=== PATIENT | female | born 1945 | race Hispanic/Latino ===

== ENCOUNTER 2017-03-30 14:30 | Observation (INO) | payer MEDICARE, MEDICAID ==
[2017-03-30 14:42] VITALS: BMI 31.9
[2017-03-30] MEDS ORDERED: Albuterol-Ipratrop 3 mg / 0.5 (3 ml) UD IH STA (15:11)
--- NOTE | 2017-03-30 15:11 | ED PDOC ---
Arrival/HPI <Joel Martinez DO - Last Filed: 03/30/17 15:35> - General Historian: Patient - History of Present Illness Time/Duration: < week Symptom Course: Worsening Quality: Tightness Severity Level: 4 Activities at Onset: Rest, Light <Angela Lancaster - Last Filed: 03/30/17 17:16> - General Chief Complaint: Shortness Of Breath Time Seen by Provider: 03/30/17 14:45 - History of Present Illness Narrative History of Present Illness (Text): 03/30/17 15:04 72 yo F w h/o COPD, active tobacco abuse, vertigo, anxiety, DJD presents to ER with 4 day h/o SOB, palpitations, tight midsternal CP, and elevated BP. Patient states she does not recall when she was doing at the time but approximately 4 days ago suddenly developed shortness of breath, palpitations, tight midsternal CP and palpitations; states she checked her SBP, found it to be 180-190, normally 120-130. Patient states she gets these episodes irrelevant to activity level at the time. States she has felt some L arm tingling during some of these episodes, which have been increasing in frequency. Patient states she would have come to ER last night but did not feel safe driving. Denies abd pain, n/v/d /c, fevers, chills, rashes, edema, confusion, dizziness, diaphoresis. (Angela Lancaster) Past Medical History - Provider Review Nursing Documentation Reviewed: Yes - Travel History Have you recently traveled outside [place] w/in the past 3 mons?: No - Infectious Disease Hx of Infectious Diseases: None - Tetanus Immunization Tetanus Immunization: Unknown - Cardiac Hx Cardiac Disorders: Yes (CAD, CP, cardiac cath x 4) Hx Hypertension: Yes - Pulmonary Hx Respiratory Disorders: Yes Hx Chronic Obstructive Pulmonary Disease (COPD): Yes (active smoker, Home O2 uses prn) Other/Comment: uses O2 at home - Neurological Hx Neurological Disorder: No Hx Paralysis: No - Renal Hx Renal Disorder: No - Endocrine/Metabolic Hx Endocrine Disorders: Yes Hx Diabetes Mellitus Type 2: Yes - Hematological/Oncological Hx Blood Disorders: No Hx Blood Transfusions: No Hx Blood Transfusion Reaction: No - Integumentary Hx Dermatological Disorder: No - Musculoskeletal/Rheumatological Hx Musculoskeletal Disorders: Yes Hx Arthritis: Yes - Gastrointestinal Hx Gastrointestinal Disorders: No - Genitourinary/Gynecological Hx Genitourinary Disorders: No - Psychiatric Hx Psychophysiologic Disorder: Yes Hx Anxiety: Yes Hx Emotional Abuse: No Hx Physical Abuse: No Hx Substance Use: No - Surgical History Hx Cardiac Catheterization: Yes Hx Eye Surgery: Yes - Anesthesia Hx Anesthesia: Yes Hx Anesthesia Reactions: Yes Hx Malignant Hyperthermia: No - Suicidal Assessment Feels Threatened In Home Enviroment: No <Angela Lancaster - Last Filed: 03/30/17 17:16> Family/Social History - Physician Review Nursing Documentation Reviewed: Yes Family/Social History: Hypertension Smoking Status: Current Some Days Smoker Hx Alcohol Use: No Hx Substance Use: No Hx Substance Use Treatment: No <Angela Lancaster - Last Filed: 03/30/17 17:16> Allergies/Home Meds <Joel Martinez DO - Last Filed: 03/30/17 15:35> <Angela Lancaster - Last Filed: 03/30/17 17:16> Allergies/Adverse Reactions: Allergies acetaminophen [From Tylenol] Allergy (Verified 03/30/17 14:41) RASH FISH Allergy (Verified 03/30/17 14:41) RASH iodine Allergy (Verified 03/30/17 14:41) RASH mercury (elemental) Allergy (Verified 03/30/17 14:41) RASH shellfish derived Allergy (Verified 03/30/17 14:41) RASH steroid Allergy (Uncoded 03/30/17 14:41) RASH Home Medications: Home Meds Medication Instructions Recorded Confirmed diaZEpam [Valium] 5 mg PO BID 07/21/16 03/30/17 Albuterol HFA [Ventolin HFA 90 1 inh INH PRN PRN 10/30/16 03/30/17 mcg/actuation (8 g)] Levothyroxine Sodium [Levoxyl] 1 tab PO DAILY 10/30/16 03/30/17 Review of Systems - Physician Review All systems were reviewed & negative as marked: Yes - Review of Systems Constitutional: Normal. absent: Fatigue, Fevers Eyes: Normal. absent: Vision Changes ENT: Normal Respiratory: Normal, SOB. absent: Cough, Sputum Cardiovascular: Chest Pain, Palpitations, TIM. absent: Edema, Calf Pain, Syncope Gastrointestinal: absent: Abdominal Pain, Constipation, Diarrhea, Nausea, Vomiting Genitourinary Female: absent: Dysuria, Frequency Musculoskeletal: absent: Back Pain, Neck Pain Skin: absent: Rash, Skin Lesions Neurological: Headache (left). absent: Dizziness Endocrine: Normal. absent: Diaphoresis Hemo/Lymphatic: Normal Psychiatric: Normal <Angela Lancaster - Last Filed: 03/30/17 17:16> Physical Exam Vital Signs Reviewed: Yes Temperature: Afebrile Blood Pressure: Normal Pulse: Regular Respiratory Rate: Normal Appearance: Positive for: Well-Appearing, Non-Toxic, Comfortable Pain Distress: None Mental Status: Positive for: Alert and Oriented X 3 - Systems Exam Head: Present: Atraumatic, Normocephalic Pupils: Present: PERRL Extroacular Muscles: Present: EOMI Conjunctiva: Present: Normal. No: Icteric Mouth: Present: Moist Mucous Membranes Pharnyx: Present: Normal Neck: Present: Normal Range of Motion. No: Meningeal Signs, JVD Respiratory/Chest: Present: Clear to Auscultation, Decreased Breath Sounds. No : Respiratory Distress, Accessory Muscle Use, Wheezes, Rhonchi Cardiovascular: Present: Regular Rate and Rhythm, Normal S1, S2 Abdomen: Present: Normal Bowel Sounds. No: Tenderness, Distention, Peritoneal Signs, Rebound, Guarding Upper Extremity: Present: Normal Inspection, Cyanosis, NORMAL PULSES. No: Edema Lower Extremity: Present: Normal Inspection. No: Edema Neurological: Present: GCS=15, CN II-XII Intact, Speech Normal Skin: Present: Warm, Dry, Normal Color. No: Rashes Psychiatric: Present: Alert, Oriented x 3, Normal Insight, Normal Concentration <Angela Lancaster - Last Filed: 03/30/17 17:16> Vital Signs Temp Pulse Resp BP Pulse Ox 03/30/17 16:57 65 18 148/72 100 03/30/17 15:01 98.1 F 72 18 152/71 H 97 Medical Decision Making <Joel Martinez DO - Last Filed: 03/30/17 15:35> - Lab Interpretations I have reviewed the lab results: Yes - RAD Interpretation Gyroscopic Instrument Tester: Radiologist - EKG Interpretation Interpreted by ED Physician: Yes Type: 12 lead EKG Comparison: Similar to previous EKG <Angela Lancaster Last Filed: 03/30/17 17:16> ED Course and Treatment: A 72 year old female with shortness of breath. Patient notes palpitations, midsternal chest tightness and elevated blood pressure. In agreement with resident note, which includes further HPI details. Patient was seen and evaluated with resident, came up with plan and treatment together. (Joel Martinez DO) 03/30/17 15:32 75 yo F w h/o COPD, active smoker, anxiety presents with 4 days h/o episodic elevated BP, substernal tight CP, palpitations. Cardio ISO, labs, EKG, CXR. ASA , kelton. Spoke with Dr. Monsivais, who accepts admission to her service for tele obs for serial troponins, continue cardiac workup. 03/30/17 16:44 Patient complains of persistent CP, epigastric abdominal pain and Left "head pain that is not a headache." Patient adamantly refuses IV morphine. Will try Toradol and protonix. (Angela Lancaster) - Lab Interpretations Lab Results: 03/30/17 16:06 03/30/17 16:06 Lab Results 03/30/17 16:06: Free T4 0.96, Total T3 1.04, TSH 3rd Generation 2.64 03/30/17 16:06: Sodium 142, Potassium 3.7, Chloride 102, Carbon Dioxide 29, Anion Gap 15, BUN 17, Creatinine 0.8, Est GFR ( Amer) > 60, Est GFR (Non- Af Amer) > 60, Random Glucose 88, Calcium 9.5, Magnesium 2.1, Total Bilirubin 0.8, AST 21, ALT 23, Alkaline Phosphatase 81, Lactate Dehydrogenase 432, Total Creatine Kinase 50, Troponin I < 0.01, Total Protein 7.9, Albumin 4.1, Globulin 3.8, Albumin/Globulin Ratio 1.1 03/30/17 16:06: WBC 10.8, RBC 4.56, Hgb 13.6, Hct 39.7, MCV 87.1, MCH 29.8, MCHC 34.3, RDW 14.1, Plt Count 260, MPV 9.6, Gran % 67.4, Lymph % (Auto) 24.6, Harlan % (Auto) 7.3 H, Eos % (Auto) 0.5 L, Baso % (Auto) 0.2, Gran # 7.27 H, Lymph # 2.7, Harlan # 0.8 H, Eos # 0.1, Baso # 0.02 03/30/17 16:00: Urine Color Straw, Urine Appearance Clear, Urine pH 6.0, Ur Specific [place] 1.010, Urine Protein Negative, Urine Glucose (UA) Negative, Urine Ketones Negative, Urine Blood Moderate H, Urine Nitrate Negative, Urine Bilirubin Negative, Urine Urobilinogen 0.2, Ur Leukocyte Esterase Trace H, Urine RBC Pending, Urine WBC Pending - RAD Interpretation Narrative RAD Interpretations (Text): 03/30/17 16:14 CXR - No active disease (Angela Lancaster) Radiology Orders: 03/30/17 15:01 CHEST PORTABLE [RAD] Stat - EKG Interpretation EKG Interpretation (Text): 03/30/17 16:16 NSR rate 72bpm, normal intervals, nonspecific ST/T changes (Angela Lancaster) - Medication Orders Current Medication Orders: Discontinued Medications Albuterol/Ipratropium (Duoneb 3 Mg/0.5 Mg (3 Ml) Ud) 3 ml IH STAT STA Stop: 03/30/17 15:12 Last Admin: 03/30/17 15:55 Dose: 3 ml Aspirin (Aspirin) 325 mg PO STAT STA Stop: 03/30/17 15:01 Last Admin: 03/30/17 15:54 Dose: Not Given Non-Admin Reason: Patient Refused Ketorolac Tromethamine (Toradol) 15 mg IVP STAT STA Stop: 03/30/17 16:33 Last Admin: 03/30/17 17:02 Dose: 15 mg Pantoprazole Sodium (Protonix Inj) 40 mg IVP STAT STA Stop: 03/30/17 16:45 - PA / [employer] / Resident Statement EDWARD has reviewed & agrees with the documentation as recorded. EDWARD has examined the patient and agrees with the treatment plan. - Scribe Statement The provider has reviewed the documentation as recorded by the Scribe <Joel Martniez DO - Last Filed: 03/30/17 15:35> <Angela Lancaster - Last Filed: 03/30/17 17:16> - Scribe Statement Sunita Lyon Provider Scribe Attestation: All medical record entries made by the Scribe were at my direction and personally dictated by me. I have reviewed the chart and agree that the record accurately reflects my personal performance of the history, physical exam, medical decision making, and the department course for this patient. I have also personally directed, reviewed, and agree with the discharge instructions and disposition. (Joel Martinez DO) Disposition/Present on Arrival <Joel Martinez DO - Last Filed: 03/30/17 15:35> - Present on Arrival Any Indicators Present on Arrival: No History of DVT/PE: No History of Uncontrolled Diabetes: No Urinary Catheter: No History of Decub. Ulcer: No History Surgical Site Infection Following: None - Disposition Have Diagnosis and Disposition been Completed?: Yes Disposition Time: 16:05 Patient Plan: Admission <Angela Lancaster - Last Filed: 03/30/17 17:16> - Disposition Diagnosis: Chest pain Disposition: HOSPITALIZED Patient Problems: Current Active Problems Problem Status Onset Chest pain Acute Condition: FAIR Discharge Instructions (ExitCare): Chest Pain (ED) Referrals: Prachi Monsivais MD [Primary Care Provider] - Follow up with primary
--- NOTE | 2017-03-30 15:30 | RAD ---
HISTORY: chest pain COMPARISON: 10/30/2016 FINDINGS: LUNGS: No active pulmonary disease. PLEURA: No significant pleural effusion identified, no pneumothorax apparent. CARDIOVASCULAR: Normal. OSSEOUS STRUCTURES: No significant abnormalities. VISUALIZED UPPER ABDOMEN: Normal. OTHER FINDINGS: None. IMPRESSION: No active disease.
[2017-03-30 16:13] LABS: ADD MANUAL DIFF? NO
[2017-03-30] MEDS ORDERED: Morphine 2 mg/ml ISec IVP STA (16:28)
[2017-03-30 16:34] LABS: ALB/GLOB RATIO 1.1 (1.1-1.8); ALKALINE PHOSPHATASE 81 U/L (38-133); ALT/SGPT 23 U/L (7-56); AST/SGOT 21 U/L (15-39); BASO # 0.02 K/mm3 (0.0-2.0); BASO % 0.2 % (0.0-3.0); BILIRUBIN,TOTAL 0.8 mg/dL (0.2-1.3); BLOOD UREA NITROGEN 17 mg/dL (7-21); CALCIUM 9.5 mg/dL (8.4-10.5); CARBON DIOXIDE 29 mmol/L (21-33); CHLORIDE 102 mmol/L (98-107); EOS # 0.1 (0.0-0.7); EOS % 0.5 % (1.5-5.0); GFR AFRICAN-AMERICAN > 60; GLUCOSE,RANDOM 88 mg/dL (70-110); GRAN # 7.27 (1.4-6.5); GRAN % 67.4 % (50.0-68.0); HEMATOCRIT 39.7 % (36.0-48.0); LYMPH # 2.7 (1.2-3.4); LYMPH % 24.6 % (22.0-35.0); MAGNESIUM 2.1 mg/dL (1.7-2.2); MEAN CELL VOLUME 87.1 fL (80.0-105.0); MEAN CORPUSCULAR HEMOGLOBIN 29.8 pg (25.0-35.0); MEAN CORPUSCULAR HGB CONC 34.3 g/dl (31.0-37.0); MEAN PLATELET VOLUME 9.6 fl (7.0-11.0); MONO # 0.8 (0.1-0.6); MONO % 7.3 % (1.0-6.0); PLATELET COUNT 260 10^3/uL (120.0-450.0); POTASSIUM 3.7 mmol/L (3.6-5.0); RED CELL DISTRIBUTION WIDTH 14.1 % (11.5-14.5); SODIUM 142 mmol/L (132-148); TOTAL PROTEIN 7.9 g/dL (5.8-8.3); WHITE BLOOD COUNT 10.8 10^3/ul (4.5-11.0)
[2017-03-30 16:45] LABS: URINE APPEARANCE CLEAR (CLEAR); URINE BILIRUBIN NEGATIVE (NEGATIVE); URINE BLOOD MODERATE (NEGATIVE); URINE COLOR STRAW (YELLOW); URINE GLUCOSE (UA) NEGATIVE (NEGATIVE); URINE KETONE NEGATIVE (NEGATIVE); URINE LEUKOCYTE ESTERASE TRACE Leu/uL (NEGATIVE); URINE PROTEIN NEGATIVE mg/dL (<30 mg/dL); URINE UROBILINOGEN 0.2 E.U./dL (<1 E.U./dL)
[2017-03-30 16:46] LABS: TROPONIN I < 0.01 ng/mL
[2017-03-30 16:50] LABS: FREE T4 0.96 ng/dL (0.78-2.19)
[2017-03-30 17:04] LABS: T3 1.04 ng/mL (0.97-1.69); THYROID STIMULATING HORMONE 2.64 mIU/mL (0.46-4.68)
[2017-03-30 17:45] LABS: URINE BACTERIA FEW (NEG); URINE EPITHELIAL CELLS 0 - 2 /hpf (0-5); URINE WBC 0 - 2 /hpf (0-6)
[2017-03-30] MEDS ORDERED: Levothyroxine 25 MCG TAB PO STA (19:50)
[2017-03-30] MEDS: Levalbuterol 0.63 MG/3 ML Inhal Soln UD IH SCH (20:16)
[2017-03-30 21:07] LABS: CHOLESTEROL 211 mg/dL (130-200)
[2017-03-30 21:49] LABS: TROPONIN I < 0.01 ng/mL
[2017-03-30] MEDS: Insulin Reg-LOW-Coverage SC SCH (22:08)
--- NOTE | 2017-03-30 22:10 | HP ---
HISTORY OF PRESENT ILLNESS: The patient is a 72-year-old who came to Emergency Room because of not f eeling well. She was complaining that she was having cough and congestion with increasing shortness of breath and she was also checking her blood pressure at home. That was fluctuating too. It went up to 180. She felt some heart pressure so she came to Emergency Room for further evaluation. She den ies any nausea or vomiting. Does have some headache and periorbital pressure. She is complaining of shortness of breath progressively increasing for the last 4 days associated with some midsternal jay st discomfort and palpitations. She still actively smokes. She gets chest pain with and without exe rtion. Denies any nausea. Does complain of epigastric discomfort that is chronic. PAST MEDICAL HISTORY: 1. Severe degenerative disk disease. 2. Anxiety disorder. 3. H. pylori gastritis. 4. History of fall with shoulder injury followed by surgical intervention of the right shoulder. ALLERGIES: SHE IS ALLERGIC TO ACETAMINOPHEN, FISH, IODINE, MERCURY AND STEROIDS. MEDICATIONS AT HOME: She is on Valium 5 mg twice a day, meclizine 25 q. 6 hours p.r.n., levothyroxin e 25 mcg daily, nebulizer treatment. SOCIAL HISTORY: She is single and homosexual and still smokes here and there. REVIEW OF SYSTEMS: Generalized weakness, headache, midsternal discomfort off and on. PHYSICAL EXAMINATION: GENERAL: She is awake and alert, communicative. VITAL SIGNS: She is afebrile, pulse 57, respirations 18, blood pressure . LUNGS: Bilateral fair airflow, expiratory rhonchi. HEART: S1, S2 audible. ABDOMEN: Soft and nontender. Slight epigastric discomfort. No rebound, no guarding. NEUROLOGIC: She is awake and alert, communicative. LABORATORY DATA: WBC is 10.8, hemoglobin 13.6, hematocrit 39, platelet 60. Chemistry: Sodium 142, potassium 3.7, chloride 102, CO2 , BUN 17, creatinine 0.8, blood sugar of 88. LFTs are within n ormal limits. Urinalysis showed moderate blood, trace leukocyte. X-ray of the chest is unremarkable . ASSESSMENT: 1. Chest pain, rule out underlying coronary artery disease. 2. Active smoker. 3. Chronic obstructive pulmonary disease exacerbation. 4. Anxiety disorder. 5. Chronic gastroesophageal reflux disease. 6. Degenerative disk disease. PLAN: The patient will be placed in observation. I will request Dr. Chong to see the patient. I will start her on Xopenex. SHE IS ALLERGIC TO STEROIDS; we will avoid that. Will give her Protonix and w ill reevaluate the patient in a.m. Prachi Monsivais MD cc: [phone] TT: 03/30/2017 22:10:05 ln
[2017-03-31] MEDS: Levalbuterol 0.63 MG/3 ML Inhal Soln UD IH SCH ×4 (02:57→19:31)
[2017-03-31] MEDS: Pantoprazole 40 mg EC Tab PO SCH (05:51)
[2017-03-31 07:40] LABS: ALB/GLOB RATIO 1.2 (1.1-1.8); ALKALINE PHOSPHATASE 78 U/L (38-133); ALT/SGPT 28 U/L (7-56); AST/SGOT 20 U/L (15-39); BLOOD UREA NITROGEN 17 mg/dL (7-21); CALCIUM 9.6 mg/dL (8.4-10.5); CARBON DIOXIDE 25 mmol/L (21-33); CHLORIDE 105 mmol/L (98-107); GFR AFRICAN-AMERICAN > 60; GLUCOSE,RANDOM 92 mg/dL (70-110); PHOSPHOROUS 4.8 mg/dL (2.5-4.5); POTASSIUM 3.9 mmol/L (3.6-5.0); SODIUM 142 mmol/L (132-148); TOTAL PROTEIN 7.1 g/dL (5.8-8.3)
[2017-03-31] MEDS: Insulin Reg-LOW-Coverage SC SCH ×4 (07:56→22:11)
[2017-03-31] MEDS ORDERED: Levothyroxine 25 MCG TAB PO SCH (10:00)
--- NOTE | 2017-03-31 12:22 | CT ---
PROCEDURE: CT HEAD WITHOUT CONTRAST. HISTORY: headache COMPARISON: 07/21/2016 TECHNIQUE: Axial computed tomography images were obtained through the head/brain without intravenous contrast. Radiation dose: Total exam DLP = 689 mGy-cm. This CT exam was performed using one or more of the following dose reduction techniques: Automated exposure control, adjustment of the mA and/or kV according to patient size, and/or use of iterative reconstruction technique. FINDINGS: HEMORRHAGE: No intracranial hemorrhage. BRAIN: No mass effect or edema. No atrophy or chronic microvascular ischemic changes. VENTRICLES: Unremarkable. No hydrocephalus. CALVARIUM: Unremarkable. PARANASAL SINUSES: Unremarkable as visualized. No significant inflammatory changes. MASTOID AIR CELLS: There is chronic mastoiditis on the left unchanged. OTHER FINDINGS: None. IMPRESSION: No acute intracranial findings. Chronic left-sided mastoiditis
--- NOTE | 2017-03-31 12:42 | PN ---
DATE: 03/31/2017 SUBJECTIVE: The patient is a 72-year-old who came in with fluctuating blood pressure, having left-si ded headache, having chest discomfort and chest pressure. PHYSICAL EXAMINATION: GENERAL: Today, she still has chest pressure and still complained of left-sided headache, better sierra n before. VITAL SIGNS: She is afebrile, pulse 89, respirations 19, blood pressure 136/64. LUNGS: Bilateral fair airflow, no rhonchi or crackle. HEART: S1, S2 audible. ABDOMEN: Soft, nontender, no rebound, no guarding. NEUROLOGIC: The patient is awake and alert, communicative. Moves all extremities. LABORATORY EXAMINATION: Blood sugar is 164. Today's sodium 142, potassium 3.9, chloride 105, CO2 of 25, BUN 17, creatinine 0.8, blood sugar of 92. Her urinalysis is unremarkable. CT scan of the head is pending. ASSESSMENT: 1. Chest pain, noncardiac. She had a stress test done in 06/[address] Lacey and that seems to be un remarkable. 2. Chronic obstructive pulmonary disease exacerbation. 3. Active smoking. 4. Gastroesophageal reflux disease. 5. Headache. The patient stated her daughter was recently diagnosed with brain aneurysm. She is co ncerned about that. PLAN: Get neuro evaluation also for evaluation of her headache. Once all this workup is done and re sults are available, we will make discharge plan. I will also start patient on small dose of Solu-Me drol. Continue her on Xopenex. Encourage physical therapy. We will make disposition plan either to night or tomorrow morning. Prachi Monsivais MD cc: [phone] TT: 03/31/2017 12:41:34 Confirmation # [id number] Dictation # [id number] sn
[2017-03-31] MEDS: MethylPREDNISolone 40 mg Vial IV SCH ×2 (13:07→22:12)
--- NOTE | 2017-03-31 13:51 | CON ---
DATE: 03/31/2017 REASON FOR CONSULTATION: Cardiac evaluation, chest pain on coughing, congestion. BRIEF CLINICAL HISTORY: This is a 72-year-old, possible transgender, with history of cardiac cathete rization multiple times, nonobstructive coronary artery disease, admitted with not feeling well, comp laining of congestion, cough and increasing shortness of breath and coughing feels chest pain and say s that blood pressure was fluctuating and not feeling good, so came in here. Also complained of shor tness of breath and 4 days ago had chest pain. BRIEF CLINICAL HISTORY: This is a 72-year-old, as mentioned transgender, history of multiple cardiac catheterizations, nonobstructive coronary artery disease, being followed by Dr. Shore, now being follo wed by Dr. Monsivais who admitted feeling very weak, dizzy, congestion, cough, chest pain 4 days ago, r etrosternal chest pain. PAST MEDICAL HISTORY: Significant for partial small bowel obstruction many years ago, post surgery, history of degenerative joint disease, history of trauma, history of multiple chest pain, noncardiac chest pain, multiple catheterizations, nonobstructive coronary artery disease, history of COPD, histo ry of significant hypertension, hyperlipidemia, history of TIA, history of COPD, history of asthma, h istory of tobacco abuse in the past. SOCIAL HISTORY: History of smoking, claims quit. Denies any history of drinking. PREVIOUS CARDIAC WORKUP: History of cardiac catheterization x 4, nonobstructive coronary artery dise ase. Last stress test 07/22/2016 that shows normal myocardial perfusion study, ejection fraction repo rted 73%, dated 07/22/2016. The patient had echocardiography 07/22/2016 that shows ejection fraction 5 5%-60%, mild aortic regurgitation, mild mitral regurgitation, mild tricuspid regurgitation, right kwaku tricular systolic pressure 36, no pericardial effusion noted. REVIEW OF SYSTEMS: As per HPI. CURRENT MEDICATIONS: The patient at home taking Valium, meclizine, levothyroxine, albuterol. REVIEW OF SYSTEMS: As per HPI. PHYSICAL EXAMINATION: VITAL SIGNS: Temperature afebrile, heart rate 89, blood pressure 136/64. HEENT: PERRLA. Extraocular muscles intact. NECK: Supple. No carotid bruits. No thyromegaly. CHEST: Clear to auscultation. HEART: S1, S2 regular. ABDOMEN: Soft. EXTREMITIES: Clubbing, cyanosis negative. BLOOD WORKUP: WBC 10.8, hemoglobin 13.6, hematocrit 39.7, platelet count 260. Chemistry shows sodiu m 142, potassium 3.9, chloride 105, carbon dioxide 25, anion gap of 16, BUN 17, creatinine 0.7. Trop onin 0.01 x 1, negative. TSH 1.04. EKG showed normal sinus, no acute ST-T changes noted. IMPRESSION: Atypical chest pain, history of multiple cardiac catheterizations in the past, nonobstru ctive coronary artery disease, hypothyroidism, ex-smoker. MOST RECENT CARDIAC WORKUP: The patient had a stress test 07/22/2016 that shows normal myocardial per fusion study, ejection fraction 72%. The patient had echocardiography also at that time that shows e jection fraction 55%, mitral regurgitation, mild tricuspid regurgitation, right ventricular systolic pressure 38. The patient had also Holter monitor that shows no significant arrhythmia, dated 07/24/20 15. Chest pain appears musculoskeletal and on coughing and so far, troponin remains negative, no evidence of acute myocardial infarction. RECOMMENDATION: We will follow up. If third set is negative, patient can be discharged home. Thank you, Dr. Monsivais, for providing us the opportunity in taking care of the patient. We will wait for the morning and if negative, patient can be discharged home. Dulce Lacey MD cc:Prachi Monsivais MD [phone] TT: 03/31/2017 12:15:45 Confirmation # [id number] Dictation # [id number] en
--- NOTE | 2017-03-31 20:38 | CON ---
DATE: 03/31/2017 REASON FOR CONSULTATION: Headaches. HISTORY OF PRESENT ILLNESS: The patient is a 72-year-old female who has been asked for evaluation of her headaches. As per patient, she has been having headaches mainly in the frontal region. She has this for quite a while. She said it fluctuates in intensity. It can last several hours. Headaches are not associated with any nausea, vomiting, photophobia or phonophobia. She was admitted with com plaints of shortness of breath. The patient also complains of dizziness which comes and goes. She a pparently has it for a while. She has a perforated eardrum on the left side. She has been taking me clizine and that does seem to help her dizziness. REVIEW OF SYSTEMS: Positive for chest pain. Positive for shortness of breath. Denies any constipat ion, diarrhea, dysuria, pyuria, cough or sputum production. Denies any hallucinations, skin rash. PAST MEDICAL HISTORY: Includes COPD, anxiety. MEDICATIONS: At home include Valium, meclizine, levothyroxine, and albuterol. ALLERGIES: ACETAMINOPHEN, FISH, IODINE, MERCURY AND SHELLFISH. SOCIAL HISTORY: She smokes 4-5 cigarettes a day. Denies use of any alcohol or illicit drugs. FAMILY HISTORY: Reviewed and noncontributory to the case. PHYSICAL EXAMINATION: GENERAL: The patient is an elderly pleasant female lying on the bed in no acute distress. VITAL SIGNS: Her blood pressure is 138/59, heart rate is 59 per minute, breathing at a rate of 16 pe r minute, temperature is 98 degrees Fahrenheit. HEENT: Normocephalic, atraumatic. NECK: Supple. There are no carotid bruits. LUNGS: Clear. CARDIOVASCULAR: S1, S2 audible with no murmurs. ABDOMEN: Soft, nontender, bowel sounds present. NEUROLOGIC EXAMINATION: MENTAL STATUS: The patient is awake, alert, oriented to time, place, person. Speech is fluent. Nam ing and repetition normal. Memory and cognition are intact. CRANIAL NERVES: Pupils are 4 mm bilaterally, reactive to light. Visual jesus are full. Extraocula r movements are intact. There is no facial asymmetry. Palate is upgoing bilaterally and tongue is m idline. MOTOR: Tone is normal. Power is 5/5 bilaterally in all extremities. Reflexes +1 and symmetrical. Plantars downgoing bilaterally. LABORATORY DATA: Reviewed, shows WBC of 10.8, hemoglobin 13.6, hematocrit of 39.7 and platelets of 2 60. Sodium is 142, potassium 3.9, chloride 105, carbon dioxide 25, BUN of , creatinine 0.8, and glucose of 92. Her T4 and TSH are within normal limits. She had a CT scan of the head done which s hows no acute intracranial findings. Chronic left-sided mastoiditis. IMPRESSION: 1. Headaches, which appear to be secondary to her anxiety/stress and is episodic in nature. 2. Dizziness, which appears to be labyrinthine dysfunction with history of chronic left-sided mastoi ditis. RECOMMENDATIONS: 1. The patient may take as needed like acetaminophen or nonsteroidal anti-inflammatory drugs f or her headaches. However, she does not want to take any medication at present. 2. The patient to be continued on meclizine for her dizziness. 3. If patient's headache gets more frequent and the patient is willing to take some prophylactic med ication like nortriptyline may be tried in the future. 4. No further neurologic recommendations at present. Please call neurology on an as needed basis. Thank you for the opportunity to participate in the care of this patient. Magi Florentino MD cc: [phone] TT: 03/31/2017 20:38:15 Confirmation # [id number] Dictation # [id number] eleuterio
--- NOTE | 2017-03-31 23:03 | CARD ---
APPROVED REPORT EKG Measurement Heart [id number] <Conclusion> Normal sinus rhythm Normal ECG
[2017-04-01] MEDS: Levalbuterol 0.63 MG/3 ML Inhal Soln UD IH SCH ×3 (01:44→13:42)
[2017-04-01] MEDS: Pantoprazole 40 mg EC Tab PO SCH (06:12)
[2017-04-01] MEDS ORDERED: Levothyroxine 25 MCG TAB PO SCH (07:30)
[2017-04-01] MEDS: Insulin Reg-LOW-Coverage SC SCH ×4 (08:11→17:21)
[2017-04-01 09:39] VITALS: BP 124/65; PULSE 62; RESP 19; TEMP 98.1; O2SAT 93
[2017-04-01] MEDS: MethylPREDNISolone 40 mg Vial IV SCH (09:42)
--- NOTE | 2017-04-01 13:20 | PN ---
DATE: 04/01/2017 The patient is in room 364, bed 1. REASON FOR CONSULTATION: Chest pain on coughing. HISTORY OF PRESENT ILLNESS: A 72-year-old, possible transgender with a history of cardiac catheteri zation multiple times, which showed nonobstructive coronary artery disease, admitted with feeling of congestion, cough, shortness of breath, and chest pain. When the patient gets coughing, gets chest p ain. No history of chest pain on exertion. The patient in 06/2016 had a stress test, echo, and Holter without any significant abnormality. The patient lying flat in bed without any respiratory distress. PHYSICAL EXAMINATION: VITAL SIGNS: Blood pressure 124/65, respirations 19, pulse 62, temperature 98.1. HEENT: Head is normocephalic. Eyes: Pupils are normal. Conjunctivae are normal. LUNGS: Clear. CARDIOVASCULAR: S1, S2. ABDOMEN: Soft, nontender, no organomegaly. Bowel sounds normal. EXTREMITIES: No clubbing, no cyanosis. LABORATORY DATA: WBC 10.8, hemoglobin 13.6, hematocrit 39.7, platelets 260. Sodium 142, potassium 3 .9, BUN 17, creatinine 0.8, random sugar 140. AST and ALT normal. Troponin less than 0.01, total pr otein 7.1, albumin 3.9. DIAGNOSES: Chest pain is atypical. It only happens when cough. Nonobstructive coronary artery dise ase, hypothyroidism, ex-smoker. PLAN: Treat the chest pain symptomatically. The patient is on Synthroid, Xopenex, methylprednisone 30 mg IV q. 12 hours, Protonix 40 daily. We will continue present therapy. We will follow with you. Dulce Townsend MD cc: [id number] TT: 04/01/2017 13:19:58 Confirmation # [id number] Dictation # [id number] dania
--- NOTE | 2017-04-01 21:30 | CON ---
DATE: 04/01/2017 Seen and examined at the [facility] earlier this afternoon. REQUEST FOR CONSULT: For intermittent diarrhea. HISTORY OF PRESENT ILLNESS: This is a 72-year-old female with a history of degenerative disk disease , chronic back pain, diabetes mellitus. The patient came to the Emergency Room with complaints of co ughing and congestion as well as shortness of breath. The patient came to the Emergency Room for fur ther evaluation. She did complain of some midsternal chest discomfort and palpitation as well as epi gastric discomfort but states it is chronic. This patient was seen by our service back in 06/2016. At that time, she complained of atypical chest pain. She underwent an endoscopy and found to have mi ld chronic gastritis with positive H. pylori. Gastric polyp was negative for any intestinal metaplas ia. The patient refused any treatment for H. pylori. She is aware that if left untreated it can cau se ulcers and possibly even cancer. This time she is complaining of intermittent diarrhea. She stat es that she has initially a regular bowel movement followed by diarrhea. Her last colonoscopy was ov er 5 years ago. She was being followed by Dr. Nevarez (legal financial specialist). She was scheduled a few times for followup as the patient had history of colon polyps. She reported that on the day that sh e had to have colonoscopy she refused to have procedure done, and since then will not have a colonosc opy, and she states that she is aware of the consequences of possible malignancy. Denies any melena or bright red blood per rectum. Her weight has remained steady. No reports of any nausea, vomiting, or any anorexia. No complaints of any dysphagia as well. In the Emergency Room, she had a head CT done for headache and that was negative for any hemorrhage or any infarcts; shows chronic left-sided mastoiditis. PAST MEDICAL HISTORY: As stated above. Also includes hypertension, diabetes mellitus, chronic back pain; positive H. pylori, not treated, patient refused treatment; anxiety disorder, history of fall w ith shoulder injury. PAST SURGICAL HISTORY: Right shoulder arthroscopy. Last endoscopy was 06/2016. Last colonoscopy wa s over 5 years ago, history of colon polyps. The patient refuses to have a colonoscopy. FAMILY HISTORY: Noncontributory at this time. SOCIAL HISTORY: The patient is a current day smoker. Denies any ETOH or substance abuse. Is a homo sexual. MEDICATIONS: Reviewed as per MAR. ALLERGIES: ACETAMINOPHEN, FISH, IODINE, MERCURY AND STEROIDS. REVIEW OF SYSTEMS: Systems reviewed with positive findings, see HPI. VITAL SIGNS: Temperature is 98.1, blood pressure 124/65, pulse 62, respirations 19, 93 O2 saturation . LABORATORY DATA: WBC 10.8, H and H are 13.6 and 39.7, platelets of 260. Sodium 142, K is 3.9, BUN 17, creatinine is 0.8. LFTs are within normal limits. Troponin is negative x 1. Urine was done whi ch shows a trace of leukocyte esterase, moderate blood, negative for protein and ketones. PHYSICAL EXAMINATION: HEENT: Sclerae are anicteric. NECK: Supple. CARDIAC: S1, S2. LUNGS: Decreased breath sounds. Did not hear any rales or wheeze. ABDOMEN: With bowel sounds. Softly distended. Some tenderness palpated in midabdomen. No rebound, guarding, or organomegaly. EXTREMITIES: Positive pulses. No edema noted. NEUROLOGIC: Awake, alert, and oriented. ASSESSMENT: This is a 72-year-old female with history of diabetes mellitus, hypertension, colon poly p; positive Helicobacter pylori, not treated, patient refuses treatment, complaining of intermittent abdominal pain. Rule out any Clostridium difficile, less likely as patient has not had any recent an tibiotic use. Rule out any malabsorption. PLAN: We will request for stool studies, C. diff, ova and parasite, stool culture and also obtain fe emmanuelle fat. Did discuss with the patient in detail regarding treatment for H. pylori, explained again. She is aware that untreated H. pylori may cause ulcers, severe ulcerations as well as gastric cancer . The patient refuses any treatment, does not want any antibiotics. Also discussed with the patient regarding colonoscopy evaluation in view of history of colon polyps and complaints of intermittent d iarrhea. The patient again refuses colonoscopy, stating that she is too old and also is afraid of th e risk factors involved. Did discuss with the patient that these tests are not 100%, that they are f or diagnostics. Risks, benefits and alternatives were discussed with the patient in detail. The pat ient may likely be discharged home today. Discussed can follow up in our outpatient office. Thank you for this consult and for allowing us to participate in your patient's care. We will make f urther recommendation based upon patient's clinical course. The patient was seen and case discussed with Dr. Sarmiento. Sarah CRAWFORD cc: [id number] TT: 04/01/2017 21:29:15 Confirmation # [id number] Dictation # [id number] mn
--- NOTE | 2017-04-01 23:49 | DS ---
The patient is a 72-year-old, seen and examined. Still has some chest tightness but much better than before. Complained of left-sided temporal and parietal area pain. Also complained of decreased imp aired hearing from the left side. The patient states she has multiple surgeries on the left ear done by Dr. Baldwin, and they told her that nothing can be done, however. PHYSICAL EXAMINATION: GENERAL: She feels a little better than before. VITAL SIGNS: She is afebrile, pulse 62, respirations 19, blood pressure 124/65. LUNGS: Bilateral fair airflow; however, has diffusely decreased breath sounds with expiratory rhonch i. HEART: S1, S2 audible. No murmur. ABDOMEN: Soft, nontender, no rebound, no guarding. NEUROLOGIC: The patient is awake and alert, able to communicate. LABORATORY EXAM: Blood sugar is 114. Her urine cultures are negative. CT scan of the head shows ch ronic mastoiditis. ASSESSMENT AND PLAN: 1. Labile hypertension, seems to be stable now. 2. Chronic mastoiditis. 3. Gastroesophageal reflux disease. 4. Intermittent diarrhea. PLAN: The patient is going to be discharged home on Protonix 40 daily, prednisone 20 mg daily for a week. She will continue on nebulizer treatment and I will follow her as outpatient. Prachi Monsivais MD cc: [phone] TT: 04/01/2017 23:48:56 ok
== END 2017-04-01 18:59 | disposition home or self-care (01) ==
LOC: ED 14:30 → ERH 17:44 → 2RNO 21:50 → 3RNO 03-31 19:03
PROVIDERS: ADMIT Internal Medicine; ATTEND Internal Medicine
DX: R07.89 Other chest pain (principal); I10 Essential (primary) hypertension; H70.12 Chronic mastoiditis, left ear; J44.1 Chronic obstructive pulmonary disease with (acute) exacerbation; K21.9 Gastro-esophageal reflux disease without esophagitis; R19.7 Diarrhea, unspecified; R42 Dizziness and giddiness; M19.90 Unspecified osteoarthritis, unspecified site; F41.9 Anxiety disorder, unspecified; F17.210 Nicotine dependence, cigarettes, uncomplicated; I25.10 Atherosclerotic heart disease of native coronary artery without angina pectoris; E78.5 Hyperlipidemia, unspecified; E03.9 Hypothyroidism, unspecified; R51 Headache; E11.9 Type 2 diabetes mellitus without complications; M54.9 Dorsalgia, unspecified; G89.29 Other chronic pain; K29.50 Unspecified chronic gastritis without bleeding; B96.81 Helicobacter pylori [H. pylori] as the cause of diseases classified elsewhere; H91.90 Unspecified hearing loss, unspecified ear; Z86.010 Personal history of colon polyps; Z86.73 Personal history of transient ischemic attack (TIA), and cerebral infarction without residual deficits
CPT/HCPCS: 36415; 70450; 71010; 80053; 80061; 81001; 82550; 82948; 83036; 83615; 83735; 84100; 84439; 84443; 84480; 84484; 85025; 87086; 93005; 94640; 94760; 96374; 96375; 96376; 99285; C9113; G0378; J1885; J2920

== ENCOUNTER 2017-07-22 15:20 | Observation (INO) | payer MEDICARE, MEDICAID ==
[2017-07-22 15:28] VITALS: BMI 31.4
--- NOTE | 2017-07-22 15:29 | ED PDOC ---
Arrival/HPI - General Time Seen by Provider: 07/22/17 15:24 Historian: Patient - History of Present Illness Narrative History of Present Illness (Text): 07/22/17 15:53 A 72 year old female, whose past medical history includes CAD, chest pain, Cardiac cath x 4, vertigo, and copd, presents to the emergency department complaining of elevated BP (150s), intermittent chest pain, and shortness of breath for a few months. Patient reports she noticed her fluctuating blood pressure 4 days ago. Patient denies of any other complaints. Time/Duration: < week (few months) Symptom Onset: Sudden Symptom Course: Unchanged Activities at Onset: Rest, Light Context: Home Past Medical History - Provider Review Nursing Documentation Reviewed: Yes - Infectious Disease Hx of Infectious Diseases: None - Tetanus Immunization Tetanus Immunization: Unknown - Cardiac Hx Cardiac Disorders: Yes (CAD, CP, cardiac cath x 4) Hx Hypertension: Yes - Pulmonary Hx Respiratory Disorders: Yes Hx Chronic Obstructive Pulmonary Disease (COPD): Yes (active smoker, Home O2 uses prn) Other/Comment: Nebulizer tx at home prn - Neurological Hx Neurological Disorder: No Other/Comment: hx vertigo - HEENT Hx Cataracts: Yes (sx bilat 2012) Other/Comment: bilat eyelid surg for drooping 2013 - Renal Hx Renal Disorder: No - Endocrine/Metabolic Hx Hypothyroidism: Yes (borderline) - Hematological/Oncological Hx Blood Disorders: No - Integumentary Hx Dermatological Disorder: No - Musculoskeletal/Rheumatological Hx Musculoskeletal Disorders: Yes Hx Arthritis: Yes Hx Degenerative Joint Disease: Yes Hx Falls: Yes - Gastrointestinal Hx Gastroesophageal Reflux: Yes - Genitourinary/Gynecological Hx Genitourinary Disorders: No - Psychiatric Hx Psychophysiologic Disorder: Yes Hx Anxiety: Yes Hx Emotional Abuse: No Hx Panic Disorder: Yes Hx Physical Abuse: No Hx Substance Use: No Other/Comment: hx claustrophobia - Surgical History Hx Cardiac Catheterization: Yes Hx Hysterectomy: Yes (at age 36) Hx Orthopedic Surgery: Yes (Right shoulder ligament repair) Other/Comment: sm tumors left breast removed 24 yrs ago - Anesthesia Hx Anesthesia: Yes Hx Anesthesia Reactions: Yes Hx Malignant Hyperthermia: No - Suicidal Assessment Feels Threatened In Home Enviroment: No Family/Social History - Physician Review Nursing Documentation Reviewed: Yes Family/Social History: No Known Family HX Smoking Status: Light Smoker < 10 Cigarettes Daily Hx Alcohol Use: No Hx Substance Use: No Hx Substance Use Treatment: No Allergies/Home Meds Allergies/Adverse Reactions: Allergies acetaminophen [From Tylenol] Allergy (Verified 07/22/17 15:28) RASH FISH Allergy (Verified 07/22/17 15:28) RASH iodine Allergy (Verified 07/22/17 15:28) RASH mercury (elemental) Allergy (Verified 07/22/17 15:28) RASH shellfish derived Allergy (Verified 07/22/17 15:28) RASH steroid Allergy (Uncoded 07/22/17 15:28) RASH Home Medications: Home Meds Medication Instructions Recorded Confirmed diaZEpam [Valium] 5 mg PO BID 07/21/16 07/22/17 Physical Exam - Physical Exam Narrative Physical Exam (Text): 07/22/17 15:56 - Review of Systems Constitutional: Normal. absent: Fatigue, Weight Change, Fevers Eyes: Normal ENT: Normal Respiratory: SOB absent: , Cough, Sputum Cardiovascular:Chest pain (intermittent) absent: Palpitations, Syncope Gastrointestinal: Normal absent: Abdominal pain, Diarrhea, Nausea, Vomiting Genitourinary: Normal. absent: Dysuria, Frequency, Hematuria Musculoskeletal: Normal. absent: Arthralgias, Back Pain, Neck Pain Skin: Normal Neurological: Normal absent: Focal Weakness Endocrine: Elevate blood pressure (150s) Hemo/Lymphatic: Normal Psychiatric: Normal - Physical exam Patient appears age appropriate, speaking full sentences without difficulty - Systems Exam Head: Present: Atraumatic, Normocephalic Pupils: Present: PERRL Extraocular Muscles: Present: EOMI Conjunctiva: Present: Normal Mouth: Present: Moist Mucous Membranes Neck: Present: Normal Range of Motion. No: MIDLINE TENDERNESS, Paraspinal Tenderness Respiratory/Chest: Present: Clear to Auscultation, Good Air Exchange. No: Respiratory Distress, Accessory Muscle Use, Tachypnic Cardiovascular: Present: Regular Rate and Rhythm, Normal S1, S2, Peripheral Pulses Present. No: Murmurs Abdomen: Present: Normal Bowel Sounds, No: Tenderness, Peritoneal Signs, Rebound, Guarding, Distention Back: Present: Normal Inspection. No: Midline Tenderness, Paraspinal Tenderness Upper Extremity: Present: Normal Inspection. No: Cyanosis, Edema Lower Extremity: Present: Normal Inspection. No: Edema Neurological: Present: GCS=15, Speech Normal, cranial nerves II through XII fully intact with no cerebellar abnormality, neuro-sensory fully intact. No focal neurological deficits. Skin: Present: Warm, Dry, Normal Color. No: Rashes Lymphatic: Present: OX3, NI, NC Psychiatric: Present: Alert, Oriented x 3, Normal Insight, Normal Concentration Vital Signs Reviewed: Yes Vital Signs Temp Pulse Pulse Resp BP Pulse Ox 07/22/17 15:35 78 07/22/17 15:31 97.9 F 96 H 19 145/84 96 Temperature: Afebrile Blood Pressure: Normal Pulse: Regular Respiratory Rate: Normal Appearance: Positive for: Well-Appearing Pain Distress: None Mental Status: Positive for: Alert and Oriented X 3 - Systems Exam Head: Present: Atraumatic, Normocephalic Pupils: Present: PERRL Extroacular Muscles: Present: EOMI Conjunctiva: Present: Normal Mouth: Present: Moist Mucous Membranes Neck: Present: Normal Range of Motion Respiratory/Chest: Present: Clear to Auscultation, Good Air Exchange. No: Respiratory Distress, Accessory Muscle Use Cardiovascular: Present: Regular Rate and Rhythm, Normal S1, S2. No: Murmurs Abdomen: Present: Normal Bowel Sounds. No: Tenderness, Distention, Peritoneal Signs Back: Present: Normal Inspection Upper Extremity: Present: Normal Inspection. No: Cyanosis, Edema Lower Extremity: Present: Normal Inspection. No: Edema Neurological: Present: GCS=15, CN II-XII Intact, Speech Normal Skin: Present: Warm, Dry, Normal Color. No: Rashes Psychiatric: Present: Alert, Oriented x 3, Normal Insight, Normal Concentration Medical Decision Making ED Course and Treatment: 07/22/17 15:29 Patient's previous records reviewed. Patient was last admitted in March 2017, with cough, congestion, shortness of breath, and chest pain. Patient has been seen by apparel sales associate that time, had negative troponins, her chest pain was thought to be atypical. As per Dr. Townsend's notes, patient has a history of nonobstructive coronary artery disease. Impression: 72 year old female with elevated BP (150s), intermittent chest pain , and shortness of breath. Normal physical exam. Plan: -- EKG -- Chest X-ray -- Urinalysis -- Labs -- Aspirin -- Nitrostat -- Reassess and disposition Prior Visits: Notes and results from previous visits were reviewed. Patient was last seen in the emergency department on 03/30/2017 for shortness of breath. Patient was admitted. Progress Notes: EKG shows NSR at [address] elevations with no prior for comparison. Interpreted by me. 07/22/17 16:57 Chest xray interpreted by ED physician shows no pneumothorax, no cardiomegaly, no infiltrates dw Dr. Swanson, accepted obs to his service pt in no distress, aware of and agrees with plan - Lab Interpretations Lab Results: 07/22/17 15:54 07/22/17 15:54 Lab Results 07/22/17 16:15: Urine Color Yellow, Urine Appearance Clear, Urine pH 6.0, Ur Specific [place] 1.015, Urine Protein Negative, Urine Glucose (UA) Negative, Urine Ketones Negative, Urine Blood Moderate H, Urine Nitrate Negative, Urine Bilirubin Negative, Urine Urobilinogen 0.2, Ur Leukocyte Esterase Small H, Urine RBC 1 - 3, Urine WBC 5 - 10, Ur Epithelial Cells 1 - 3, Urine Bacteria Few 07/22/17 15:54: Sodium 142, Potassium 4.0, Chloride 102, Carbon Dioxide 26, Anion Gap 18, BUN 15, Creatinine 0.8, Est GFR ( Amer) > 60, Est GFR (Non- Af Amer) > 60, Random Glucose 201 H, Calcium 9.5, Total Bilirubin 0.7, AST 30, ALT 31, Alkaline Phosphatase 93, Lactate Dehydrogenase 471, Total Creatine Kinase 58, Troponin I < 0.01, Total Protein 7.7, Albumin 4.5, Globulin 3.2, Albumin/Globulin Ratio 1.4 07/22/17 15:54: PT 10.6, INR 0.98, APTT 28.0 07/22/17 15:54: WBC 9.2, RBC 4.81, Hgb 14.5, Hct 42.5, MCV 88.4, MCH 30.1, MCHC 34.1, RDW 14.1, Plt Count 252, MPV 9.5, Gran % 66.0, Lymph % (Auto) 28.3, [place] % (Auto) 4.6, Eos % (Auto) 0.8 L, Baso % (Auto) 0.3, Gran # 6.09, Lymph # 2.6, [place] # 0.4, Eos # 0.1, Baso # 0.03 I have reviewed the lab results: Yes - RAD Interpretation Radiology Orders: 07/22/17 15:46 CHEST PORTABLE [RAD] Stat - Medication Orders Current Medication Orders: Diazepam (Valium) 5 mg PO BID OLIVE PRN Reason: Protocol Discontinued Medications Aspirin (Aspirin Chewable) 324 mg PO STAT STA Stop: 07/22/17 15:46 Last Admin: 07/22/17 16:24 Dose: 324 mg Nitroglycerin (Nitrostat Sl Tab) 0.3 mg SL STAT STA Stop: 07/22/17 15:46 Last Admin: 07/22/17 16:24 Dose: 0.3 mg - Scribe Statement The provider has reviewed the documentation as recorded by the Flores Colin Provider Scribe Attestation: All medical record entries made by the Scribe were at my direction and personally dictated by me. I have reviewed the chart and agree that the record accurately reflects my personal performance of the history, physical exam, medical decision making, and the department course for this patient. I have also personally directed, reviewed, and agree with the discharge instructions and disposition. Disposition/Present on Arrival - Present on Arrival Any Indicators Present on Arrival: No History of DVT/PE: No History of Uncontrolled Diabetes: No Urinary Catheter: No History Surgical Site Infection Following: None - Disposition Have Diagnosis and Disposition been Completed?: Yes Diagnosis: Chest pain Disposition: HOSPITALIZED Disposition Time: 17:00 Patient Plan: Observation Patient Problems: Current Active Problems Problem Status Onset Chest pain Acute Condition: STABLE Discharge Instructions (ExitCare): Chest Pain (ED) Referrals: Prachi Monsivais MD [Primary Care Provider] - Follow up with primary
[2017-07-22 16:07] LABS: BASO # 0.03 K/mm3 (0.0-2.0); BASO % 0.3 % (0.0-3.0); EOS # 0.1 (0.0-0.7); EOS % 0.8 % (1.5-5.0); GRAN # 6.09 (1.4-6.5); HEMATOCRIT 42.5 % (36.0-48.0); LYMPH # 2.6 (1.2-3.4); LYMPH % 28.3 % (22.0-35.0); MEAN CELL VOLUME 88.4 fl (80.0-105.0); MEAN CORPUSCULAR HEMOGLOBIN 30.1 pg (25.0-35.0); MEAN CORPUSCULAR HGB CONC 34.1 g/dl (31.0-37.0); MEAN PLATELET VOLUME 9.5 fl (7.0-11.0); MONO # 0.4 (0.1-0.6); MONO % 4.6 % (1.0-6.0); RED CELL DISTRIBUTION WIDTH 14.1 % (11.5-14.5); WHITE BLOOD COUNT 9.2 10^3/ul (4.5-11.0)
[2017-07-22 16:18] LABS: ALB/GLOB RATIO 1.4 (1.1-1.8); ALKALINE PHOSPHATASE 93 U/L (38-133); ALT/SGPT 31 U/L (7-56); AST/SGOT 30 U/L (15-39); BILIRUBIN,TOTAL 0.7 mg/dL (0.2-1.3); BLOOD UREA NITROGEN 15 mg/dL (7-21); CALCIUM 9.5 mg/dL (8.4-10.5); CARBON DIOXIDE 26 mmol/L (21-33); CHLORIDE 102 mmol/L (98-107); GFR AFRICAN-AMERICAN > 60; GLUCOSE,RANDOM 201 mg/dL (70-110); INR 0.98 (0.93-1.08); SODIUM 142 mmol/L (132-148); TOTAL PROTEIN 7.7 g/dL (5.8-8.3)
[2017-07-22 16:27] LABS: URINE BILIRUBIN NEGATIVE (NEGATIVE); URINE BLOOD MODERATE (NEGATIVE); URINE GLUCOSE (UA) NEGATIVE (NEGATIVE); URINE KETONE NEGATIVE (NEGATIVE); URINE LEUKOCYTE ESTERASE SMALL Leu/uL (NEGATIVE); URINE PROTEIN NEGATIVE mg/dL (<30 mg/dL); URINE UROBILINOGEN 0.2 E.U./dL (<1 E.U./dL)
[2017-07-22 16:29] LABS: URINE APPEARANCE CLEAR (CLEAR); URINE COLOR YELLOW (YELLOW)
[2017-07-22 16:31] LABS: TROPONIN I < 0.01 ng/mL
[2017-07-22 16:34] LABS: URINE BACTERIA FEW (NEG)
--- NOTE | 2017-07-22 18:46 | RAD ---
HISTORY: cough COMPARISON: Comparison chest dated 03/30/2017 FINDINGS: LUNGS: Poor inspiration with low lung volumes, mild crowded bronchovascular markings and mild bibasilar atelectasis. Prominent right hilar region. This could be secondary to prominent right main pulmonary artery however hilar adenopathy or mass not excluded. . Recommend followup CT scan of the chest. PLEURA: No significant pleural effusion identified, no pneumothorax apparent. CARDIOVASCULAR: Normal. OSSEOUS STRUCTURES: No significant abnormalities. VISUALIZED UPPER ABDOMEN: Normal. OTHER FINDINGS: None. IMPRESSION: Poor inspiration with low lung volumes, mild crowded bronchovascular markings and mild bibasilar atelectasis. Prominent right hilar region which could be be secondary to prominent right main pulmonary artery however hilar adenopathy or mass not excluded. . Recommend followup CT scan of the chest. Note this report was placed in [facility] review folder for followup
[2017-07-23 08:07] VITALS: TEMP 97.9
[2017-07-23] MEDS ORDERED: Insulin Reg-LOW-Coverage SC SCH (11:30)
[2017-07-23 16:18] VITALS: BP 149/56; O2SAT 96
[2017-07-23 16:36] VITALS: PULSE 55; RESP 37
--- NOTE | 2017-07-23 20:05 | CARD ---
APPROVED REPORT EKG Measurement Heart [id number] ID [id number] <Conclusion> Normal sinus rhythm Normal ECG
--- NOTE | 2017-07-24 01:52 | CON ---
DATE: 07/23/2017 LOCATION: The patient in ICU 128, bed 1. REASON FOR CONSULTATION: Chest pain. HISTORY OF PRESENT ILLNESS: The patient is a 72-year-old female admitted with history that since last 5 days, day and night she has continuous chest pain on the anterior chest wall where she is mildly tender. She also complained of a back pain for which she was told to have arthritis. The patient had multiple admission in the past for chest pain, she had cardiac catheterization 4 time and each time showed nonobstructive coronary artery disease. PAST MEDICAL HISTORY: Significant for partial small bowel obstruction many years ago, possible surgery, degenerative joint disease, history of trauma, history of multiple time chest pain, which was most of time noncardiac, 4 time cardiac catheterization which was nonobstructive coronary artery disease, history of COPD, hypertension, hyperlipidemia, TIA, asthma, history of tobacco abuse in the past. PERSONAL HISTORY: She used to smoke, she says she had stopped now. Denies any drinking. Previous cardiac catheterization as mentioned, the patient had 4 time cardiac catheterization and nonobstructive coronary artery disease. ALLERGIES: THE PATIENT ALLERGIC TO QUITE A FEW THINGS INCLUDING FISH, SHELLFISH, TYLENOL, IODINE, MERCURY. REVIEW OF SYSTEMS: All the system reviewed, positive mentioned in the history. The patient walks with a cane at home and otherwise, she is mostly in a chair or in the bed because of back pain. She says she gets back pain when she walks and it limits her walking. PHYSICAL EXAMINATION VITAL SIGNS: Blood pressure 128/70, respirations 20, pulse 54. The patient is afebrile. HEENT: Head is normocephalic. Pupils normal. Conjunctivae normal. Nose and throat normal. NECK: JVP is low, carotids equal. Thorax, AP diameter normal. LUNGS: Clear. The patient had a mild tenderness on the area of the pain on the anterior chest wall and she says that that is the chest pain, which she is having from last 5 days, continuous and for which she came to the hospital. ABDOMEN: Soft. Nontender. No organomegaly. EXTREMITIES: No clubbing and no cyanosis. LABORATORY DATA: WBC 9.2, hemoglobin 14.5, hematocrit 42.5, platelet 252. Sodium 142, potassium 4.0, BUN 15, creatinine 0.8. Troponin x2 negative. Random glucose 201, AST and ALT is normal. Total protein and albumin is normal. Chest x-ray; poor inspiration, low lung volumes, prominence of the right hilar region, which could be right vein pulmonary artery. EKG showed regular sinus rhythm, small R in lead III and aVF. DIAGNOSES: Chest pain, musculoskeletal with tenderness on the anterior chest wall; back pain; arthritis; chronic obstructive pulmonary disease, hypertension, hyperlipidemia, history of tobacco abuse in the past. PLAN: To treat this chest pain symptomatically. The patient can be tried on Naprosyn or Motrin; otherwise she will continue the medications, which she was taking at home and she should to continue to follow as outpatient. Dulce Townsend MD
--- NOTE | 2017-07-24 07:31 | HP ---
CHIEF COMPLAINT AND HISTORY OF PRESENT ILLNESS: This is a 72-year-old female who is coming into the hospital complaining of chest pain. The patient also says that her blood pressure was elevated and was choking at home. She has history of cardiac cath in the past by Dr. Townsend. She has history of vertigo. She states she does have hypertension, but does not take any blood pressure medications. She only uses Valium for her hypertension. She says that she is having intermittent chest pain. Over the past few months she has been having shortness of breath. She has no complaints of any dizziness, no nausea, no vomiting, no abdominal pain, no back pain, no dysuria, frequency or nocturia. PAST MEDICAL HISTORY: 1. DJD. 2. Anxiety. 3. H. pylori. ALLERGIES: ACETAMINOPHEN, IODINE, MORPHINE, STEROIDS. SOCIAL HISTORY: She is single. She does smoke at times. FAMILY HISTORY: Noncontributory. PHYSICAL EXAMINATION: VITAL SIGNS: Temperature is 97.9, pulse of 52, blood pressure is 149/56, respirations 20 and O2 saturation is 97%. GENERAL: The patient lying in bed, uncomfortable, and in no acute distress. HEENT: Atraumatic and normocephalic. Anicteric sclerae. Moist mucosa. [place] conjunctivae. No oral lesions. NECK: No JVD, anterior and posterior adenopathy, thyromegaly, or bruits. CARDIOVASCULAR: S1 and S2 regular. No murmur, rubs, or gallop. LUNGS: Clear to auscultation bilaterally. No wheezes, rales, or rhonchi. ABDOMEN: Bowel sounds are positive. Soft, nontender and nondistended. No hepatosplenomegaly. No rebound and no guarding. EXTREMITIES: No cyanosis, clubbing, or edema. NEUROLOGIC: No facial asymmetry. Tongue is midline. No uvula deviation. Power is 5/5 upper extremity and lower extremity. Sensation intact in upper extremity and lower extremity. PSYCHIATRIC: She is awake, alert and oriented x3. No anxiety or depression. She has normal affect. GENITOURINARY: No CVA tenderness. VASCULAR: 2+ pulses in the carotid pulses and pedal pulses. SKIN: No erythema or nodules. SPINE: Shows normal curvature. EXTREMITIES: No Cyanosis and clubbing, no edema. LABORATORY DATA: Reviewed. White count 9.2. Troponin x2 has been negative. EKG shows sinus rhythm. QTC is 416, No ST-T changes. Chest x-ray done shows poor inspiration with low lung volumes. There are no signs of any infiltrates. ASSESSMENT: 1. Chest pain, atypical. 2. Hypertension. 3. Anxiety. PLAN: The patient is admitted to the hospital. Patient's EKG was normal. She has had cardiac cath in the past by Dr. Townsend. She was given nitroglycerine in the ER. The patient has her fingerstick done as well today, she does have elevated sugars, but does not wish to be on any medications, so we will hold her medications. She also has hypertension, but she did not wish to be on blood pressures medications. She was seen by Dr. Townsend and cleared to be discharged. I did advice the patient that she should be on blood pressure medications because of the risk of having complications, she states she does understand, but prefers to use herbal supplements to try help her blood pressure. She is on heart healthy diet. She was advised to return to the hospital if her symptoms worsen. Discharge home. She is going to be followup as an outpatient by Dr. Monsivais. Condition stable. Activities increase as tolerated. Angel Swanson MD
== END 2017-07-23 18:00 | disposition home or self-care (01) ==
LOC: ED 15:20 → ERH 17:00 → CCU 20:57
PROVIDERS: ADMIT Internal Medicine Nephrology; ATTEND Internal Medicine Nephrology
DX: R07.89 Other chest pain (principal); J44.9 Chronic obstructive pulmonary disease, unspecified; I10 Essential (primary) hypertension; I25.10 Atherosclerotic heart disease of native coronary artery without angina pectoris; R42 Dizziness and giddiness; E78.5 Hyperlipidemia, unspecified; M54.9 Dorsalgia, unspecified; F40.240 Claustrophobia; M19.90 Unspecified osteoarthritis, unspecified site; Z87.891 Personal history of nicotine dependence; Z90.710 Acquired absence of both cervix and uterus
CPT/HCPCS: 71010; 80053; 81001; 82550; 83615; 84484; 85025; 85610; 85730; 87081; 87086; 93005; 99285; G0378

== ENCOUNTER 2017-10-15 14:50 | Inpatient (IN) | payer MEDICARE, MEDICAID ==
--- NOTE | 2017-10-15 15:32 | ED PDOC ---
Arrival/HPI - General Chief Complaint: Chest Pain Time Seen by Provider: 10/15/17 15:09 - History of Present Illness Narrative History of Present Illness (Text): 72 y/o F c PMHx CAD, Cardiac cath x 4, vertigo, and COPD p/w chest pain x 3 days , constant, midsternal, like tightness, associated with headache, dyspnea, nausea, sweatiness. Patient denies leg swelling, fever, cough, vomiting. Past Medical History - Provider Review Nursing Documentation Reviewed: Yes - Infectious Disease Hx of Infectious Diseases: None - Tetanus Immunization Tetanus Immunization: Unknown - Cardiac Hx Cardiac Disorders: Yes Hx Hypertension: Yes - Pulmonary Hx Respiratory Disorders: Yes Hx Chronic Obstructive Pulmonary Disease (COPD): Yes - Neurological Hx Neurological Disorder: Yes Hx Vertigo: Yes - HEENT Hx HEENT Disorder: Yes Hx Cataracts: Yes (sx bilat 2012) Other/Comment: bilat eyelid surg for drooping 2013 - Renal Hx Renal Disorder: No - Endocrine/Metabolic Hx Hypothyroidism: Yes - Hematological/Oncological Hx Blood Disorders: No - Integumentary Hx Dermatological Disorder: No - Musculoskeletal/Rheumatological Hx Musculoskeletal Disorders: Yes Hx Arthritis: Yes Hx Degenerative Joint Disease: Yes Hx Falls: Yes - Gastrointestinal Hx Gastroesophageal Reflux: Yes - Genitourinary/Gynecological Hx Genitourinary Disorders: No - Psychiatric Hx Psychophysiologic Disorder: Yes Hx Anxiety: Yes Hx Panic Disorder: Yes Hx Substance Use: No Other/Comment: hx claustrophobia - Surgical History Hx Cardiac Catheterization: Yes Hx Hysterectomy: Yes Hx Orthopedic Surgery: Yes (R SHOULDER) Other/Comment: sm tumors left breast removed 24 yrs ago - Anesthesia Hx Anesthesia: Yes - Suicidal Assessment Feels Threatened In Home Enviroment: No Family/Social History - Physician Review Nursing Documentation Reviewed: Yes Family/Social History: No Known Family HX Smoking Status: Former Smoker Hx Alcohol Use: No Hx Substance Use: No Hx Substance Use Treatment: No Allergies/Home Meds Allergies/Adverse Reactions: Allergies acetaminophen [From Tylenol] Allergy (Verified 10/15/17 15:09) RASH FISH Allergy (Verified 10/15/17 15:09) RASH iodine Allergy (Verified 10/15/17 15:09) RASH mercury (elemental) Allergy (Verified 10/15/17 15:09) RASH shellfish derived Allergy (Verified 10/15/17 15:09) RASH steroid Allergy (Uncoded 10/15/17 15:09) RASH Home Medications: Home Meds Medication Instructions Recorded Confirmed diaZEpam [Valium] 5 mg PO BID 07/21/16 10/15/17 Review of Systems - Physician Review All systems were reviewed & negative as marked: Yes - Review of Systems Constitutional: absent: Fevers Gastrointestinal: absent: Vomiting Physical Exam - Physical Exam Narrative Physical Exam (Text): Constitutional: No acute distress. Head: Normocephalic. Atraumatic. Eyes: PERRL. ENT: Moist mucous membranes. Neck: Supple. Cardiovascular: Regular rate. Chest: No tenderness. Respiratory: No wheezing. GI: Soft. Nontender. Nondistended. Back: No CVA tenderness. Musculoskeletal: Mild swelling of lower extremities. Skin: No rash. Neurologic: Alert, no focal deficit. Vital Signs Temp Pulse Pulse Resp BP Pulse Ox 10/15/17 18:01 65 18 134/59 L 100 10/15/17 17:03 66 19 136/58 L 100 10/15/17 15:26 69 10/15/17 15:25 97.8 F 70 19 150/80 100 10/15/17 15:11 98.2 F 75 18 138/79 98 Medical Decision Making ED Course and Treatment: EKG NSR 65 bpm, no ST elevations, T wave inversions infeiror and lateral, new since previous. Aspirin administered. CXR IMPRESSION: No active pulmonary disease Dr. Monsivais accepts patient to her service with Dr. Lacey/Kristian on consultation. Patient requires admission with new EKG changes and elevated proBNP in setting of chest pain and dyspnea. - Lab Interpretations Lab Results: 10/15/17 16:50 10/15/17 17:34 Lab Results 10/15/17 17:34: Sodium 143, Potassium 4.2, Chloride 101, Carbon Dioxide 29, Anion Gap 16, BUN 11, Creatinine 0.7, Est GFR ( Amer) > 60, Est GFR (Non- Af Amer) > 60, Random Glucose 91, Calcium 9.8, Total Bilirubin 1.0, AST 23, ALT 34, Alkaline Phosphatase 85, Total Creatine Kinase 98, Troponin I 0.03 D, NT- Pro-B Natriuret Pep 3600 H, Total Protein 7.6, Albumin 4.4, Globulin 3.1, Albumin/Globulin Ratio 1.4 10/15/17 16:50: PT 11.2, INR 1.03, APTT 29.0 10/15/17 16:50: WBC 8.7, RBC 4.57, Hgb 13.7, Hct 40.9, MCV 89.5, MCH 30.0, MCHC 33.5, RDW 14.5, Plt Count 254, MPV 10.2, Gran % 56.6, Lymph % (Auto) 36.0 H, [place] % (Auto) 6.4 H, Eos % (Auto) 0.8 L, Baso % (Auto) 0.2, Gran # 4.94, Lymph # 3.1, [place] # 0.6, Eos # 0.1, Baso # 0.02 - RAD Interpretation Radiology Orders: 10/15/17 15:22 CHEST PORTABLE [RAD] Stat - Medication Orders Current Medication Orders: Discontinued Medications Aspirin (Aspirin) 325 mg PO STAT STA Stop: 10/15/17 15:23 Last Admin: 10/15/17 17:02 Dose: 325 mg Disposition/Present on Arrival - Present on Arrival Any Indicators Present on Arrival: No History of DVT/PE: No History of Uncontrolled Diabetes: No Urinary Catheter: No History of Decub. Ulcer: No History Surgical Site Infection Following: None - Disposition Have Diagnosis and Disposition been Completed?: Yes Diagnosis: Chest pain, Elevated brain natriuretic peptide (BNP) level, Acute electrocardiogram changes Disposition: HOSPITALIZED Disposition Time: 18:00 Patient Plan: Admission, Telemetry Condition: GUARDED Discharge Instructions (ExitCare): Chest Pain (ED) Referrals: Vanessa Ramon, [Primary Care Provider] - Follow up with primary Forms: [employer] ([place])
--- NOTE | 2017-10-15 16:04 | RAD ---
HISTORY: cp, dyspnea COMPARISON: 07/22/2017. FINDINGS: LUNGS: The lungs are well inflated and clear. PLEURA: No significant pleural effusion identified, no pneumothorax apparent. CARDIOVASCULAR: Normal. OSSEOUS STRUCTURES: No significant abnormalities. VISUALIZED UPPER ABDOMEN: Normal. OTHER FINDINGS: None. IMPRESSION: No active pulmonary disease.
[2017-10-15 17:07] LABS: BASO # 0.02 K/mm3 (0.0-2.0); BASO % 0.2 % (0.0-3.0); EOS # 0.1 (0.0-0.7); EOS % 0.8 % (1.5-5.0); GRAN # 4.94 (1.4-6.5); GRAN % 56.6 % (50.0-68.0); HEMATOCRIT 40.9 % (36.0-48.0); LYMPH # 3.1 (1.2-3.4); MEAN CELL VOLUME 89.5 fl (80.0-105.0); MEAN CORPUSCULAR HGB CONC 33.5 g/dl (31.0-37.0); MEAN PLATELET VOLUME 10.2 fl (7.0-11.0); MONO # 0.6 (0.1-0.6); MONO % 6.4 % (1.0-6.0); RED CELL DISTRIBUTION WIDTH 14.5 % (11.5-14.5); WHITE BLOOD COUNT 8.7 10^3/ul (4.5-11.0)
[2017-10-15 17:13] LABS: INR 1.03 (0.93-1.08)
[2017-10-15 17:52] LABS: ALB/GLOB RATIO 1.4 (1.1-1.8); ALKALINE PHOSPHATASE 85 U/L (38-126); ALT/SGPT 34 U/L (7-56); AST/SGOT 23 U/L (14-36); BLOOD UREA NITROGEN 11 mg/dL (7-21); CALCIUM 9.8 mg/dL (8.4-10.5); CARBON DIOXIDE 29 mmol/L (21-33); CHLORIDE 101 mmol/L (98-107); GFR AFRICAN-AMERICAN > 60; GLUCOSE,RANDOM 91 mg/dL (70-110); POTASSIUM 4.2 mmol/L (3.6-5.0); SODIUM 143 mmol/L (132-148); TOTAL PROTEIN 7.6 g/dL (5.8-8.3)
[2017-10-15 18:04] LABS: TROPONIN I 0.03 ng/mL
[2017-10-15 19:57] LABS: CHOLESTEROL 216 mg/dL (130-200)
--- NOTE | 2017-10-15 21:47 | CARD ---
APPROVED REPORT EKG Measurement Heart [id number] IA [id number] <Conclusion> Normal sinus rhythm Inferior infarct, age undetermined Cannot rule out Anterior infarct, age undetermined T wave abnormality, consider lateral ischemia Abnormal ECG
--- NOTE | 2017-10-15 21:48 | CT ---
EXAM: CT Head Without Intravenous Contrast CLINICAL HISTORY: 72 years old, female; Signs and symptoms; Dizziness TECHNIQUE: Axial computed tomography images of the head/brain without intravenous contrast. All CT scans at this facility use one or more dose reduction techniques, viz.: automated exposure control; ma/kV adjustment per patient size (including targeted exams where dose is matched to indication; i.e. head); or iterative reconstruction technique. COMPARISON: CT - HEAD W/O CONTRAST 2017-03-31 11:50 FINDINGS: Brain: No acute intracranial hemorrhage. Age-appropriate periventricular white matter disease. No edema. Ventricles: Age-appropriate ventriculomegaly. Bones: No acute displaced fracture. Sinuses: Unremarkable as visualized. No acute sinusitis. Mastoid air cells: Unremarkable as visualized. No mastoid effusion. IMPRESSION: No acute intracranial hemorrhage, or suspicious mass effect.
[2017-10-16] MEDS: Levalbuterol 1.25 MG/3 ML Inhal Soln UD IH SCH ×4 (01:48→19:40)
--- NOTE | 2017-10-16 01:55 | HP ---
HISTORY OF PRESENT ILLNESS: The patient is a 72-year-old female. She was seen in office today, was complaining of chest pain, shortness of breath, also having chest pressure intermittently for 3 days, complaining of left facial and left arm tingling, complaining of generalized weakness, complaining of not eating and drinking and feels very dehydrated. PAST MEDICAL HISTORY: She has significant past medical history for: 1. Degenerative disk disease. 2. History of partial gastrectomy. 3. History of partial small bowel obstruction. 4. Anxiety disorder. 5. Hypertension. 6. Borderline diabetes. ALLERGIES: SHE IS ALLERGIC TO ACETAMINOPHEN, FISH, IODINE, , AND STEROIDS. SOCIAL HISTORY: She is single, heavy smoker, and still actively smokes. No history of alcohol use. REVIEW OF SYSTEMS: Significant for generalized weakness, poor appetite, and epigastric discomfort. PHYSICAL EXAMINATION: GENERAL: The patient is awake, alert, oriented, and communicative. VITAL SIGNS: She is afebrile, pulse is 65, respirations are 18, and blood pressure is 134/59. LUNGS: Bilateral fair airflow. Few expiratory rhonchi posteriorly. HEART: S1 and S2 audible. ABDOMEN: Soft and nontender. Slight epigastric discomfort. No rebound or guarding. NEUROLOGIC: She is awake, alert, and oriented. No focal deficit. LABORATORY DATA: WBC 8.7, hemoglobin 13, hematocrit 40, and platelets 257. PT 11.2 and INR 1.03. Chemistry; sodium 143, potassium 4.2, chloride 101, CO2 of 29, BUN 11, creatinine 0.7, and blood sugar of 91. LFTs are within normal limits. BNP is 3600. ASSESSMENT: 1. Chest pain, rule out underlying coronary ischemia. 2. Chronic obstructive pulmonary disease. 3. Gastroesophageal reflux disease. 4. Anxiety disorder. 5. Degenerative disk disease. PLAN: The patient will be admitted on telemetry. We will monitor blood sugar. We will monitor her cardiac enzyme. Start her on aspirin. Start her on nebulizer treatment. Cardiology consult by Dr. Lacey has been requested. Prachi Monsivais MD
[2017-10-16 02:27] VITALS: BMI 31.7
[2017-10-16 07:06] LABS: ALB/GLOB RATIO 1.3 (1.1-1.8); ALKALINE PHOSPHATASE 67 U/L (38-126); ALT/SGPT 36 U/L (7-56); AST/SGOT 24 U/L (14-36); BILIRUBIN,TOTAL 0.9 mg/dL (0.2-1.3); BLOOD UREA NITROGEN 14 mg/dL (7-21); CALCIUM 9.1 mg/dL (8.4-10.5); CARBON DIOXIDE 30 mmol/L (21-33); CHLORIDE 105 mmol/L (98-107); GFR AFRICAN-AMERICAN > 60; GLUCOSE,RANDOM 107 mg/dL (70-110); POTASSIUM 3.7 mmol/L (3.6-5.0); SODIUM 142 mmol/L (132-148); TOTAL PROTEIN 6.7 g/dL (5.8-8.3)
[2017-10-16 07:10] LABS: FREE T4 0.91 ng/dL (0.78-2.19)
[2017-10-16 07:23] LABS: THYROID STIMULATING HORMONE 4.15 mIU/mL (0.46-4.68)
[2017-10-16 08:14] LABS: TROPONIN I 0.02 ng/mL
[2017-10-16] MEDS ORDERED: Aminophylline 25 mg/ml Inj ONE (11:53)
--- NOTE | 2017-10-16 14:32 | CON ---
DATE:10/16/2017 REASON FOR CONSULTATION: Chest pain, tingling sensation in upper extremity, neck, and the lower extremity, and shortness of breath. BRIEF CLINICAL HISTORY: This is a 72-year-old female possible transgender with history of cardiac catheterization multiple times, nonobstructive coronary artery disease, admitted, says that sharp tingling sensation in the left arm, left leg, and then she feels off and on some shortness of breath and vague type of chest pain. Denies any dyspnea on exertion. Denies any shortness of breath on exertion. It happened itself and is spontaneously low aggravating or relieving factor as of now. PAST MEDICAL HISTORY: Significant for partial small bowel obstruction many years ago, history of degenerative joint disease, history of trauma, history of multiple admissions with chest pain, status post cardiac catheterization four times, nonobstructive coronary artery disease, but there is fear of unknown that may be clogging artery in the brain or clogging artery in the chest, that is why came here, history of anxiety disorder, history of hypertension, and history of borderline diabetes. PAST SURGICAL HISTORY: History of partial gastrectomy, history of small bowel obstruction. SOCIAL HISTORY: Actively tobacco abuse half pack a day. Denies any history of alcohol drinking. PREVIOUS CARDIAC WORKUP: As follows, history of cardiac catheterization x4, nonobstructive coronary artery disease, last stress test on 07/22/2016, that shows normal myocardial perfusion study, ejection fraction 73% dated 07/22/2016. The patient has had also echocardiography on 07/22/2016 that showed ejection fraction 55% to 60%, mild aortic regurgitation, mild mitral regurgitation, mild tricuspid regurgitation, right ventricular systolic pressure 36, no pericardial effusion noted. CURRENT MEDICATIONS: The patient is taking at home aspirin, , diazepam, and Xopenex. REVIEW OF SYSTEMS: As per HPI. PHYSICAL EXAMINATION: VITAL SIGNS: Temperature afebrile, heart rate 72, and blood pressure 113/62. HEENT: PERRLA. Extraocular muscles intact. NECK: Supple. No carotid bruits or thyromegaly. CHEST: Clear to auscultation. HEART: S1 and S2 regular. ABDOMEN: Soft. EXTREMITIES: Clubbing and cyanosis negative. EKG shows normal sinus T-inversion II, III, aVF, V5, V6 when compared from the previous EKG, the T wave changes are new. LABORATORY DATA: As follows; WBC 8.7, hemoglobin 13.3, hematocrit 40.9, and platelet count 254. Chemistry shows sodium of 140, potassium of 3.7, chloride 105, carbon dioxide 30, anion gap of 11, BUN 14, and creatinine 0.8. Troponin 0.03 negative. IMPRESSION AND PLAN: Atypical chest pain, last stress test more than a year ago, but new EKG changes T-wave changes V3, V4, V5, lead II, III, aVF, history of obesity, history of nonobstructive coronary artery disease, status post cardiac catheterization multiple times, hypothyroidism, and active tobacco abuse. Given the multiple risk factors of coronary artery disease and abnormal EKG, I suggest repeat one troponin. If the troponin is negative, we will do stress and echo. Further recommendations after the stress test. Also, we will add TSH, lipid profile, and hemoglobin A1c. We will follow with you. We will keep n.p.o. Thank you Dr. Monsivais for the opportunity in taking care of the patient, Geneva Dunham. Dulce Lacey MD
--- NOTE | 2017-10-16 15:32 | CP.PCM.CON ---
<Joaquín Gregg - Last Filed: 10/16/17 20:41> History of Present Illness - History of Present Illness History of Present Illness: Neurology consult note for Dr. Saab's service - Vania Gregg PGY2 Reason for consult: Dizziness HPI: Patient is a 72 year-old female with past medical history of partial small bowel obstruction, partial gastrectomy, history of hpylori, severe degenerative disk disease, hypertension, chronic vertigo with prior vestibular treatment and meclizine use that presented to [facility] with complaints of chest pain. She reported that her chest pain has been intermittent in nature starting 3 days prior to presentation and associated with left facial and arm parasthesias. She also reported feeling fatigued, generalized weakness and having a poor appetite. She denied focal weakness, numbness, vision changes, hearing changes, loss of consciousness, fever, chills, cough, abdominal pain, nausea, vomiting. In the ED, a head CT was done which revealed no acute intracranial abnormalities. Neurology was consulted for evaluation of dizziness. Patient admits to having chronic dizziness that she describes as the room is spinning that is exacerbated by rapid head movements. 12point ROS as per HPI above, otherwise negative PMH: as stated above PSH: partial gastrectomy Allergies: acetaminophen, fish, iodine, mercury Family Hx: Non-contributory Social Hx: Extensive tobacco use, denies illicit drug and alcohol use Past Patient History - Infectious Disease Hx of Infectious Diseases: None - Tetanus Immunizations Tetanus Immunization: Unknown - Past Social History Smoking Status: Former Smoker - CARDIAC Hx Cardiac Disorders: Yes Hx Hypertension: Yes - PULMONARY Hx Respiratory Disorders: Yes Hx Chronic Obstructive Pulmonary Disease (COPD): Yes - NEUROLOGICAL Hx Neurological Disorder: Yes - HEENT Hx HEENT Problems: Yes Hx Cataracts: Yes (sx bilat 2012) Other/Comment: bilat eyelid surg for drooping 2013 - RENAL Hx Chronic Kidney Disease: No - ENDOCRINE/METABOLIC Hx Hypothyroidism: Yes - HEMATOLOGICAL/ONCOLOGICAL Hx Blood Disorders: No - INTEGUMENTARY Hx Dermatological Problems: No - MUSCULOSKELETAL/RHEUMATOLOGICAL Hx Falls: Yes - GASTROINTESTINAL Hx Gastroesophageal Reflux: Yes - GENITOURINARY/GYNECOLOGICAL Hx Genitourinary Disorders: No - PSYCHIATRIC Hx Psychophysiologic Disorder: Yes Hx Anxiety: Yes Hx Panic Symptoms: Yes Hx Substance Use: No Other/Comment: hx claustrophobia - SURGICAL HISTORY Hx Cardiac Catheterization: Yes Hx Hysterectomy: Yes Hx Orthopedic Surgery: Yes (R SHOULDER) Other/Comment: sm tumors left breast removed 24 yrs ago - ANESTHESIA Hx Anesthesia: Yes Meds Allergies/Adverse Reactions: Allergies Allergy/AdvReac Type Severity Reaction Status Date / Time acetaminophen [From Tylenol] Allergy RASH Verified 10/15/17 15:09 FISH Allergy RASH Verified 10/15/17 15:09 iodine Allergy RASH Verified 10/15/17 15:09 mercury (elemental) Allergy RASH Verified 10/15/17 15:09 shellfish derived Allergy RASH Verified 10/15/17 15:09 steroid Allergy RASH Uncoded 10/15/17 15:09 - Medications Medications: Current Medications Aspirin (Ecotrin) 81 mg PO DAILY [facility] Last Admin: 10/16/17 09:20 Dose: 81 mg Diazepam (Valium) 5 mg PO BID [facility] PRN Reason: Protocol Last Admin: 10/16/17 09:20 Dose: 5 mg Levalbuterol HCl (Xopenex) 1.25 mg IH [id number] [facility] Last Admin: 10/16/17 13:41 Dose: Not Given Pantoprazole Sodium (Protonix Inj) 40 mg IVP DAILY [facility] Last Admin: 10/16/17 09:21 Dose: 40 mg Physical Exam - Constitutional Appears: No Acute Distress - Head Exam Head Exam: ATRAUMATIC, NORMOCEPHALIC - Eye Exam Eye Exam: EOMI, PERRL - ENT Exam ENT Exam: Mucous Membranes Moist - Neck Exam Neck exam: Positive for: Normal Inspection - Respiratory Exam Respiratory Exam: absent: Rales, Rhonchi, Wheezes - Cardiovascular Exam Cardiovascular Exam: RRR, +S1, +S2. absent: Gallop, JVD, Rubs - GI/Abdominal Exam GI & Abdominal Exam: Soft. absent: Distended, Firm, Guarding, Rebound, Tenderness - Extremities Exam Extremities exam: Positive for: normal inspection. Negative for: tenderness - Neurological Exam Neurological exam: Alert, CN II-XII Intact, Oriented x3 Additional comments: awake, alert, oriented x3 EOMI PERRL CN2-12 grossly intact moves all extremities spontaneously sensory exam intact throughout no drift proprioception intact gait deferred - Psychiatric Exam Psychiatric exam: Normal Affect, Normal Mood - Skin Skin Exam: Dry, Intact, Normal Color, Warm Results - Vital Signs Recent Vital Signs: Last Vital Signs Temp 97.6 F 10/16/17 06:00 Pulse 74 10/16/17 06:00 Resp 20 10/16/17 06:00 BP 139/62 10/16/17 01:57 Pulse Ox 100 10/15/17 21:04 - Labs Result Diagrams: 10/15/17 16:50 10/16/17 05:35 Labs: Laboratory Results - last 24 hr 10/16/17 10/16/17 10/16/17 05:35 05:35 06:30 Sodium 142 Potassium 3.7 Chloride 105 Carbon Dioxide 30 Anion Gap 11 BUN 14 Creatinine 0.8 Est GFR ( Amer) > 60 Est GFR (Non-Af Amer) > 60 Random Glucose 107 Calcium 9.1 Total Bilirubin 0.9 AST 24 ALT 36 Alkaline Phosphatase 67 Lactate Dehydrogenase 436 Total Creatine Kinase 73 Troponin I 0.02 D Total Protein 6.7 Albumin 3.8 Globulin 2.9 Albumin/Globulin Ratio 1.3 Free T4 0.91 TSH 3rd Generation 4.15 Assessment & Plan - Assessment and Plan (Free Text) Plan: 72yo female with history of partial small bowel obstruction, partial gastrectomy , history of hpylori, severe degenerative disk disease, hypertension, chronic vertigo with prior vestibular treatment and meclizine use presents with c/o chest pain with associated parasthesias. Neurology consulted for evaluation of patients dizziness. -Etiology of dizziness attributed to acute on chronic peripheral vertigo which is exacerbated by sudden head movements -At this time recommend continue with valium 5mg PO BID in addition to meclizine 25mg PO TID for underlying vertigo -Recommend vestibular exercises with physical therapy as well as outpatient vestibular therapy -Recommend follow up with cardiology recommendations regarding workup for chest pain -Obtain orthostatic vital signs -Avoid drastic fluctuations in blood pressure -CT Head was reviewed which revealed no acute intracranial abnormalities Patient seen and case discussed/reviewed with attending, Dr. Saab - Date & Time Date: 10/16/17 Time: 15:39 <Johnny Saab - Last Filed: 10/18/17 18:31> Meds - Medications Medications: Current Medications Aspirin (Ecotrin) 81 mg PO DAILY [facility] Last Admin: 10/18/17 09:01 Dose: 81 mg Atorvastatin Calcium (Lipitor) 10 mg PO DIN [facility] Last Admin: 10/18/17 17:44 Dose: Not Given Diazepam (Valium) 5 mg PO 1000,2130 [facility] PRN Reason: Protocol Last Admin: 10/18/17 09:01 Dose: 5 mg Levalbuterol HCl (Xopenex) 1.25 mg IH [id number] [facility] Last Admin: 10/18/17 13:13 Dose: 1.25 mg Lisinopril (Zestril) 2.5 mg PO DAILY [facility] Last Admin: 10/18/17 09:00 Dose: 2.5 mg Metoprolol Tartrate (Lopressor) 25 mg PO BID [facility] Last Admin: 10/18/17 17:44 Dose: Not Given Pantoprazole Sodium (Protonix Inj) 40 mg IVP DAILY [facility] Last Admin: 10/18/17 09:00 Dose: 40 mg Results - Vital Signs Recent Vital Signs: Last Vital Signs Temp 97.5 F L 10/18/17 17:21 Pulse 65 10/18/17 17:21 Resp 19 10/18/17 17:21 BP 138/49 L 10/18/17 17:21 Pulse Ox 94 L 10/18/17 06:00 - Labs Result Diagrams: 10/15/17 16:50 10/16/17 05:35 Attending/Attestation - Attestation I have personally seen and examined this patient.: Yes I have fully participated in the care of the patient.: Yes I have reviewed all pertinent clinical information: Yes
--- NOTE | 2017-10-16 15:37 | CARD ---
APPROVED REPORT Protocol: LEXISCAN Test Type: Lexiscan Sestamibi Stress Test Attending Physician: Dr. Dulce Townsend Referring Physician: Dr. Prachi Monsivais Test Indications: Chest Pain Height:5 ft 1 in Weight:166lbs Medications: Aspirin, Valium, Protnix, Xopenex Medical History: 72 y/o female with a history of chest pain, shortness of breath, htn, diabetes, COPD, current smoker Target HR: 147 bpm Resting ECG: RSR. ST_T Changes. Resting Heart Rate: 68 bpm Resting Blood Pressure: 130/80mmHg Submaximum (85%): 125 bpm PROCEDURE Pharmacologic stress testing was performed using 0.4mg per 5ml of regadenoson given intravenously over 7-10 seconds. Reversal agent aminophyline 150 mg, given intravenously for Dyspnea. POST EXERCISE Reason for Termination: Protocol completed Target HR: No Max HR: 77 bpm 76% of Maximum Predicted HR: 147 bpm Exercise duration: 00:32 min:sec, 0 Stage Exercise capacity: 1.0METs Max Blood Pressure: 144/72mmHg Blood Pressure response to exercise: normal resting BP - appropriate response Heart Rate response to exercise: appropriate Chest Pain: No, none Angina index: 0 Arrhythmia: No, none ST Change: Yes, No Additional ST_T Changes. Deviation: 0 mm TEST SUMMARY [id number]. INFUSIONDOSE 100:[id number]/.0. [id number]/72.0. INTERPRETATION Stress EKG Conclusion: IV LEXISCAN NUCLEAR STRESS TEST NEGATIVE FOR CHEST PAIN AND NEGTIVE FOR ADDITIONAL ST-T CHANGES. NUCLEAR SCAN REPORT TO FOLLOW. Signed by Dulce Townsend Electronically Approved: 10/16/2017 12:43:58 EXAM: Myocardial Perfusion REST/STRESS Stress Test Type: Pharmacologic Imaging Protocol Rest Spect myocardial perfusion imaging was performed in supine position 45 minutes following the injection of 10.6 mCi of Tc-99 Myoview. At peak stress, the patient was injected intravenously with 30.7mCi of Tc-99 tetrofosmin after an infusion time of 0 minutes and 10 seconds. Gated Stress Spect was performed 60 minutes after intravenous Tc-99 Myoview injection. The images were gated to evaluate regional wall motion and calculate ventricular ejection fraction.Images were reconstructed using backfilter projection method in short horizontal and verticle long axis. Spect slices were generated. LV Perfusion The quality of the study is good. The left ventricle is within normal limits in size. The right ventricle is unremarkable. The lung uptake is normal. The distribution of tracer reveals an area of moderately to severely decreased perfusion involving most of inferior wall on the stress study. The remainder of the LV myocardium is unremarkable. The rest myocardial perfusion study shows no significant improvement of the defect. Wall Motion Gated wall motion study shows inferior hypokinesis of the left ventricle. LVEF = 43%. Conclusion 1. Abnormal SPECT myocardial perfusion study. 2. Fixed, inferior defect is suggestive of r previous myocardial injury/ infarct. 3. Mild LV function despite inferior hypokinesis. 4. In comparison with the last study of 07/22/2016, the defect appears new.
[2017-10-17] MEDS: Levalbuterol 1.25 MG/3 ML Inhal Soln UD IH SCH ×4 (01:22→21:06)
--- NOTE | 2017-10-17 12:50 | PN ---
DATE: SUBJECTIVE: The patient is 72 years old, seen and examined, complained of chest discomfort, epigastric discomfort. She states she does not feel right, has difficulty walking, complaining of tremor and feeling anxious and palpitation at times. PHYSICAL EXAMINATION: VITAL SIGNS: She is afebrile, pulse 62, respirations 20, blood pressure 139/81. LUNGS: Bilateral few expiratory rhonchi, occasional. HEART: S1 and S2 audible. ABDOMEN: Soft, obese, nontender. Slight epigastric discomfort. No rebound, guarding. NEUROLOGICAL: The patient is awake, alert, oriented, communicative. LABORATORY DATA: WBC is 8.7, hemoglobin 13.7, hematocrit 40.9, platelet of 254. The patient had stress test done yesterday that shows fixed inferior defect suggestive of previous myocardial injury and mild function. Mild LV function with anterior hypokinesia. In comparison with last study, the defect appears new. ASSESSMENT: 1. Chest pain. Questionable ischemia. Abnormal stress test. 2. Generalized weakness. 3. Anxiety disorder. 4. Peptic ulcer disease. 5. History of Helicobacter pylori. 6. Chronic obstructive pulmonary disease. PLAN: The patient is currently on aspirin, Ativan daily. She is on Protonix. She is getting nebulizer treatment. Awaiting carotid Doppler. Discussed with Dr. Townsend. There is questionable plan for cardiac cath. Awaiting physical therapy evaluation. We will followup this patient in the a.m. Prachi Monsivais MD
--- NOTE | 2017-10-17 15:03 | PN ---
DATE: 10/17/2017 LOCATION: The patient is in room 271, bed 2. REASON FOR CONSULTATION: Chest pain, tingling sensation in the upper extremity, neck, and lower extremity and shortness of breath. SUBJECTIVE: The patient still complains of numbness, tingling, chest pain, and upper extremity and lower extremity. The patient lying flat without any respiratory distress. No palpitations. PHYSICAL EXAMINATION: VITAL SIGNS: Blood pressure 126/72, respirations 19, pulse 55, and temperature 98.3. HEENT: Head is normocephalic. Eyes; pupils are normal. Conjunctivae normal. Nose and throat normal. NECK: JVP low. Carotid equal. THORAX: AP diameter normal. LUNGS: Clear. CARDIOVASCULAR: S1 and S2 normal. ABDOMEN: Soft and nontender. No organomegaly. Bowel sounds are normal. EXTREMITIES: No clubbing. No cyanosis. LABORATORY DATA: WBC 8.7, hemoglobin 13.7, hematocrit 40.9, and platelets 254. Sodium 142, potassium 3.7, BUN 14, and creatinine 0.8. Troponin x2 negative. Cholesterol 216, LDL 145, and triglycerides 159. TSH normal. The patient had stress test on 10/16/2017, which showed fixed defect in the inferior wall and LV ejection fraction of 43%. DIAGNOSES: Atypical chest pain and numbness, left ventricular dysfunction, hyperlipidemia, and active smoker. PLAN: The patient had cardiac catheterization, previously it was nonobstructive coronary artery disease. Present stress test shows fixed defect and slightly decreased LV ejection fraction. We will put the patient on Lopressor 25 b.i.d. and lisinopril 2.5 daily. We will add aspirin 81 mg p.o. daily. We will also give Lipitor 10 mg daily and advised the patient to stop smoking. We will also order MUGA scan to evaluate LV ejection fraction. We will follow with you. Dulce Townsend MD
[2017-10-18] MEDS: Levalbuterol 1.25 MG/3 ML Inhal Soln UD IH SCH ×4 (02:57→19:47)
--- NOTE | 2017-10-18 10:23 | PN ---
DATE: 10/18/2017 SUBJECTIVE: The patient has no complaints of any chest pain or shortness of breath. No headaches or dizziness. PHYSICAL EXAMINATION: VITAL SIGNS: Temperature is 98.2, pulse is 65, blood pressure is 119/57, and respirations are 20. GENERAL: The patient is lying in bed, flat, comfortable. HEENT: No oral lesion. Anicteric sclerae. Moist mucosa. NECK: No JVD, adenopathy, or thyromegaly. CARDIOVASCULAR: S1 and S2, regular. No murmurs, rubs, or gallops. LUNGS: Clear to auscultation bilaterally. No wheeze, rales, or rhonchi. ABDOMEN: Bowel sounds are positive, soft, nontender and nondistended. EXTREMITIES: No cyanosis, clubbing or edema. LABORATORY DATA: Creatinine is 0.8. White count of 8.7 and hemoglobin of 13.7. Stress test done. ASSESSMENT: 1. Chest pain. 2. Anxiety disorder. 3. Peptic ulcer disease. 4. Chronic obstructive pulmonary disease. 5. Hypertension. PLAN: The patient is currently comfortable. She is on her Lipitor for dyslipidemia. She is on metoprolol and aspirin. She had a stress test done that I reviewed, it was abnormal. I spoke to Dr. Lacey. No intervention is planned. The patient is on Valium for anxiety. She has carotid Dopplers that are pending. Angel Swanson MD
--- NOTE | 2017-10-18 10:44 | CARD ---
APPROVED REPORT EXAM: Two-dimensional and M-mode echocardiogram with Doppler and color Doppler. INDICATION Chest Pain 2D DIMENSIONS Left Atrium (2D)4.0 (1.6-4.0cm)IVSd0.9 (0.7-1.1cm) LVDd4.8 (3.9-5.9cm)PWd1.0 (0.7-1.1cm) LVDs3.8 (2.5-4.0cm)FS (%) 20.4 % LVEF (%)41.9 (>50%) M-Mode DIMENSIONS Aortic Root3.40 (2.2-3.7cm)Aortic Cusp Exc.1.70 (1.5-2.0cm) Aortic Valve AoV Peak Eqkhvvji980.0cm/Gibran Peak GR.11mmHgAI P 1/2 Lhpz773ia Mitral Valve MV E Jxwztnft44.5cm/sMV A Rkznslje531.0cm/sE/A ratio0.6 TDI Lateral E' Peak V7.99cm/sMedial E' Peak V4.97cm/sE/Lateral E'9.9 E/Medial E'16.0 Pulmonary Valve PV Peak Ukzssqpj93.6cm/sPV Peak Grad.2mmHg Tricuspid Valve TR Peak Wfciguzg146rp/sRAP GBOZSMXL99fzGuKT Peak Gr.29mmHg [id number] LEFT VENTRICLE The left ventricle is normal size. There is normal left ventricular wall thickness. The systolic function is mildly impaired.EF-40-45% There is mild hypokinesis in the apical anterior wall. Transmitral Doppler flow pattern is Grade III-reversible restrictive diastolic dysfunction. No left ventricle thrombus noted on this study. There is no ventricular septal defect visualized. There is no left ventricular aneurysm. There is no mass noted in the left ventricle. RIGHT VENTRICLE The right ventricle is normal size. There is normal right ventricular wall thickness. The right ventricular systolic function is normal. ATRIA The left atrium is borderline dilated. The right atrium size is normal. The interatrial septum is intact with no evidence for an atrial septal defect. AORTIC VALVE The aortic valve is thickened but opens well. There is mild to moderate aortic regurgitation. There is no aortic valvular stenosis. There is no aortic valvular vegetation. MITRAL VALVE The mitral valve is thickened but opens well. Mitral regurgitation is mild. There is no mitral valve stenosis. There is no evidence of mitral valve prolapse. TRICUSPID VALVE The tricuspid valve leaflets are thickened , but open well. There is mild tricuspid regurgitation.RVSP_39 mmof hg. There is no tricuspid valve stenosis. There is no tricuspid valve prolapse or vegetation. PULMONIC VALVE The pulmonary valve is normal in structure. There is trace pulmonic valvular regurgitation. There is no pulmonic valvular stenosis. GREAT VESSELS The aortic root is normal in size. The ascending aorta is normal in size. The IVC is normal in size and collapses >50% with inspiration. PERICARDIAL EFFUSION There is no pleural effusion. There is no pericardial effusion. <Conclusion> The left ventricle is normal size. There is normal left ventricular wall thickness. The systolic function is mildly impaired.EF-40-45% There is mild to moderate aortic regurgitation. Mitral regurgitation is mild. There is mild tricuspid regurgitation.RVSP_39 mmof hg.
--- NOTE | 2017-10-18 13:19 | PN ---
DATE: 10/18/2017 REASON FOR CONSULTATION: Chest pain, tingling sensation in the upper extremity, neck and the lower extremity, and shortness of breath. SUBJECTIVE: The patient denies any chest pain, but complained of headache and tingling sensation in the leg. OBJECTIVE/PHYSICAL EXAMINATION: GENERAL: Not in apparent distress. Lying flat in the bed. VITAL SIGNS: Temperature is afebrile, heart rate is 65, and blood pressure is 119/57. HEENT: PERRLA. Extraocular muscles are intact. NECK: Supple. No carotid bruits or thyromegaly. CHEST: Clear to auscultation. HEART: S1 and S2 regular. ABDOMEN: Soft. EXTREMITIES: Clubbing and cyanosis negative. LABORATORY DATA: Blood workup as follows: WBC of 8.0, hemoglobin of 13.0, hematocrit of 40.9 and platelet count of 454. Chemistry shows sodium of 140, potassium of 3.3, chloride of 105, carbon dioxide of 30, anion gap of 11, BUN of 40, and creatinine of 0.5. Triglycerides of 159, cholesterol of 216, LDL of 145, and HDL of 50. Troponins remains negative. Stress test showed abnormal myocardial perfusion study, fixed defect, no reversible ischemia, and ejection fraction 43% when compared from 07/22/2013, stress test fixed defect is new. ASSESSMENT: Atypical chest pain, numbness, left ventricular dysfunction, and active tobacco abuse. The patient had cardiac catheterization four times, nonobstructive coronary artery disease, at present she has fixed defect, no reversible ischemia. Last cath, the patient had problem and complained of groin pain for more than six months. RECOMMENDATIONS: We will try to treat the patient medically. No chest pain and no ischemia, on the stress test. We will review the echo once available. Continue Lopressor and continue lisinopril. We will add aspirin and Lipitor. MUGA scan is ordered by Dr. Townsend who already reviewed the Echo. Dulce Lacey MD
[2017-10-19] MEDS: Levalbuterol 1.25 MG/3 ML Inhal Soln UD IH SCH ×3 (02:20→14:11)
[2017-10-19] MEDS ORDERED: Pantoprazole 40 mg EC Tab PO SCH (06:00)
[2017-10-19 06:21] VITALS: RESP 20; O2SAT 95
--- NOTE | 2017-10-19 09:30 | US ---
PROCEDURE: Bilateral carotid artery duplex ultrasound HISTORY: Carotid stenosis syncope PHYSICIAN(S): Kristopher Steel MD. TECHNIQUE: Duplex sonography and color-flow Doppler were used to evaluate the carotid bifurcations and limited segments of the vertebral arteries bilaterally. The exam is limited by tortuous vessels FINDINGS: There is mild smooth heterogeneous plaque noted at the carotid bifurcations bilaterally. The peak systolic velocity in the proximal right internal carotid artery is 76 cm/sec. This corresponds to a 20 to 39% proximal right ICA stenosis. Normal systolic velocities are noted in the proximal right external carotid artery. There is antegrade flow in the right vertebral artery. The peak systolic velocity in the proximal left internal carotid artery is 50 cm/sec. This corresponds to a 20 to 39% proximal left ICA stenosis. Normal systolic velocities are noted in the proximal left external carotid artery. There is antegrade flow in the dominant left vertebral artery. IMPRESSION: 1. Bilateral 20-39% proximal ICA stenoses. 2. Antegrade flow in both vertebral arteries.
--- NOTE | 2017-10-19 09:35 | PN ---
DATE: 10/16/2017 SUBJECTIVE: The patient is a 72-year-old seen and examined while she was having stress test done. Still complain of shortness of breath and chest pressure, also complain of epigastric discomfort, complain of decreased appetite. PHYSICAL EXAMINATION VITAL SIGNS: She is afebrile, pulse 74, respiration 20 and blood pressure 134/59. LUNGS: Bilateral good fair airflow. No rhonchi or crackle. HEART: S1 and S2 is audible. ABDOMEN: Soft, obese and nontender. No rebound. No guarding. NEUROLOGIC: She is awake, alert and oriented, communicative. LABORATORY DATA: BNP 3600, 2 sets of troponin is negative. Total cholesterol is 216. TSH 4.15. Echocardiogram is pending. CT scan of the abdomen and pelvis, no acute intracranial hemorrhage. Carotid Doppler is pending. ASSESSMENT: 1. Chest pain with shortness of breath. Rule out underlying ischemia. 2. Active smoker with chronic obstructive pulmonary disease. 3. Degenerative disk disease. 4. Hypertension. 5. Dizziness versus vertigo. 6. Chronic obstructive pulmonary disease. 7. Hypothyroidism currently not on any medications. PLAN: I will request Neuro evaluation. We will follow up carotid Doppler. Out of bed to chair. We will followup this patient in a.m. If her workup is negative, she will be discharged home in a.m. Prachi Monsivais MD
[2017-10-19 12:15] VITALS: BP 119/58; PULSE 58; TEMP 98.4
--- NOTE | 2017-10-19 15:50 | CARD ---
APPROVED REPORT INDICATION EKG CHANGES,EVALUATE LV EJECTION FRACTION PROCEDURE The above named patient recieved 21.4 millicuries of Tc99m tagged red blood cells intravenously. After achieving equilibrium, gated imaging of 16/frame/cycle was performed utillizing Gamma camera interfaced with a digital computer and gated device. Gated imaging was then performed in the left anterior oblique, anterior, and the left lateral projections. Findings Left Ventricle: The quality of the study is good. The left ventricle is mildly enlarged. The right ventricle is normal in size. Wall motion study shows inferoapical hypokinesis of the left ventricle. RV wall motion is normal. The right atrium is dynamic. The remainder of the study is unremarkable. Impressions Borderline normal LV function despite inferoapical hypokinesis. LVEF = 50%. Normal RV wall motion.
--- NOTE | 2017-10-19 19:30 | PN ---
DATE: 10/19/2017 REASON FOR CONSULTATION: Followup chest pain, tingling sensation in the upper extremities, fixed defect on stress test. SUBJECTIVE: The patient denies any chest pain, shortness of breath or any palpitation. PHYSICAL EXAMINATION VITAL SIGNS: As follows: Temperature afebrile, heart rate 58 and blood pressure 119/58. HEENT: PERRLA intact. NECK: Supple. No carotid bruits or thyromegaly. CHEST: Clear to auscultation. HEART: S1 and S2 regular. ABDOMEN: Soft. EXTREMITIES: Clubbing and cyanosis negative. LABORATORY DATA: Blood workup as follows: WBC 8.3, hemoglobin 13.7, hematocrit 40.9 and platelet count 254. Chemistry shows sodium 140, potassium 3.0, chloride 105, carbon dioxide of 30, anion gap of 11, BUN 40 and creatinine 0.8. Troponin remains 0.02 negative. The patient underwent MUGA scan today that shows ejection fraction of 50%. History of cardiac catheterization reports x4, nonobstructive coronary artery disease. RECOMMENDATIONS: Continue Lipitor, lisinopril, aspirin. We will follow with you. Thank you Dr. Monsivais for the opportunity in taking care of Geneva Dunham. Dulce Lacey MD
--- NOTE | 2017-10-20 03:34 | DS ---
HISTORY OF PRESENT ILLNESS: The patient is a 72-year-old seen and examined, still complain of tingling, complain of back pain, complain of neck pain, still has epigastric discomfort, heartburn, and hurts taking deep breath. PHYSICAL EXAMINATION: VITAL SIGNS: She is afebrile, pulse 68, respirations 20, and blood pressure 119/58. LUNGS: Bilateral few expiratory rhonchi. HEART: S1 and S2 audible. ABDOMEN: Soft, obese, and nontender. No rebound. No guarding. NEUROLOGIC: She is awake, alert, oriented, and able to communicate. Moves all extremities. No focal deficits. LABORATORY DATA: Chemistry: Blood sugar is borderline high total of 216, HDL is 60, and LDL is 145. She had stress test done that is essentially normal as compared to previous. There are no ischemic changes. Her echocardiogram shows LV dysfunction with ejection fraction of 40% to 45%. She had MUGA scan done today that shows borderline normal LVH, despite inferoapical hypokinesia with ejection fraction of 50%. ASSESSMENT: 1. Noncardiac chest pain. 2. Hypertension. 3. Cervical degenerative disk disease. 4. Borderline hyperglycemia. PLAN: She is being discharged home on atorvastatin 10 mg daily, metoprolol 50 mg at bedtime, she should continue Protonix 40 daily, and aspirin coated 81 mg daily. She will follow up with Dr. Johnny Saab as an outpatient, myself, and Dr. Townsend as an outpatient. Prachi Monsivais MD
== END 2017-10-19 15:58 | disposition home or self-care (01) | DRG 313 ==
LOC: ED 14:50 → ERH 18:35 → INTOOBSV 18:35 → ERH 20:49 → 2RSO 21:34 → OBSVTOIN 10-17 11:14
PROVIDERS: ADMIT Internal Medicine; ATTEND Internal Medicine
PROC: 3E0F7GC Introduction of Other Therapeutic Substance into Respiratory Tract, Via Natural or Artificial Opening (ICD-10-PCS; principal; 2017-10-16)
DX: R07.89 Other chest pain (principal); J44.9 Chronic obstructive pulmonary disease, unspecified; I25.10 Atherosclerotic heart disease of native coronary artery without angina pectoris; I08.3 Combined rheumatic disorders of mitral, aortic and tricuspid valves; I10 Essential (primary) hypertension; M50.30 Other cervical disc degeneration, unspecified cervical region; K21.9 Gastro-esophageal reflux disease without esophagitis; F17.210 Nicotine dependence, cigarettes, uncomplicated; E03.9 Hypothyroidism, unspecified; R53.1 Weakness; E78.5 Hyperlipidemia, unspecified; R73.03 Prediabetes; K27.9 Peptic ulcer, site unspecified, unspecified as acute or chronic, without hemorrhage or perforation; E66.9 Obesity, unspecified; Z68.31 Body mass index [BMI] 31.0-31.9, adult; F40.240 Claustrophobia; Z90.3 Acquired absence of stomach [part of]; Z90.710 Acquired absence of both cervix and uterus

== ENCOUNTER 2018-06-14 14:30 | Emergency (ER) | payer MEDICARE, MEDICAID ==
[2018-06-14 14:43] VITALS: BMI 32.1
[2018-06-14 14:46] VITALS: TEMP 98; O2SAT 98
--- NOTE | 2018-06-14 15:22 | ED PDOC ---
Arrival/HPI - General Time Seen by Provider: 06/14/18 15:14 Historian: Patient - History of Present Illness Narrative History of Present Illness (Text): 06/14/18 15:18 72 year old female, with past medical history of CAD, chest pain, Cardiac cath x 4, vertigo, and COPD on 2L home O2, presents to the emergency department complaining of chest pain associated with shortness of breath since this morning. Patient states left sided intermittent chest pain radiating to his left arm and left arm tingling since onset. Patient informs worsening symptoms presenting to the emergency department for medical evaluation. Patient denies any fever, chills, nausea, vomiting, diarrhea, abdominal pain or any other complaints. Patient admits to smoking 1 pack of cigarettes daily. PMD: Dr. Monsivais Time/Duration: 1-3 hours Symptom Onset: Gradual Symptom Course: Unchanged Quality: Aching Activities at Onset: Light Context: Home Past Medical History - Provider Review Nursing Documentation Reviewed: Yes - Infectious Disease Hx of Infectious Diseases: None - Tetanus Immunization Tetanus Immunization: Unknown - Cardiac Hx Hypertension: Yes - Pulmonary Hx Respiratory Disorders: Yes Hx Chronic Obstructive Pulmonary Disease (COPD): Yes - Neurological Hx Neurological Disorder: No - HEENT Hx HEENT Disorder: Yes Hx Cataracts: Yes (sx bilat 2012) Other/Comment: bilat eyelid surg for drooping 2013 - Renal Hx Renal Disorder: No - Endocrine/Metabolic Hx Hypothyroidism: Yes - Hematological/Oncological Hx Blood Disorders: No - Integumentary Hx Dermatological Disorder: No - Musculoskeletal/Rheumatological Hx Arthritis: Yes (degenerative disk dse) - Gastrointestinal Hx Gastroesophageal Reflux: Yes - Genitourinary/Gynecological Hx Genitourinary Disorders: No - Psychiatric Hx Psychophysiologic Disorder: Yes Hx Anxiety: Yes Hx Panic Disorder: Yes Hx Substance Use: No Other/Comment: hx claustrophobia - Surgical History Hx Orthopedic Surgery: Yes (Right shoulder ligament repair) - Anesthesia Hx Anesthesia: Yes - Suicidal Assessment Feels Threatened In Home Enviroment: No Family/Social History - Physician Review Nursing Documentation Reviewed: Yes Family/Social History: No Known Family HX Smoking Status: Former Smoker Hx Alcohol Use: No Hx Substance Use: No Hx Substance Use Treatment: No Allergies/Home Meds Allergies/Adverse Reactions: Allergies acetaminophen [From Tylenol] Allergy (Verified 10/15/17 15:09) RASH FISH Allergy (Verified 10/15/17 15:09) RASH iodine Allergy (Verified 10/15/17 15:09) RASH mercury (elemental) Allergy (Verified 10/15/17 15:09) RASH shellfish derived Allergy (Verified 10/15/17 15:09) RASH steroid Allergy (Uncoded 10/15/17 15:09) RASH Home Medications: Home Meds Medication Instructions Recorded Confirmed diaZEpam [Valium] 5 mg PO BID 07/21/16 10/15/17 Review of Systems - Physician Review All systems were reviewed & negative as marked: Yes - Review of Systems Constitutional: absent: Fevers Respiratory: SOB Cardiovascular: Chest Pain Gastrointestinal: absent: Abdominal Pain, Diarrhea, Nausea, Vomiting Musculoskeletal: Other (left arm tingling) Physical Exam Vital Signs Reviewed: Yes Vital Signs Temp Pulse Pulse Resp BP Pulse Ox 06/14/18 18:25 58 L 16 143/94 H 98 06/14/18 16:05 79 18 152/71 H 98 06/14/18 15:25 72 06/14/18 14:44 98.0 F 85 18 154/76 H 98 Temperature: Afebrile Blood Pressure: Normal Pulse: Regular Respiratory Rate: Normal Appearance: Positive for: Well-Appearing, Non-Toxic, Comfortable Pain Distress: None Mental Status: Positive for: Alert and Oriented X 3 - Systems Exam Head: Present: Atraumatic, Normocephalic Pupils: Present: PERRL Extroacular Muscles: Present: EOMI Conjunctiva: Present: Normal Neck: Present: Normal Range of Motion Respiratory/Chest: Present: Good Air Exchange, Decreased Breath Sounds ( bilaterally). No: Respiratory Distress, Accessory Muscle Use Cardiovascular: Present: Regular Rate and Rhythm, Normal S1, S2. No: Murmurs Abdomen: No: Tenderness, Distention, Peritoneal Signs Back: Present: Normal Inspection Upper Extremity: Present: Normal Inspection. No: Cyanosis, Edema Lower Extremity: Present: Normal Inspection. No: Edema Neurological: Present: GCS=15, CN II-XII Intact, Speech Normal Skin: Present: Warm, Dry, Normal Color. No: Rashes Psychiatric: Present: Alert, Oriented x 3, Normal Insight, Normal Concentration Medical Decision Making ED Course and Treatment: 06/14/18 15:23 Impression: 73 year old female presents to the emergency department for chest pain associated with shortness of breath. Plan: -- EKG -- Chest X-Ray -- Labs -- Urinalysis -- Reassess and disposition Prior Visits: Notes and results from previous visits were reviewed. Progress Notes: 06/14/18 17:25 Chest X-ray reviewed by radiologist, shows no active disease. 06/14/18 18:[address] Monsivais, who is aware and agrees with Emergency department management plan to discharge patient home with instructions to follow PMD in her outpatient office. - Lab Interpretations Lab Results: 06/14/18 16:15 06/14/18 17:00 Lab Results 06/14/18 17:00: Sodium 141, Potassium 4.6, Chloride 103, Carbon Dioxide 28, Anion Gap 15, BUN 12, Creatinine 0.7, Est GFR ( Amer) > 60, Est GFR (Non- Af Amer) > 60, Random Glucose 103, Calcium 9.4, Magnesium 2.1, Total Bilirubin 0.7, AST 24, ALT 30, Alkaline Phosphatase 87, Lactate Dehydrogenase 432, Total Creatine Kinase 40, Troponin I < 0.01 D, Total Protein 7.6, Albumin 4.3, Globulin 3.2, Albumin/Globulin Ratio 1.4 06/14/18 16:15: WBC 8.9, RBC 5.00, Hgb 14.7, Hct 43.0, MCV 86.0 D, MCH 29.4, MCHC 34.2, RDW 15.1 H, Plt Count 260, MPV 10.4, Gran % 70.4 H, Lymph % (Auto) 22.9, [place] % (Auto) 5.6, Eos % (Auto) 0.9 L, Baso % (Auto) 0.2, Gran # 6.27, Lymph # (Auto) 2.0, [place] # (Auto) 0.5, Eos # (Auto) 0.1, Baso # (Auto) 0.02 - RAD Interpretation Radiology Orders: 06/14/18 15:24 CHEST PORTABLE [RAD] Stat Web Designer Developer: Radiologist - EKG Interpretation EKG Interpretation (Text): 14:42- NSR rate 72, normal axis, normal intervals, TWI in leads III, aVF, V6 Interpreted by ED Physician: Yes Type: 12 lead EKG - Scribe Statement The provider has reviewed the documentation as recorded by the Scribe Tasfia Edda. All medical record entries made by the Natashaibe were at my direction and personally dictated by me. I have reviewed the chart and agree that the record accurately reflects my personal performance of the history, physical exam, medical decision making, and the department course for this patient. I have also personally directed, reviewed, and agree with the discharge instructions and disposition. Disposition/Present on Arrival - Present on Arrival Any Indicators Present on Arrival: No History of DVT/PE: No History of Uncontrolled Diabetes: No Urinary Catheter: No History Surgical Site Infection Following: None - Disposition Have Diagnosis and Disposition been Completed?: Yes Diagnosis: Chest pain Disposition: HOME/ ROUTINE Disposition Time: 19:02 Condition: GOOD Discharge Instructions (ExitCare): Chest Pain (ED) Additional Instructions: ESTELLE MUNGUIA, thank you for letting us take care of you today. Your provider was Jane Salgado MD and you were treated for CHEST PAIN. The emergency medical care you received today was directed at your acute symptoms. If you were prescribed any medication, please fill it and take as directed. It may take several days for your symptoms to resolve. Return to the Emergency Department if your symptoms worsen, do not improve, or if you have any other problems. Please contact your doctor or call one of the physicians/clinics you have been referred to that are listed on the Patient Visit Information form that is included in your discharge packet. Bring any paperwork you were given at discharge with you along with any medications you are taking to your follow up visit. Our treatment cannot replace ongoing medical care by a primary care provider outside of the emergency department. Thank you for allowing the [facility] team to be part of your care today. If you had an X-Ray or CT scan: A Radiologist will review the ED reading if any change in treatment is needed we will contact you. If you had a blood, urine, or wound culture: It will take several days for the results, if any change in treatment is needed we will contact you. If you had an STI test: It will take 48 hours for the results. Please call after 1 week if you have not heard back. Referrals: Prachi Monsivais MD [Primary Care Provider] - Follow up with primary Forms: [employer] (Montenegrin)
--- NOTE | 2018-06-14 16:13 | RAD ---
Date of service: 06/14/2018 HISTORY: chest pain COMPARISON: 10/15/2017 FINDINGS: LUNGS: No active pulmonary disease. PLEURA: No significant pleural effusion identified, no pneumothorax apparent. CARDIOVASCULAR: Normal. OSSEOUS STRUCTURES: No significant abnormalities. VISUALIZED UPPER ABDOMEN: Normal. OTHER FINDINGS: None. IMPRESSION: No active disease.
[2018-06-14 16:19] LABS: BASO # 0.02 K/mm3 (0.0-2.0); BASO % 0.2 % (0.0-3.0); EOS # 0.1 (0.0-0.7); EOS % 0.9 % (1.5-5.0); GRAN # 6.27 (1.4-6.5); GRAN % 70.4 % (50.0-68.0); HEMOGLOBIN 14.7 g/dL (12.0-16.0); LYMPH % 22.9 % (22.0-35.0); MEAN CORPUSCULAR HEMOGLOBIN 29.4 pg (25.0-35.0); MEAN CORPUSCULAR HGB CONC 34.2 g/dl (31.0-37.0); MEAN PLATELET VOLUME 10.4 fl (7.0-11.0); MONO # 0.5 (0.1-0.6); MONO % 5.6 % (1.0-6.0); RED CELL DISTRIBUTION WIDTH 15.1 % (11.5-14.5); WHITE BLOOD COUNT 8.9 10^3/ul (4.5-11.0)
[2018-06-14 17:20] LABS: ALB/GLOB RATIO 1.4 (1.1-1.8); ALBUMIN 4.3 g/dL (3.0-4.8); ALT/SGPT 30 U/L (7-56); AST/SGOT 24 U/L (14-36); BLOOD UREA NITROGEN 12 mg/dL (7-21); CALCIUM 9.4 mg/dL (8.4-10.5); GFR AFRICAN-AMERICAN > 60; GFR NON-AFRICAN AMERICAN > 60
[2018-06-14 17:31] LABS: TROPONIN I < 0.01 ng/mL
[2018-06-14 18:25] VITALS: BP 143/94; PULSE 58; RESP 16
--- NOTE | 2018-06-14 18:48 | CARD ---
APPROVED REPORT Date of service: 06/14/2018 EKG Measurement Heart [id number] <Conclusion> Normal sinus rhythm Non Specific ST_T Changes.
== END 2018-06-14 19:02 | disposition home or self-care (01) ==
LOC: ED 14:30
DX: R07.9 Chest pain, unspecified (principal); I25.10 Atherosclerotic heart disease of native coronary artery without angina pectoris; I10 Essential (primary) hypertension; J44.9 Chronic obstructive pulmonary disease, unspecified; Z87.891 Personal history of nicotine dependence; Z99.81 Dependence on supplemental oxygen

== ENCOUNTER 2018-08-28 14:08 | Inpatient (IN) | payer MEDICAID, MEDICARE ==
[2018-08-28 14:23] VITALS: BMI 30.1
--- NOTE | 2018-08-28 14:36 | ED PDOC ---
Arrival/HPI - General Historian: Patient - History of Present Illness Narrative History of Present Illness (Text): 08/28/18 14:23 73 year old female, with a past medical history of CAD, CHF, Cardiac cath x 4, vertigo, and COPD on 2L home O2, presents to the emergency department with worsening shortness of breath and productive cough for the past 2 weeks. Patient states she had a cough with clear sputum, subjective fevers last week that progressively worsened causing shortness of breath and cough with yellow phlegm. She took robitussin at home that provided minimal relief. She has not been adequately earting or drinking due to decreased appetite and nausea. Patient states she will experience ocassional incontinence with bouts of coughing. No history of urinary incontinence prior. No sick contacts or recent travel. Patient went to see PMD who recommended patient come to the ED for further treatment. Denies chills, vomiting, headache, dizziness, palpitations, abdominal pain, hearing or vision changes. PMD: Dr. Monsivais Time/Duration: > week Symptom Onset: Gradual Symptom Course: Worsening Severity Level: Mild Context: Home <Freddie Bartlett - Last Filed: 08/28/18 19:08> <Joel Martinez DO - Last Filed: 08/28/18 19:14> - General Chief Complaint: Shortness Of Breath Time Seen by Provider: 08/28/18 14:10 Past Medical History - Provider Review Nursing Documentation Reviewed: Yes - Infectious Disease Hx of Infectious Diseases: None - Tetanus Immunization Tetanus Immunization: Unknown - Reproductive Menopause: Yes - Cardiac Hx Hypertension: Yes - Pulmonary Hx Respiratory Disorders: Yes Hx Chronic Obstructive Pulmonary Disease (COPD): Yes - Neurological Hx Neurological Disorder: No - HEENT Hx HEENT Disorder: Yes Hx Cataracts: Yes (sx bilat 2012) Other/Comment: bilat eyelid surg for drooping 2013 - Renal Hx Renal Disorder: No - Endocrine/Metabolic Hx Hypothyroidism: Yes - Hematological/Oncological Hx Blood Disorders: No - Integumentary Hx Dermatological Disorder: No - Musculoskeletal/Rheumatological Hx Arthritis: Yes (degenerative disk dse) - Gastrointestinal Hx Gastroesophageal Reflux: Yes - Genitourinary/Gynecological Hx Genitourinary Disorders: No - Psychiatric Hx Psychophysiologic Disorder: Yes Hx Anxiety: Yes Hx Panic Disorder: Yes Hx Substance Use: No Other/Comment: hx claustrophobia - Surgical History Hx Orthopedic Surgery: Yes (Right shoulder ligament repair) - Anesthesia Hx Anesthesia: Yes - Suicidal Assessment Feels Threatened In Home Enviroment: No <KarthikallysonGeorgiaFreddie - Last Filed: 08/28/18 19:08> Family/Social History - Physician Review Nursing Documentation Reviewed: Yes Family/Social History: Unknown Family HX Smoking Status: Current Some Days Smoker Hx Alcohol Use: No Hx Substance Use: No Hx Substance Use Treatment: No <Freddie Bartlett - Last Filed: 08/28/18 19:08> Allergies/Home Meds <KarthikFreddie valadez - Last Filed: 08/28/18 19:08> <Joel Martinez DO - Last Filed: 08/28/18 19:14> Allergies/Adverse Reactions: Allergies acetaminophen [From Tylenol] Allergy (Verified 08/28/18 14:53) RASH FISH Allergy (Verified 08/28/18 14:53) RASH iodine Allergy (Verified 08/28/18 14:53) RASH mercury (elemental) Allergy (Verified 08/28/18 14:53) RASH shellfish derived Allergy (Verified 08/28/18 14:53) RASH azithromycin Adverse Reaction (Verified 08/28/18 18:55) NAUSEA steroid Allergy (Uncoded 08/28/18 14:53) RASH Home Medications: Home Meds Medication Instructions Recorded Confirmed diaZEpam [Valium] 5 mg PO BID 07/21/16 10/15/17 Review of Systems - Physician Review All systems were reviewed & negative as marked: Yes - Review of Systems Constitutional: Fevers Eyes: absent: Vision Changes ENT: absent: Hearing Changes Respiratory: SOB, Cough, Sputum, Wheezing Cardiovascular: Chest Pain. absent: Palpitations Gastrointestinal: Nausea. absent: Abdominal Pain, Vomiting Genitourinary Female: absent: Dysuria, Hematuria Musculoskeletal: absent: Arthralgias Skin: absent: Rash Neurological: absent: Headache, Dizziness Endocrine: absent: Diaphoresis <Freddie Bartlett - Last Filed: 08/28/18 19:08> Physical Exam Vital Signs Reviewed: Yes Vital Signs Temp Pulse Resp BP Pulse Ox 08/28/18 14:19 98.5 F 92 H 18 141/98 H 95 Temperature: Afebrile Blood Pressure: Normal Pulse: Tachycardic Respiratory Rate: Normal Appearance: Positive for: Well-Appearing, Unkept, Uncomfortable Pain Distress: Mild Mental Status: Positive for: Alert and Oriented X 3 - Systems Exam Head: Present: Atraumatic, Normocephalic Pupils: Present: PERRL Extroacular Muscles: Present: EOMI Conjunctiva: Present: Normal Mouth: Present: Dry Pharnyx: Present: Normal Neck: Present: Normal Range of Motion Respiratory/Chest: Present: Accessory Muscle Use, Wheezes Cardiovascular: Present: Regular Rate and Rhythm, Normal S1, S2. No: Murmurs Abdomen: No: Tenderness, Distention, Peritoneal Signs Upper Extremity: Present: NORMAL PULSES Lower Extremity: Present: NORMAL PULSES Neurological: Present: GCS=15, Speech Normal Skin: Present: Warm, Dry, Normal Color. No: Rashes Psychiatric: Present: Alert, Oriented x 3, Normal Insight, Normal Concentration <Freddie Bartlett - Last Filed: 08/28/18 19:08> Vital Signs Temp Pulse Resp BP Pulse Ox 08/28/18 14:19 98.5 F 92 H 18 141/98 H 95 <Joel Martinez DO - Last Filed: 08/28/18 19:14> Medical Decision Making ED Course and Treatment: 08/28/18 14:43 73F, PMH of CAD, CHF, Cardiac cath x 4, vertigo, and COPD on 2L home O2, presents to the emergency room with cough and shortness of breath for 2 weeks. -CBC, CMP -BNP -Rapid flu A/B -Blood, sputum cultures -CXR -EKG -Duonebs -IVF@75 -Mg 2gm -Solumedrol 125 -Reassess 08/28/18 16:01 CBC, CMP within normal limits BNP elevated 1900 Rapid flu negative CXR - no acute disease EKG NSR, 92bpm 08/28/18 19:[address] Monsivais, patient will be admitted to [facility] <Freddie Bartlett - Last Filed: 08/28/18 19:08> - Lab Interpretations Lab Results: 08/28/18 15:00 08/28/18 15:00 Lab Results 08/28/18 15:00: Influenza Typ A,B (EIA) Negative for flu a/b 08/28/18 15:00: Sodium 140, Potassium 3.4 L, Chloride 101, Carbon Dioxide 30, Anion Gap 12, BUN 16, Creatinine 0.9, Est GFR ( Amer) > 60, Est GFR (Non- Af Amer) > 60, Random Glucose 129 H, Calcium 9.4, Magnesium 2.4 H, Total Bilirubin 0.8, AST 29, ALT 23, Alkaline Phosphatase 98, Lactate Dehydrogenase 560, Total Creatine Kinase 168, Troponin I < 0.01, NT-Pro-B Natriuret Pep 1900 H , Total Protein 8.0, Albumin 4.2, Globulin 3.8, Albumin/Globulin Ratio 1.1 08/28/18 15:00: WBC 12.5 H D, RBC 4.63, Hgb 13.8, Hct 40.5, MCV 87.5, MCH 29.8, MCHC 34.1, RDW 14.3, Plt Count 279, MPV 9.2, Gran % 72.2 H, Lymph % (Auto) 17.6 L, [place] % (Auto) 8.9 H, Eos % (Auto) 1.0 L, Baso % (Auto) 0.3, Gran # 9.01 H, Lymph # (Auto) 2.2, [place] # (Auto) 1.1 H, Eos # (Auto) 0.1, Baso # (Auto) 0.04 - RAD Interpretation Radiology Orders: 08/28/18 14:25 CHEST PORTABLE [RAD] Stat - Medication Orders Current Medication Orders: Sodium Chloride (Sodium Chloride 0.9%) 100 mls @ 75 mls/hr IV .[id number] STA Stop: 08/28/18 15:58 Discontinued Medications Albuterol/Ipratropium (Duoneb 3 Mg/0.5 Mg (3 Ml) Ud) 3 ml IH STAT STA Stop: 08/28/18 14:38 Magnesium Sulfate (Magnesium Sulfate 2 Gm/50 Ml Water) 2 gm in 50 mls @ 50 mls/hr IVPB ONCE ONE Stop: 08/28/18 15:36 Methylprednisolone (Solu-Medrol) 125 mg IVP STAT STA Stop: 08/28/18 14:38 <Joel Martinez DO - Last Filed: 08/28/18 19:14> - PA / INSTRUCTIONAL AIDE / Resident Statement EDWARD has reviewed & agrees with the documentation as recorded. EDWARD has examined the patient and agrees with the treatment plan. - Scribe Statement 73 year old female present with worsening shortness of breath and productive cough. In agreement with resident note, which includes further HPI details. Patient was seen and evaluated with resident, came up with plan and treatment together. <Joel Martinez DO - Last Filed: 08/28/18 19:14> Disposition/Present on Arrival - Present on Arrival Any Indicators Present on Arrival: No History of DVT/PE: No History of Uncontrolled Diabetes: No Urinary Catheter: No History of Decub. Ulcer: No History Surgical Site Infection Following: None - Disposition Have Diagnosis and Disposition been Completed?: Yes Disposition Time: 19:12 Patient Plan: Admission <Freddie Bartlett - Last Filed: 08/28/18 19:08> - Disposition Disposition Time: 16:00 <Joel Martinez DO - Last Filed: 08/28/18 19:14> - Disposition Diagnosis: COPD exacerbation Disposition: HOSPITALIZED Patient Problems: Current Active Problems Problem Status Onset COPD exacerbation Acute Condition: STABLE
[2018-08-28] MEDS ORDERED: Albuterol-Ipratrop 3 mg / 0.5 (3 ml) UD IH STA (14:37)
[2018-08-28] MEDS ORDERED: Magnesium Sulfate 2 gm/50 ml 2 GM/50 ML BAG IVPB ONE (14:37)
[2018-08-28] MEDS ORDERED: Sodium Chloride 0.9% 100 ML IV STA (14:39)
[2018-08-28 15:12] LABS: BASO # 0.04 K/mm3 (0.0-2.0); BASO % 0.3 % (0.0-3.0); EOS # 0.1 (0.0-0.7); GRAN # 9.01 (1.4-6.5); GRAN % 72.2 % (50.0-68.0); HEMOGLOBIN 13.8 g/dL (12.0-16.0); LYMPH # 2.2 (1.2-3.4); LYMPH % 17.6 % (22.0-35.0); MEAN CELL VOLUME 87.5 fl (80.0-105.0); MEAN CORPUSCULAR HEMOGLOBIN 29.8 pg (25.0-35.0); MEAN CORPUSCULAR HGB CONC 34.1 g/dl (31.0-37.0); MEAN PLATELET VOLUME 9.2 fl (7.0-11.0); MONO # 1.1 (0.1-0.6); MONO % 8.9 % (1.0-6.0); RBC 4.63 10^6/uL (3.5-6.1); RED CELL DISTRIBUTION WIDTH 14.3 % (11.5-14.5); WHITE BLOOD COUNT 12.5 10^3/ul (4.5-11.0)
[2018-08-28 15:26] LABS: ALB/GLOB RATIO 1.1 (1.1-1.8); ALBUMIN 4.2 g/dL (3.0-4.8); ALT/SGPT 23 U/L (7-56); AST/SGOT 29 U/L (14-36); BLOOD UREA NITROGEN 16 mg/dL (7-21); CALCIUM 9.4 mg/dL (8.4-10.5); GFR NON-AFRICAN AMERICAN > 60
--- NOTE | 2018-08-28 15:30 | RAD ---
Date of service: 08/28/2018 HISTORY: cough - r/o infiltrate COMPARISON: 06/14/2018 FINDINGS: LUNGS: No active pulmonary disease. PLEURA: No significant pleural effusion identified, no pneumothorax apparent. CARDIOVASCULAR: No radiographic findings to suggest acute or significant cardiovascular disease. OSSEOUS STRUCTURES: No significant abnormalities. VISUALIZED UPPER ABDOMEN: Normal. OTHER FINDINGS: None. IMPRESSION: No active disease. No significant interval change compared to the prior examination(s).
[2018-08-28 15:32] LABS: B-TYPE NATRIURETIC PEPTIDE 1900 pg/mL (0-450); TROPONIN I < 0.01 ng/mL
[2018-08-28] MEDS: Albuterol-Ipratrop 3 mg / 0.5 (3 ml) UD IH SCH ×3 (16:20→16:45)
[2018-08-28] MEDS: Azithromycin 500MG/NS 250ml 500 MG/250 ML BAG IVPB SCH (17:12)
[2018-08-28] MEDS: Sodium Chloride 0.45% 1,000 ML IV SCH (18:50)
[2018-08-28] MEDS: Levalbuterol 1.25 MG/3 ML Inhal Soln UD IH SCH (21:00)
[2018-08-28] MEDS: MethylPREDNISolone 40 mg Vial IV SCH (21:44)
--- NOTE | 2018-08-28 23:50 | HP ---
HISTORY OF PRESENT ILLNESS: The patient is 73 years old, was seen in office earlier with generalized weakness, looked pale, short of breath. Unable to talk full sentence. On examination, she was wheezing profusely, so ambulance was called and the patient was sent to emergency room. The patient states she is not feeling well for almost a week and a half. Also, did not have any nausea or vomiting. Did have decreased appetite. She states she feels very weak, dizzy when she stands up. PAST MEDICAL HISTORY: Significant for, 1. Hypertension. 2. Noninsulin-dependent diabetes. 3. Anxiety disorder. 4. Severe degenerative disk disease. 5. History of partial small bowel resection. 6. History of ventral hernia repair. ALLERGIES: SHE IS ALLERGIC TO TYLENOL, FISH, IODINE, MERCURY, SHELLFISH. MEDICATIONS AT HOME: She takes Valium 5 mg twice a day. SOCIAL HISTORY: She is active smoker. She has been smoking for more than 50 years. She still smokes almost a half a pack a day. REVIEW OF SYSTEMS: Generalized weakness. Looks pale. No energy. PHYSICAL EXAMINATION: GENERAL: She is awake and alert, able to communicate. VITAL SIGNS: She is afebrile, pulse 92, respirations 18, blood pressure 141/98. LUNGS: Bilateral expiratory rhonchi diffuse allover. HEART: S1 and S2 audible. ABDOMEN: Soft. Nontender. No rebound. No guarding. NEUROLOGICAL: The patient is awake and alert, able to communicate. EXTREMITIES: Bilateral leg, no edema. LABORATORY EXAM: WBC is 12.5, hemoglobin 13, hematocrit of 40.5, platelet 279. Chemistry: Sodium 140, potassium 3.4, chloride 101, CO2 of 30, BUN 16, creatinine 0.9, blood sugar of 129. BNP 1900. Flu test is negative. ASSESSMENT: 1. Chronic obstructive pulmonary disease exacerbation. 2. Bilateral severe bronchospasm. 3. Asthmatic bronchitis. 4. Degenerative disk disease. 5. History of Helicobacter pylori gastritis. PLAN: The patient will be admitted. We will give her IV steroid. We will give her IV antibiotic, nebulizer treatment. We will give her IV fluid. Monitor her blood sugar. We will follow up this patient in the a.m. Prachi Monsivais MD
[2018-08-29] MEDS: Levalbuterol 1.25 MG/3 ML Inhal Soln UD IH SCH ×4 (02:50→21:00)
--- NOTE | 2018-08-29 09:36 | CARD ---
APPROVED REPORT Date of service: 08/28/2018 EKG Measurement Heart [id number] 130P46 [id number] <Conclusion> Normal sinus rhythm Small q waves 2,3,F NSSTW changes No change
--- NOTE | 2018-08-29 10:20 | CP.PCM.PN ---
Subjective - Date & Time of Evaluation Date of Evaluation: 08/29/18 Time of Evaluation: 10:05 - Subjective Subjective: Resident house physician note Called by nurse to evaluate patient: As per nurse, when she went to patient's room, patient was lying on the bed eating her breakfast. However patient told her nurse that while she was inside the bathroom, she fell, but was able to get herself up to the bed. Patient states, while walking from the toilet to the sick to watch her hands, she lost her balance and leaned to the left side of her body, didn't fall on the way to the ground because she was able to hold onto something, denies hitting her head, denies LOC, no headache or dizziness. Patient was able to re- group herself and was able to climb back up to her bed, but didn't call nurse for help. States she's been falling a lot at home, denies cp, sob, no n/v, no palpitations. Vitals were stable, fingerstick 137 Objective - Vital Signs/Intake and Output Vital Signs (last 24 hours): Temp Pulse Resp BP Pulse Ox 97.5 F L 102 H 22 144/63 96 08/29/18 06:00 08/29/18 06:03 08/29/18 06:00 08/29/18 06:00 08/29/18 06:00 - Medications Medications: Current Medications Diazepam (Valium) 5 mg PO BID [facility]; Protocol Last Admin: 08/28/18 18:49 Dose: 5 mg Sodium Chloride (Sodium Chloride 0.45%) 1,000 mls @ 75 mls/hr IV [id number] OLIVE Last Admin: 08/28/18 18:50 Dose: 75 mls/hr Azithromycin (Zithromax 500mg In Ns) 500 mg in 250 mls @ 167 mls/hr IVPB DAILY [facility]; Protocol Last Admin: 08/28/18 17:12 Dose: 167 mls/hr Levalbuterol HCl (Xopenex) 1.25 mg IH [id number] [facility] Last Admin: 08/29/18 08:33 Dose: 1.25 mg Methylprednisolone (Solu-Medrol) 40 mg IV Q12 OLIVE Last Admin: 08/28/18 21:44 Dose: 40 mg Pantoprazole Sodium (Protonix Inj) 40 mg IVP DAILY [facility] Last Admin: 08/28/18 17:14 Dose: 40 mg - Labs Labs: 08/28/18 15:00 08/28/18 15:00 - Constitutional Appears: No Acute Distress, Chronically Ill - Head Exam Head Exam: ATRAUMATIC, NORMAL INSPECTION, NORMOCEPHALIC - Eye Exam Eye Exam: Normal appearance - ENT Exam ENT Exam: Mucous Membranes Moist - Neck Exam Neck Exam: Normal Inspection - Respiratory Exam Respiratory Exam: Wheezes. absent: Rales, Rhonchi, Respiratory Distress, Stridor - Cardiovascular Exam Cardiovascular Exam: REGULAR RHYTHM, +S1, +S2, Murmur - GI/Abdominal Exam GI & Abdominal Exam: Soft, Normal Bowel Sounds. absent: Distended, Firm, Guarding, Rigid, Tenderness - Extremities Exam Extremities Exam: Pedal Edema - Neurological Exam Neurological Exam: Alert, Awake, CN II-XII Intact, Oriented x3, Reflexes Normal Neuro motor strength exam: Left Upper Extremity: 5, Right Upper Extremity: 5, Left Lower Extremity: 5, Right Lower Extremity: 5 - Psychiatric Exam Psychiatric exam: Normal Affect, Normal Mood - Skin Skin Exam: Dry, Warm Assessment and Plan - Assessment and Plan (Free Text) Plan: Fingerstick with no hypoglyemia No focal extremities pain or tenderness No focal deficit Vitals are normal No head trauma and denied hitting head Currently lying on the hospital bed and eating breakfast. Continue current management Left message for Dr. Monsivais's service, awaiting response. Valerie Bautista DO [id number]
[2018-08-29] MEDS: MethylPREDNISolone 40 mg Vial IV SCH ×2 (10:22→20:59)
[2018-08-29] MEDS: Sodium Chloride 0.45% 1,000 ML IV SCH (10:25)
[2018-08-29] MEDS: Azithromycin 500MG/NS 250ml 500 MG/250 ML BAG IVPB SCH (11:42)
[2018-08-29] MEDS ORDERED: Sodium Chloride 0.45% 1,000 ML IV SCH (12:23)
[2018-08-29] MEDS: levoFLOXacin 250 mg in D5W 250 MG/50 ML BAG IVPB SCH (12:38)
--- NOTE | 2018-08-29 16:46 | CT ---
Date of service: 08/29/2018 PROCEDURE: CT Chest without contrast HISTORY: Shortness of breath. COMPARISON: None available. TECHNIQUE: Contiguous axial images were obtained through the chest without intravenous contrast enhancement. Sagittal and coronal reconstructions were performed. Radiation dose (DLP): 608.33 mGy-cm. This CT exam was performed using one or more of the following dose reduction techniques: Automated exposure control, adjustment of the mA and/or kV according to patient size, and/or use of iterative reconstruction technique. FINDINGS: LUNGS: Increased interstitial markings without focal-discrete infiltrate. Interstitial edema can assume this appearance. MEDIASTINUM: Unremarkable thoracic aorta. No aneurysm. Cardiomegaly is present. Dilated main pulmonary artery consistent with pulmonary arterial hypertension. No lymphadenopathy. PLEURA: No pleural fluid. No pneumothorax. BONES: No fracture. No destructive lesion. UPPER ABDOMEN: Grossly unremarkable. OTHER FINDINGS: None. IMPRESSION: Interstitial markings are increased. Differential considerations include cardiogenic interstitial edema. Infectious/inflammatory processes/lower airway disease bronchitis should also be considered.
[2018-08-29] MEDS: guaiFENesin DM 100 mg-10 mg/5 ml UD PO PRN (18:49)
--- NOTE | 2018-08-29 19:15 | PN ---
DATE: 08/29/2018 SUBJECTIVE: The patient is 73 years old, seen and examined, still has cough, congestion with shortness of breath. Refused to take Zithromax, it causes her belly pain. PHYSICAL EXAMINATION VITAL SIGNS: The patient is afebrile, pulse 68, respirations 20, and blood pressure 145/63. LUNGS: Bilateral expiratory rhonchi. HEART: S1 and S2 audible. ABDOMEN: Soft, nontender. No rebound. No guarding. NEUROLOGIC: The patient is awake, alert, oriented, communicative. Moves all extremities. ASSESSMENT: 1. Chronic obstructive pulmonary disease exacerbation. 2. Active smoker. 3. Hypertension. 4. Kan-nakycfn-cnxtrckpd diabetes. PLAN: I will order for CT scan of the chest. The patient seems to be tolerating her food. I will discontinue IV fluids. I will start her on IV Levaquin. Continue her on nebulizer treatment. Continue IV steroids. We will follow up the patient in a.m. Prachi Monsivais MD
[2018-08-30] MEDS: guaiFENesin DM 100 mg-10 mg/5 ml UD PO PRN ×4 (01:53→23:37)
[2018-08-30] MEDS: Levalbuterol 1.25 MG/3 ML Inhal Soln UD IH SCH ×4 (02:40→20:50)
[2018-08-30] MEDS: Pantoprazole 40 mg EC Tab PO SCH (08:06)
[2018-08-30] MEDS: MethylPREDNISolone 40 mg Vial IV SCH ×2 (09:32→22:18)
[2018-08-30] MEDS: levoFLOXacin 250 mg in D5W 250 MG/50 ML BAG IVPB SCH (12:24)
--- NOTE | 2018-08-30 12:46 | PN ---
DATE: 08/30/2018 SUBJECTIVE: The patient is 73 years old, seen and examined, has generalized weakness, poor appetite. Complained of cough, congestion, constant wheezing. PHYSICAL EXAMINATION VITAL SIGNS: The patient is afebrile, pulse 61, respirations 20, blood pressure 156/76. LUNGS: Diffuse wheezing bilaterally in the whole upper and lower lung region. HEART: S1 and S2 audible. ABDOMEN: Soft. Nontender. No rebound. No guarding. NEUROLOGICAL: She is awake and alert, able to communicate, ambulatory, but needs assistance. She can only ambulate with walker. LABORATORY EXAM: Blood culture, sputum cultures are negative. CT scan of the chest was done that shows interstitial markings are increased. Differential consideration is cardiogenic interstitial edema. ASSESSMENT: 1. Asthmatic bronchitis. 2. Chronic obstructive pulmonary disease exacerbation. 3. Active smoker. 4. Degenerative disk disease. PLAN: I will introduce small dose of IV Lasix 20 mg. Continue nebulizer treatment. We will follow up this patient in the a.m. Possible transfer to TCU after reevaluation. Prachi Monsivais MD
[2018-08-31] MEDS: Levalbuterol 1.25 MG/3 ML Inhal Soln UD IH SCH ×4 (03:36→20:48)
[2018-08-31] MEDS: Pantoprazole 40 mg EC Tab PO SCH (05:15)
[2018-08-31] MEDS: MethylPREDNISolone 40 mg Vial IV SCH (09:45)
[2018-08-31] MEDS: levoFLOXacin 250 mg in D5W 250 MG/50 ML BAG IVPB SCH (09:48)
[2018-08-31] MEDS: guaiFENesin DM 100 mg-10 mg/5 ml UD PO PRN ×2 (10:01→18:11)
[2018-08-31] MEDS ORDERED: MethylPREDNISolone 40 mg Vial IV SCH (13:00)
[2018-08-31] MEDS: MethylPREDNISolone 40 mg Vial IVP SCH ×2 (14:11→22:21)
--- NOTE | 2018-08-31 16:26 | PN ---
DATE: 08/31/2018 SUBJECTIVE: The patient is 73 years old. Still has cough, congestion, wheezing, unable to lie flat. PHYSICAL EXAMINATION: VITAL SIGNS: She is afebrile, pulse 66, respirations 19, and blood pressure 146/62. LUNGS: Bilateral diffuse expiratory rhonchi. HEART: S1 and S2 audible. ABDOMEN: Soft. Obese. Nontender. No rebound. No guarding. NEUROLOGIC: The patient is awake, alert, oriented, and communicative. EXTREMITIES: Bilateral leg, no edema. ASSESSMENT: 1. Chronic obstructive pulmonary disease exacerbation. 2. Mild congestive heart failure. 3. Active smoker. 4. Peptic ulcer disease. PLAN: I will increase her Levaquin to 500 daily. We will get input from meter changes records clerk. We will increase her steroid to three times a day and we will keep her on GI prophylaxis. We will follow up the patient in the a.m. Prachi Monsivais MD
[2018-09-01] MEDS: Levalbuterol 1.25 MG/3 ML Inhal Soln UD IH SCH (01:02)
[2018-09-01] MEDS: Pantoprazole 40 mg EC Tab PO SCH (05:26)
[2018-09-01] MEDS: MethylPREDNISolone 40 mg Vial IVP SCH ×3 (05:27→22:56)
[2018-09-01] MEDS: guaiFENesin DM 100 mg-10 mg/5 ml UD PO PRN ×3 (06:37→22:57)
[2018-09-01] MEDS ORDERED: Albuterol-Ipratrop 3 mg / 0.5 (3 ml) UD IH PRN (07:07)
[2018-09-01] MEDS: Albuterol-Ipratrop 3 mg / 0.5 (3 ml) UD IH SCH ×3 (07:52→22:10)
[2018-09-01] MEDS: Budesonide 0.5 mg/2 ml Inhal Susp UD IH SCH ×2 (07:52→22:10)
--- NOTE | 2018-09-01 08:50 | CON ---
DATE: 09/01/2018 PULMONARY CONSULTATION REASON FOR PULMONARY CONSULTATION: Chronic obstructive pulmonary disease. REFERRING PHYSICIAN: Prachi Monsivais MD. HISTORY OF PRESENT ILLNESS: The patient is a 73-year-old female, with past medical history significant for advanced chronic obstructive pulmonary disease, on home oxygen; extensive smoking history - still smokes; coronary artery disease; congestive heart failure; who presented to [facility] with a 1-week history of increasing shortness of breath at rest, dyspnea on exertion, cough and sputum production. There is no history of chest pain, coughing up of blood or chest pain - made worse with deep respirations. There is no history of temperatures, chills or infectious exposure. There is no history of night sweats, weight loss or appetite change prior to the above events. No history of leg or calf pains. No history of syncope or diaphoresis. No history of recent travel or trauma. REVIEW OF SYSTEMS: No history of nausea, vomiting or diarrhea. No acute urinary symptoms. No new neurologic complaints. Rest of the review of systems is negative. ALLERGIES: TO ACETAMINOPHEN, IODINE, AZITHROMYCIN AND CERTAIN STEROIDS. SOCIAL HISTORY: Positive for extensive tobacco usage - still smokes. No alcohol. FAMILY HISTORY: No inheritable diseases. HOME MEDICATIONS LISTED: Valium. No other medications are listed. PHYSICAL EXAMINATION: GENERAL: The patient appears comfortable at rest. She is not short of breath. She is not using accessory muscles for breathing. VITAL SIGNS: (Last noted in the computer): Temperature is 97.7, pulse 62, respirations 19, blood pressure 140/61. Oxygen saturation on nasal cannula is 95%. HEENT: Normocephalic, atraumatic. No JVD. CARDIOVASCULAR: Positive S1, S2. Questionable S3 gallop. LUNGS: Decreased breath sounds at the bases. Scattered rhonchi and expiratory wheezing are appreciated. EXTREMITIES: Mild edema. No cyanosis. No clubbing. Calves are nontender to palpation. GI: Abdomen is soft, nontender and nondistended. Bowel sounds are positive. SKIN: No acute rash. NEUROLOGIC: Limited at the present time. PERTINENT LABORATORY DATA: CAT scan of the chest was done on 08/29/2018 and reviewed. There are very mildly increased interstitial changes - consistent with mild pulmonary edema. There is no mass, nodule or consolidation. There is no lymphadenopathy. CBC: White count 12.5K, hemoglobin 13.8, hematocrit 40.5, platelets of 279,000. Complete metabolic profile: Potassium 3.4, glucose 129, magnesium 2.4, B-type natriuretic peptide 1900. Rest of the metabolic profile is within normal limits. IMPRESSION: 1. Acute bronchitis. 2. Advanced chronic obstructive pulmonary disease - on home oxygen. 3. Possible mild congestive heart failure. 4. Diabetes mellitus. PLAN: I did discuss the case with the night nurse at length. I have also reviewed the chart at length, and discussed the case with the patient at length. The patient presents to [facility] with a 1-week history of worsening pulmonary symptoms. Again, I did review the CAT scan of the chest. Findings are noted above. The CAT scan does show a very mild increase in the interstitial changes - consistent with mild pulmonary edema. There are no other abnormalities noted. I have also reviewed the laboratory data. A significant rise in the B-type natriuretic peptide is noted. The patient is on low-dose intravenous Lasix. On physical exam, the patient is in moderate bronchospasm. I will change the nebulizer treatments to DuoNebs. I will also add inhaled Pulmicort. I will continue with the current intravenous steroids for now. Hopefully, we can start the Solu-Medrol taper in the morning. The patient also remains on levofloxacin. There are no temperatures noted. Clinical status of the patient is mildly improved - compared to the initial presentation. I will discuss the above with Dr. Monsivais later this morning. Thank you very much for this pulmonary consultation. Andrzej Pelayo MD RAIN
[2018-09-01] MEDS: levoFLOXacin 500 mg in D5W 500 MG/100 ML BAG IVPB SCH (09:16)
--- NOTE | 2018-09-01 14:42 | PN ---
DATE: 09/01/2018 SUBJECTIVE: The patient is 73 years old, seen and examined, does have cough, congestion, shortness of breath. No nausea or vomiting. PHYSICAL EXAMINATION VITAL SIGNS: The patient is afebrile, pulse 57, respirations 21, and blood pressure 140/60. LUNGS: Bilateral soft crackle. HEART: S1 and S2 audible. ABDOMEN: Soft, obese, and nontender. No rebound. No guarding. NEUROLOGIC: The patient is awake, alert, oriented, and communicative. Able to move all extremities. PLAN: I will add Mucomyst. We will add Chest PT. Continue her on IV steroids and IV antibiotics. We will follow up. Prachi Monsivais MD
[2018-09-01] MEDS: Acetylcysteine 20% Inhal Soln (4ml) IH SCH (22:10)
[2018-09-02] MEDS: Albuterol-Ipratrop 3 mg / 0.5 (3 ml) UD IH SCH ×4 (01:13→19:57)
[2018-09-02] MEDS: MethylPREDNISolone 40 mg Vial IVP SCH ×3 (05:37→22:18)
[2018-09-02] MEDS: Pantoprazole 40 mg EC Tab PO SCH (05:37)
[2018-09-02] MEDS: Budesonide 0.5 mg/2 ml Inhal Susp UD IH SCH ×2 (07:47→19:56)
[2018-09-02] MEDS: Acetylcysteine 20% Inhal Soln (4ml) IH SCH ×2 (07:47→19:56)
--- NOTE | 2018-09-02 08:10 | PN ---
DATE: 09/02/2018 PULMONARY NOTE SUBJECTIVE: The patient appears comfortable this morning. She is not short of breath at rest. PHYSICAL EXAMINATION: VITAL SIGNS: (Last noted in the computer): Temperature is 97.8, pulse 62, respirations 19, blood pressure 155/65. Oxygen saturation on nasal cannula is 95%. HEENT: Normocephalic, atraumatic. No JVD. CARDIOVASCULAR: Positive S1, S2. Questionable S3 gallop. LUNGS: Decreased breath sounds at the bases. Less rhonchi. Less wheezing. EXTREMITIES: Mild edema. No cyanosis, no clubbing. Calves are nontender to palpation. GASTROINTESTINAL: Abdomen is soft, nontender, and nondistended. Bowel sounds are positive. SKIN: No acute rash. NEUROLOGIC: Limited at the present time. IMPRESSION: 1. Acute bronchitis. 2. Advanced chronic obstructive pulmonary disease. 3. Possible mild congestive heart failure. 4. Diabetes mellitus. PLAN: The patient appears comfortable this morning. She is not short of breath at rest. She does state to feeling much better overall. On physical exam, her bronchospasm is definitely less. In addition, there is no significant alveolar-arterial gradient. I will continue with the current nebulizer treatments and decrease the intravenous steroids this morning. The patient remains on antibiotic therapy. There are no temperatures noted. All culture results are so far negative. Clinical status of the patient is definitely improved - compared to her initial presentation. However, the future status/prognosis for this patient - with advanced lung disease - does remain guarded. I will discuss the above with the attending physician. Andrzej Pelayo MD MTDD
[2018-09-02] MEDS: levoFLOXacin 500 mg in D5W 500 MG/100 ML BAG IVPB SCH (09:20)
[2018-09-02] MEDS: guaiFENesin DM 100 mg-10 mg/5 ml UD PO PRN ×2 (12:04→22:30)
--- NOTE | 2018-09-02 12:59 | DS ---
HISTORY OF PRESENT ILLNESS: The patient is 73 years old, who was admitted because of increasing cough, congestion, shortness of breath, was dehydrated, unable to tolerate any food. PHYSICAL EXAMINATION: VITAL SIGNS: She is afebrile, pulse 67, respirations 22, blood pressure 177/80. LUNGS: Bilateral expiratory rhonchi. HEART: S1 and S2 audible. ABDOMEN: Soft. Nontender. No rebound. No guarding. NEUROLOGICAL: The patient is awake, alert, oriented, communicative. LABORATORY EXAM: Blood culture, urine cultures are negative. ASSESSMENT: 1. Chronic obstructive pulmonary disease exacerbation. 2. Morbid obesity. 3. Noninsulin-dependent diabetes. 4. Hypertension. 5. Hyperlipidemia. 6. History of anxiety disorder. 7. Degenerative disk disease. PLAN: We will continue the patient on current regimen. Since she is diabetic, we will discontinue Norvasc and start her on losartan. A TCU evaluation has been requested. If accepted, the patient will be discharged to TCU today. Prachi Monsivais MD
[2018-09-03] MEDS: Albuterol-Ipratrop 3 mg / 0.5 (3 ml) UD IH SCH ×4 (01:18→19:22)
[2018-09-03] MEDS: Pantoprazole 40 mg EC Tab PO SCH (06:19)
[2018-09-03] MEDS: Acetylcysteine 20% Inhal Soln (4ml) IH SCH ×2 (07:53→19:22)
[2018-09-03] MEDS: Budesonide 0.5 mg/2 ml Inhal Susp UD IH SCH ×2 (07:54→19:22)
--- NOTE | 2018-09-03 08:00 | PN ---
DATE: 09/03/2018 PULMONARY NOTE SUBJECTIVE: The patient appears very comfortable this morning. She is not short of breath at rest. PHYSICAL EXAMINATION: VITAL SIGNS: (Last noted in the computer): Temperature is 98, pulse 71, respirations 18-20, blood pressure 124/69. Oxygen saturation on nasal cannula is 95%. HEENT: Normocephalic, atraumatic. No JVD. CARDIOVASCULAR: Positive S1, S2. Questionable S3 gallop. LUNGS: Improved breath sounds at the bases. Continued decrease in the rhonchi and wheezing bilaterally. EXTREMITIES: Mild edema. No cyanosis, no clubbing. Calves are nontender to palpation. GASTROINTESTINAL: Abdomen is soft, nontender, and nondistended. Bowel sounds are positive. SKIN: No acute rash. NEUROLOGIC: Limited at the present time. IMPRESSION: 1. Acute bronchitis. 2. Advanced chronic obstructive pulmonary disease. 3. Possible mild congestive heart failure. 4. Diabetes mellitus. PLAN: The patient appears very comfortable this morning. She is not short of breath at rest. She does state to feeling much better overall. I did discuss the case with the night nurse at length. The night nurse stated that the patient had a very good night. On physical exam, there is certainly less bronchospasm noted. In addition, the alveolar-arterial gradient is also less. I will continue with the current nebulizer treatments and decrease the intravenous steroids this morning. The patient remains on antibiotic therapy. There are no temperatures noted. The patient also remains on low-dose Lasix. Clinical status of the patient is significantly improved overall. However, the future status/prognosis for this patient - with advanced lung disease - does remain guarded. I will discuss the above with the attending physician. Andrzej Pelayo MD MTDD
[2018-09-03] MEDS: levoFLOXacin 500 mg in D5W 500 MG/100 ML BAG IVPB SCH (09:19)
[2018-09-03] MEDS: MethylPREDNISolone 40 mg Vial IVP SCH ×2 (09:19→21:22)
--- NOTE | 2018-09-03 12:48 | PN ---
DATE: 09/03/2018 SUBJECTIVE: The patient is a 73-year-old, seen and examined, lying in bed, seems to be comfortable, still coughing, less shortness of breath, slight . PHYSICAL EXAMINATION: VITAL SIGNS: She is afebrile, pulse 55, respirations 18, blood pressure 142/65. LUNGS: Bilateral soft crackle and wheezing, much better than before. HEART: S1 and S2 audible. ABDOMEN: Soft, obese, nontender. No rebound. No guarding. NEUROLOGICAL: The patient is awake, alert, oriented, communicative, ambulatory. LABORATORY EXAM: Blood sugar is 137. ASSESSMENT AND PLAN: 1. Chronic obstructive pulmonary disease exacerbation. 2. Bronchospasm. 3. Helicobacter pylori gastritis. 4. Hypertension. 5. Hyperlipidemia. So, plan is patient is currently on acetylcysteine. We will continue on losartan, continue nebulizer treatment. She is on Lasix 20 daily, we will continue that. Continue on Protonix and we will slowly cut on steroids depending on her response and the patient is unable to tolerate oral steroid and oral antibiotics. So, we will continue same regimen over the weekend, possible discharge on Thursday. Prachi Monsivais MD
[2018-09-03] MEDS: guaiFENesin DM 100 mg-10 mg/5 ml UD PO PRN (21:25)
[2018-09-04] MEDS: Albuterol-Ipratrop 3 mg / 0.5 (3 ml) UD IH SCH ×4 (01:42→19:33)
[2018-09-04] MEDS: Pantoprazole 40 mg EC Tab PO SCH (06:17)
[2018-09-04] MEDS: Acetylcysteine 20% Inhal Soln (4ml) IH SCH ×2 (08:09→19:32)
[2018-09-04] MEDS: Budesonide 0.5 mg/2 ml Inhal Susp UD IH SCH (08:10)
[2018-09-04] MEDS: levoFLOXacin 500 mg in D5W 500 MG/100 ML BAG IVPB SCH (09:50)
[2018-09-04] MEDS: MethylPREDNISolone 40 mg Vial IVP SCH (09:51)
--- NOTE | 2018-09-04 11:33 | PN ---
DATE: 09/04/2018 PULMONARY PROGRESS NOTE SUBJECTIVE: The patient was seen and examined at bedside. She reports feeling better although still coughing and wheezing intermittently. She is getting DuoNeb inhalations, we added budesonide. She is on moderate dose of Solu-Medrol 30 mg twice a day and also Mucomyst is added to inhalation treatments. PHYSICAL EXAMINATION: VITAL SIGNS: Temperature is 98.4, pulse 84, respirations 18, blood pressure is 117/74, oxygen saturation on nasal cannula is 95%. HEENT: Head, normocephalic and atraumatic. CARDIOVASCULAR: S1, S2. No S3. PULMONARY: Diminished breath sounds with few rhonchi and few wheezes bilaterally. GI: Soft, nontender. No organomegaly. EXTREMITIES: Mild edema. No cyanosis. SKIN: No acute skin rash. NEUROLOGIC: No focal deficits. ASSESSMENT: 1. Exacerbation of chronic obstructive pulmonary disease. 2. Acute bronchitis. 3. Possible mild congestive heart failure. 4. Diabetes mellitus. PLAN: The patient is starting to improve. No shortness of breath at rest. Scattered rhonchi and wheezing and cough. We will continue with current administration of intravenous steroids as well as nebulizer treatment, was added Mucomyst. Prashant Damon MD
--- NOTE | 2018-09-04 14:01 | PN ---
DATE: 09/04/2018 SUBJECTIVE: The patient is 73 years old, seen and examined. The patient has poor IV access, was unable to get IV medication, p.o. medications gave her a lot of side effect, but the patient states she is still coughing, but better than before. PHYSICAL EXAMINATION: VITAL SIGNS: She is afebrile, pulse 51, respiration 20, blood pressure 164/68. LUNGS: Bilateral fair airflow. No rhonchi or crackle. She has wheezing bilaterally posteriorly, but better than before. ABDOMEN: Soft, obese, nontender. No rebound, no guarding. NEUROLOGICAL: She is awake, alert, oriented, communicative, ambulatory. LABORATORY DATA: Flu test is negative. ASSESSMENT: 1. Chronic obstructive pulmonary disease exacerbation. 2. Asthmatic bronchitis. 3. Hypertension. 4. [id number]-xzqrfzrtn diabetes. PLAN: We will start the patient on p.o. prednisone and p.o. Levaquin and monitor her closely. If she remains stable, she can be discharged on Thursday. Prachi Monsivais MD
[2018-09-05] MEDS: Albuterol-Ipratrop 3 mg / 0.5 (3 ml) UD IH SCH ×4 (01:25→19:26)
[2018-09-05] MEDS: Pantoprazole 40 mg EC Tab PO SCH (05:17)
[2018-09-05] MEDS: Acetylcysteine 20% Inhal Soln (4ml) IH SCH ×2 (08:35→19:26)
[2018-09-05] MEDS: Budesonide 0.5 mg/2 ml Inhal Susp UD IH SCH ×2 (08:36→19:26)
[2018-09-05] MEDS: levoFLOXacin 500 MG TAB PO SCH (09:23)
--- NOTE | 2018-09-05 10:08 | PN ---
DATE: 09/05/2018 PULMONARY PROGRESS NOTE SUBJECTIVE: The patient was seen and examined at the bedside. Still complaining of cough and on and off shortness of breath at rest. She is now on oral prednisone 20 mg a day and inhalation therapy with added budesonide. PHYSICAL EXAMINATION: HEENT: Head normocephalic and atraumatic. NECK: Supple with no jugular vein distentions. CARDIOVASCULAR: S1, S2. No S3. Regular. PULMONARY: Diminished breath sounds with scattered rhonchi and few expiratory wheezes bilaterally. GASTROINTESTINAL: Soft, nontender. No organomegaly. EXTREMITIES: Mild edema. No cyanosis. SKIN: No acute skin rash. NEUROLOGIC: No focal deficits. ASSESSMENT: 1. Exacerbation of chronic obstructive pulmonary disease, slowly improving. 2. Acute bronchitis. 3. Possible mild congestive heart failure. 4. Diabetes mellitus. PLAN: The patient continues with current administration of nebulizer treatment and now on oral prednisone. Her condition is slowly improving; however, shortness of breath is still present even at rest. We will continue with current treatment with added Mucomyst. Prashant Damon MD
--- NOTE | 2018-09-05 10:41 | PN ---
DATE: 09/05/2018 SUBJECTIVE: The patient has no complaints of any chest pain. No shortness of breath. She says her breathing is better. PHYSICAL EXAMINATION: VITAL SIGNS: Temperature is 97.6, pulse of 57, blood pressure is 158/90, respirations 22. GENERAL: The patient is lying in bed, flat, comfortable. HEENT: No oral lesion. Anicteric sclerae. Moist mucosa. NECK: No JVD, adenopathy, or thyromegaly. CARDIOVASCULAR: S1 and S2, regular. No murmurs, rubs, or gallops. LUNGS: Clear to auscultation bilaterally. No wheeze, rales, or rhonchi. ABDOMEN: Bowel sounds are positive, soft, nontender and nondistended. EXTREMITIES: No cyanosis, clubbing or edema. LABORATORY DATA: White count of 12.5, hemoglobin 13.8. Potassium 3.4, creatinine is 0.9. ASSESSMENT: 1. Acute chronic obstructive pulmonary disease exacerbation. 2. Bronchitis. 3. Hypertension. 4. Diabetes type 2. PLAN: The patient is currently comfortable. She is on Levaquin for antibiotic. She is on Lasix daily. The patient is receiving losartan for hypertension. The patient is on a heart-healthy diet. She is going to continue with Lasix IV. Angel Swanson MD
[2018-09-06] MEDS: Albuterol-Ipratrop 3 mg / 0.5 (3 ml) UD IH SCH ×3 (01:14→13:49)
[2018-09-06] MEDS: Pantoprazole 40 mg EC Tab PO SCH (05:19)
--- NOTE | 2018-09-06 08:00 | PN ---
DATE: 09/06/2018 PULMONARY NOTE SUBJECTIVE: The patient appears very comfortable this morning. She is not short of breath at rest. PHYSICAL EXAMINATION: VITAL SIGNS: (Last noted in the computer): Temperature is 98.3, pulse 58, respirations 19, blood pressure 107/57. Oxygen saturation on nasal cannula is 98%. HEENT: Normocephalic, atraumatic. No JVD. CARDIOVASCULAR: Positive S1, S2. No S3 gallop. LUNGS: Clear bilaterally. EXTREMITIES: Mild edema. No cyanosis, no clubbing. Calves are nontender to palpation. GASTROINTESTINAL: Abdomen is soft, nontender, and nondistended. Bowel sounds are positive. SKIN: No acute rash. Neurologic: Limited at the present time. IMPRESSION: 1. Acute bronchitis. 2. Advanced chronic obstructive pulmonary disease. 3. Possible mild congestive heart failure. 4. Diabetes mellitus. PLAN: The patient appears very comfortable this morning. She is not short of breath at rest. She does state to feeling much, much better overall. On physical exam, the patient's lungs are now clear. In addition, the oxygen saturation on nasal cannula is now 98%. I will continue with the current nebulizer treatments and decrease the oral steroids this morning. The patient also remains on oral antibiotic therapy. There are no temperatures noted. Clinical status of the patient is significantly improved overall. The patient is for probable discharge in the near future. She is again strongly advised to stop smoking. She agrees. I will discuss the above with the attending physician. Andrzej Pelayo MD MTDD
[2018-09-06 08:20] VITALS: BP 128/71; PULSE 54; RESP 20; TEMP 97.8; O2SAT 97
[2018-09-06] MEDS: Acetylcysteine 20% Inhal Soln (4ml) IH SCH ×2 (08:21→13:49)
[2018-09-06] MEDS: Budesonide 0.5 mg/2 ml Inhal Susp UD IH SCH (08:22)
[2018-09-06] MEDS: levoFLOXacin 500 MG TAB PO SCH (09:55)
--- NOTE | 2018-09-07 09:12 | DS ---
HISTORY OF PRESENT ILLNESS: Patient is 73 years old, who was seen in office on 08/28/2018 with cough, congestion, poor oral intake, feeling weak, dizzy, lightheaded, who was referred to hospital for admission and IV antibiotics because patient is not able to tolerate any oral steroid and antibiotics. She started having abdominal discomfort. So, patient was admitted and was given IV antibiotics, IV steroid, nebulizer treatments. She started to improve. PHYSICAL EXAMINATION: GENERAL: Today on examination, she is awake, alert, oriented, communicative. VITAL SIGNS: She is afebrile, pulse 54, respirations 20, blood pressure 128/71. LUNGS: Bilateral occasional expiratory rhonchi. HEART: S1 and S2 audible. ABDOMEN: Soft, nontender. No rebound. No guarding. NEUROLOGIC: Patient is awake, alert, oriented, communicative, ambulatory. ASSESSMENT: 1. Asthmatic bronchitis. 2. Chronic obstructive pulmonary disease. 3. Active smoker. 4. [id number]-ztosrtodv diabetes. 5. Hypertension. PLAN: Patient will be discharged today. She was given prescription of Levaquin 250 daily for 5 more days. She is on prednisone 20 mg twice a day for 3 days and then 20 mg daily for 5 days. We will give her Protonix. She has been started on losartan and she will resume her all other medication. I will follow up in the office in a.m. Prachi Monsivais MD
== END 2018-09-06 14:58 | disposition home or self-care (01) | DRG 88 ==
LOC: ED 14:08 → ERH 16:34 → 3RNO 19:37
PROVIDERS: ADMIT Internal Medicine; ATTEND Internal Medicine
PROC: 3E0F7GC Introduction of Other Therapeutic Substance into Respiratory Tract, Via Natural or Artificial Opening (ICD-10-PCS; principal; 2018-08-29)
DX: J44.1 Chronic obstructive pulmonary disease with (acute) exacerbation (principal); I11.0 Hypertensive heart disease with heart failure; I50.9 Heart failure, unspecified; E11.9 Type 2 diabetes mellitus without complications; E66.01 Morbid (severe) obesity due to excess calories; I25.10 Atherosclerotic heart disease of native coronary artery without angina pectoris; J20.9 Acute bronchitis, unspecified; J44.0 Chronic obstructive pulmonary disease with (acute) lower respiratory infection; K29.70 Gastritis, unspecified, without bleeding; E78.5 Hyperlipidemia, unspecified; K21.9 Gastro-esophageal reflux disease without esophagitis; Z68.30 Body mass index [BMI] 30.0-30.9, adult; F17.210 Nicotine dependence, cigarettes, uncomplicated; Z99.81 Dependence on supplemental oxygen; Z79.84 Long term (current) use of oral hypoglycemic drugs; Z86.19 Personal history of other infectious and parasitic diseases

== ENCOUNTER 2019-02-24 15:20 | Inpatient (IN) | payer MEDICARE, MEDICAID ==
[2019-02-24 15:37] VITALS: BMI 31.1
[2019-02-24] MEDS ORDERED: Sodium Chloride 0.9% 1,000 ML IV STA (16:14)
--- NOTE | 2019-02-24 16:21 | ED PDOC ---
Arrival/HPI <Laura Woods - Last Filed: 02/25/19 17:23> - General Historian: Patient - History of Present Illness Narrative History of Present Illness (Text): 02/24/19 16:15 74 year old F with pmh of CAD, CHF, Cardiac cath x 4, vertigo, and COPD on 2L home O2 presents for evaluation of her abdomen. Patient reports that Dr. Monsivais advised to report to the emergency department to have her abdomen examined before her colonoscopy on the morning of 03/28/2019. Patient complains of intermittent watery stool, nausea, headache, chest pain and shortness of breath [id number]. Patient denies any fevers, chills, dizziness, cough, diaphoresis, abdominal pain, vomiting, back pain, neck pain, or any other complaint. PMD: Dr. Monsivais Time/Duration: > month Symptom Onset: Gradual Symptom Course: Unchanged Activities at Onset: Light Context: Home <Khanh Nascimento - Last Filed: 03/02/19 21:56> - General Chief Complaint: GI Problem Time Seen by Provider: 02/24/19 15:42 Past Medical History - Provider Review Nursing Documentation Reviewed: Yes - Infectious Disease Hx of Infectious Diseases: None - Tetanus Immunization Tetanus Immunization: Unknown - Cardiac Hx Cardiac Disorders: Yes Hx Congestive Heart Failure: Yes Hx Hypertension: Yes - Pulmonary Hx Respiratory Disorders: Yes Hx Chronic Obstructive Pulmonary Disease (COPD): Yes - Neurological Hx Neurological Disorder: No - HEENT Hx HEENT Disorder: Yes Hx Cataracts: Yes (sx bilat 2012) Other/Comment: b/l eyelid surg for drooping 2013 - Renal Hx Renal Disorder: No - Endocrine/Metabolic Hx Endocrine Disorders: No - Hematological/Oncological Hx Blood Disorders: No - Integumentary Hx Dermatological Disorder: No - Musculoskeletal/Rheumatological Hx Musculoskeletal Disorders: Yes Hx Arthritis: Yes - Gastrointestinal Hx Gastrointestinal Disorders: Yes Hx Gastroesophageal Reflux: Yes - Genitourinary/Gynecological Hx Genitourinary Disorders: No - Psychiatric Hx Psychophysiologic Disorder: Yes Hx Anxiety: Yes Hx Panic Disorder: Yes Hx Substance Use: No Other/Comment: hx claustrophobia - Surgical History Hx Coronary Stent: Yes Hx Orthopedic Surgery: Yes (Right shoulder ligament repair) - Anesthesia Hx Anesthesia: Yes - Suicidal Assessment Feels Threatened In Home Enviroment: No <Khanh Nascimento - Last Filed: 03/02/19 21:56> Family/Social History - Physician Review Nursing Documentation Reviewed: Yes Family/Social History: Unknown Family HX Smoking Status: Current Some Days Smoker Hx Alcohol Use: No Hx Substance Use: No Hx Substance Use Treatment: No <Khanh Nascimento - Last Filed: 03/02/19 21:56> Allergies/Home Meds <Laura Woods - Last Filed: 02/25/19 17:23> <Khanh Nascimento - Last Filed: 03/02/19 21:56> Allergies/Adverse Reactions: Allergies acetaminophen [From Tylenol] Allergy (Verified 02/24/19 15:40) RASH FISH Allergy (Verified 02/24/19 15:40) RASH iodine Allergy (Verified 02/24/19 15:40) RASH mercury (elemental) Allergy (Verified 02/24/19 15:40) RASH shellfish derived Allergy (Verified 02/24/19 15:40) RASH azithromycin Adverse Reaction (Verified 02/24/19 15:40) NAUSEA steroid Allergy (Uncoded 02/24/19 15:40) RASH Home Medications: Home Meds Medication Instructions Recorded Confirmed diaZEpam [Valium] 5 mg PO BID 07/21/16 08/30/18 Review of Systems - Physician Review All systems were reviewed & negative as marked: Yes - Review of Systems Constitutional: Normal Eyes: Normal ENT: Normal Respiratory: SOB. absent: Cough Cardiovascular: Chest Pain Gastrointestinal: Diarrhea, Nausea. absent: Vomiting Genitourinary Female: Normal Musculoskeletal: Normal Skin: Normal Neurological: Headache Endocrine: Normal Hemo/Lymphatic: Normal Psychiatric: Normal <Khanh Nascimento - Last Filed: 03/02/19 21:56> Physical Exam Vital Signs Pulse Resp BP Pulse Ox 02/24/19 22:20 20 02/24/19 22:00 68 18 128/65 100 02/24/19 19:00 64 18 131/62 100 02/24/19 16:21 67 16 135/59 L 100 02/24/19 15:20 64 16 141/81 98 <Laura Woods - Last Filed: 02/25/19 17:23> Vital Signs Reviewed: Yes Vital Signs Pulse Resp BP Pulse Ox 02/24/19 15:20 64 16 141/81 98 Temperature: Afebrile Blood Pressure: Normal Pulse: Regular Respiratory Rate: Normal Appearance: Positive for: Well-Appearing, Non-Toxic, Comfortable Pain Distress: Mild Mental Status: Positive for: Alert and Oriented X 3 - Systems Exam Head: Present: Atraumatic, Normocephalic Pupils: Present: PERRL Extroacular Muscles: Present: EOMI Conjunctiva: Present: Normal Mouth: Present: Moist Mucous Membranes Neck: Present: Normal Range of Motion Respiratory/Chest: Present: Clear to Auscultation, Good Air Exchange. No: Respiratory Distress, Accessory Muscle Use Cardiovascular: Present: Regular Rate and Rhythm, Normal S1, S2. No: Murmurs Abdomen: Present: Tenderness, Other (obese) Back: Present: Normal Inspection Upper Extremity: Present: Normal Inspection. No: Cyanosis, Edema Lower Extremity: Present: Normal Inspection. No: Edema Neurological: Present: GCS=15, Speech Normal Skin: Present: Warm, Dry, Normal Color. No: Rashes Psychiatric: Present: Alert, Oriented x 3, Normal Insight, Normal Concentration <Khanh Nascimento - Last Filed: 03/02/19 21:56> Medical Decision Making - Lab Interpretations Lab Results: PT 11.9 SECONDS (9.4-12.5) 02/24/19 17:20 INR 1.07 02/24/19 17:20 APTT 28.2 Seconds (26.9-38.3) 02/24/19 17:20 Troponin I < 0.01 ng/mL 02/24/19 17:20 Total Bilirubin 0.7 mg/dL (0.2-1.3) 02/24/19 17:20 AST 22 U/L (14-36) 02/24/19 17:20 ALT 25 U/L (7-56) 02/24/19 17:20 Alkaline Phosphatase 93 U/L (38-126) 02/24/19 17:20 Total Protein 7.4 g/dL (5.8-8.3) 02/24/19 17:20 Albumin 3.9 g/dL (3.0-4.8) 02/24/19 17:20 Globulin 3.5 gm/dL 02/24/19 17:20 Albumin/Globulin Ratio 1.1 (1.1-1.8) 02/24/19 17:20 Amylase < 30 U/L (35-125) L 02/24/19 17:20 Lipase 61 U/L (23-300) 02/24/19 17:20 Urine Color Yellow (YELLOW) 02/24/19 17:20 Urine Appearance Slight-cloudy (CLEAR) 02/24/19 17:20 Urine pH 5.5 (4.7-8.0) 02/24/19 17:20 Ur Specific [place] >= 1.030 (1.005-1.035) 02/24/19 17:20 Urine Protein Negative mg/dL (<30 mg/dL) 02/24/19 17:20 Urine Glucose (UA) Negative mg/dL (NEGATIVE) 02/24/19 17:20 Urine Ketones Negative mg/dL (NEGATIVE) 02/24/19 17:20 Urine Blood Small (NEGATIVE) H 02/24/19 17:20 Urine Nitrate Negative (NEGATIVE) 02/24/19 17:20 Urine Bilirubin Negative (NEGATIVE) 02/24/19 17:20 Urine Urobilinogen 0.2 E.U./dL (<1 E.U./dL) 02/24/19 17:20 Ur Leukocyte Esterase Small Annalisa/uL (NEGATIVE) H 02/24/19 17:20 Urine RBC 1 - 3 /hpf (0-2) H 02/24/19 17:20 Urine WBC 2 - 5 /hpf (0-6) 02/24/19 17:20 Ur Epithelial Cells 0 - 2 /hpf (0-5) 02/24/19 17:20 Urine Other Mucus /hpf 02/24/19 17:20 - RAD Interpretation Radiology Orders: 02/24/19 16:23 CHEST PORTABLE [RAD] Stat 02/24/19 19:13 ABDOMEN & PELVIS [ABD & PELVIS PO CONTRAST ONLY] [CT] Stat - Medication Orders Current Medication Orders: Albuterol/Ipratropium (Duoneb 3 Mg/0.5 Mg (3 Ml) Ud) 3 ml IH [id number] PRN PRN Reason: Shortness of Breath Diazepam (Valium) 5 mg PO BID [facility]; Protocol Last Admin: 02/25/19 09:03 Dose: 5 mg Behavioural Document 02/25/19 09:03 KIRAN (Rec: 02/25/19 09:04 KIRAN [id number]) Maintenance Maintenance Dose Yes Nonmedicinal Nonmedicinal Interventions Redirect Therapeutic Communication Behavior Behavior for Medication: Anxiety Re-Assess: Reassess Psych Meds Document 02/25/19 10:03 KIRAN (Rec: 02/25/19 12:04 [id number] Reassess Psych Med Effective Sodium Chloride (Sodium Chloride 0.45%) 1,000 mls @ 75 mls/hr IV .[id number] OLIVE Metronidazole (Flagyl) 500 mg in 100 mls @ 100 mls/hr IVPB Q8 OLIVE; Protocol Last Admin: 02/25/19 13:40 Dose: Not Given Non-Admin Reason: Patient Refused Ceftriaxone Sodium (Rocephin 1 Gram Ivpb) 1 gm in 100 mls @ 100 mls/hr IVPB DAILY [facility]; Protocol Last Admin: 02/25/19 12:05 Dose: Not Given Non-Admin Reason: Patient Refused Losartan Potassium (Cozaar) 100 mg PO DAILY OLIVE Last Admin: 02/25/19 12:05 Dose: Not Given Non-Admin Reason: Patient Refused Pantoprazole Sodium (Protonix Inj) 40 mg IVP DAILY [facility] Last Admin: 02/25/19 09:05 Dose: 40 mg IVP Administration Document 02/25/19 09:05 KIRAN (Rec: 02/25/19 09:05 [id number] Charges for Administration # of IVP Administrations 1 Discontinued Medications Sodium Chloride (Sodium Chloride 0.9%) 1,000 mls @ 100 mls/hr IV .Q10H STA Stop: 02/25/19 02:13 Last Admin: 02/24/19 17:31 Dose: 100 mls/hr eMAR Start Stop Document 02/24/19 17:31 MA (Rec: 02/24/19 18:32 [facility]) Intravenous Solution Start Date 02/24/19 Start Time 17:30 Ciprofloxacin (Cipro 400mg/200ml Dsw) 400 mg in 200 mls @ 133.3 mls/hr IVPB STAT STA; Protocol Stop: 02/24/19 22:40 Last Admin: 02/25/19 00:01 Dose: 133.3 mls/hr eMAR Start Stop Document 02/25/19 00:01 RE (Rec: 02/25/19 00:02 RE [facility] Intravenous Solution Start Date 02/25/19 Start Time 00:02 Metronidazole (Flagyl) 500 mg in 100 mls @ 100 mls/hr IVPB STAT STA; Protocol Stop: 02/24/19 22:10 Last Admin: 02/25/19 00:01 Dose: 100 mls/hr eMAR Start Stop Document 02/25/19 00:01 RE (Rec: 02/25/19 00:01 RE [facility] Intravenous Solution Start Date 02/25/19 Start Time 00:01 <Laura Woods - Last Filed: 02/25/19 17:23> ED Course and Treatment: 02/24/19 16:20 Impression: 74 year old F presents for evaluation of her abdomen. Differential Diagnosis included but are not limited to: Plan: -- Labs -- EKG -- ABD Pelvis CT -- Chest X-ray -- Urinalysis -- Saline IV .9% -- Reassess and disposition Prior Visits: Notes and results from previous visits were reviewed. Progress Notes: 02/24/19 16:20 Discussed patient's case with Dr. Bishop who advised me to give patient a abdominal CT and to consult Demetri Sarmiento, Ice Skater Dr. Bishop mentioned that the Patient's CT culture returned negative <Khanh Nascimento - Last Filed: 03/02/19 21:56> - Scribe Statement The provider has reviewed the documentation as recorded by the Flores Reyna All medical record entries made by the Scribe were at my direction and personally dictated by me. I have reviewed the chart and agree that the record accurately reflects my personal performance of the history, physical exam, medical decision making, and the department course for this patient. I have also personally directed, reviewed, and agree with the discharge instructions and disposition. <Khanh Nascimento - Last Filed: 03/02/19 21:56> Disposition/Present on Arrival <Laura Woods - Last Filed: 02/25/19 17:23> - Present on Arrival Any Indicators Present on Arrival: No History of DVT/PE: No History of Uncontrolled Diabetes: No Urinary Catheter: No History of Decub. Ulcer: No History Surgical Site Infection Following: None - Disposition Have Diagnosis and Disposition been Completed?: Yes Disposition Time: 20:28 <Khanh Nascimento - Last Filed: 03/02/19 21:56> - Disposition Diagnosis: Pancolitis, Enteritis Disposition: HOSPITALIZED Condition: GUARDED Addendum Addendum: 02/25/19 16:[address] Abd/Pelvis - FINDINGS: There is limited evaluation of the solid organs without the administration of IV contrast. LOWER THORAX: No visible consolidation, pleural effusion, or pneumothorax. Visualized portions of the heart appear within normal limits of size. LIVER: Heterogeneous hypoattenuation of the liver possibly related to hepatic steatosis. Hepatic calcifications may be seen in the setting of prior granulomatous infection. GALLBLADDER AND BILE DUCTS: Cholecystectomy. PANCREAS: Unremarkable unenhanced appearance. SPLEEN: 10 mm probable splenule. Otherwise unremarkable unenhanced appearance. ADRENALS: Unremarkable. KIDNEYS AND URETERS: No hydronephrosis or obstructing renal calculus. BLADDER: Mild wall thickening of the urinary bladder no associated inflammatory changes; recommend correlation with urinalysis. REPRODUCTIVE: Uterus is absent consistent with hysterectomy. APPENDIX: Unremarkable. BOWEL: The stomach is nondistended. Rectal wall thickening. Circumferential thickening of the rectosigmoid colon can be seen in setting of chronic diverticulosis. The bowel loops appear within normal limits of caliber without evidence of intestinal obstruction. PERITONEUM: No significant free fluid. No definite free air. LYMPH NODES: No bulky lymphadenopathy identified. VASCULATURE: No aortic aneurysm. Dense atherosclerotic calcifications of the aorta. BONES: Osseous demineralization. Degenerative changes. OTHER FINDINGS: None. IMPRESSION: Rectal wall thickening possibly secondary to proctitis however neoplasm cannot be excluded. Circumferential thickening of the rectosigmoid colon can be seen in setting of chronic diverticulosis. Correlate clinically. Suggest further evaluation with follow-up colonoscopy if indicated. Mild wall thickening of the urinary bladder no associated inflammatory changes; recommend correlation with urinalysis. Heterogeneous hypoattenuation of the liver possibly related to hepatic steatosis. Hepatic calcifications may be seen in the setting of prior granulomatous infection. Additional findings as above. 02/25/19 17:23 Spoke with admitting team, Dr. Herrera, who was made aware of updated CT read. <Laura Woods - Last Filed: 02/25/19 17:23>
[2019-02-24] MEDS ORDERED: Iohexol 240 (50 ml) ONE (16:44)
[2019-02-24 17:32] LABS: BASO # 0.06 K/mm3 (0.0-2.0); BASO % 0.6 % (0.0-3.0); EOS # 0.1 (0.0-0.7); EOS % 1.4 % (1.5-5.0); HEMOGLOBIN 13.7 g/dL (12.0-16.0); LYMPH # 3.4 (1.2-3.4); LYMPH % 36.5 % (22.0-35.0); MEAN CELL VOLUME 87.5 fl (80.0-105.0); MEAN CORPUSCULAR HEMOGLOBIN 28.5 pg (25.0-35.0); MEAN CORPUSCULAR HGB CONC 32.5 g/dl (31.0-37.0); MEAN PLATELET VOLUME 9.5 fl (7.0-11.0); MONO # 0.7 (0.1-0.6); MONO % 7.4 % (1.0-6.0); PH,URINE 5.5 (4.7-8.0); RBC 4.81 10^6/uL (3.5-6.1); URINE APPEARANCE SLIGHT-CLOUDY (CLEAR); URINE BILIRUBIN NEGATIVE (NEGATIVE); URINE BLOOD SMALL (NEGATIVE); URINE COLOR YELLOW (YELLOW); URINE GLUCOSE (UA) NEGATIVE (NEGATIVE); URINE LEUKOCYTE ESTERASE SMALL Leu/uL (NEGATIVE); URINE PROTEIN NEGATIVE mg/dL (<30 mg/dL); URINE UROBILINOGEN 0.2 E.U./dL (<1 E.U./dL); WHITE BLOOD COUNT 9.3 10^3/uL (4.5-11.0)
[2019-02-24 17:38] LABS: URINE EPITHELIAL CELLS 0 - 2 /hpf (0-5)
[2019-02-24 17:41] LABS: INR 1.07; PARTIAL THROMBOPLASTIN TIME 28.2 Seconds (26.9-38.3); PROTHROMBIN TIME 11.9 SECONDS (9.4-12.5)
[2019-02-24 17:42] LABS: ALB/GLOB RATIO 1.1 (1.1-1.8); ALBUMIN 3.9 g/dL (3.0-4.8); ALT/SGPT 25 U/L (7-56); AMYLASE < 30 U/L (35-125); AST/SGOT 22 U/L (14-36); BLOOD UREA NITROGEN 13 mg/dL (7-21); CALCIUM 9.2 mg/dL (8.4-10.5); GFR NON-AFRICAN AMERICAN > 60; LIPASE 61 U/L (23-300)
[2019-02-24 17:53] LABS: TROPONIN I < 0.01 ng/mL
[2019-02-24] MEDS ORDERED: Ciprofloxacin 400mg/200ml D5W 400 MG/200 ML BAG IVPB STA (21:10)
[2019-02-24] MEDS ORDERED: metroNIDAZOLE IV 500 mg/100 ml 500 MG/100 ML BAG IVPB STA (21:11)
--- NOTE | 2019-02-25 06:45 | CP.PCM.HP ---
<Valerie Bautista - Last Filed: 02/25/19 11:54> History of Present Illness - History of Present Illness History of Present Illness: IM resident H&P for Dr. Durham service covering for Dr. Swanson CC: watery diarrhea Patient is a 73 y/o with PMHx of COPD with 2 litter oxygen, CAD, CHF, HTN, h/o h pylori, anxiety, severe DJD sent from PMDs office due to diarrhea. Patient has been experiencing watery bowel movement for a month, saw Dr Monsivais in the office and was told to come to the hospital. Patient states shes scheduled for colonoscopy next month, however the diarrhea has become more persistent. Last diarrhea episode was this morning, non foul smelling, no fatty floating stool. A dmits to intermittent nausea, and abdominal pain. No fever or chills. Reviewed CT abdomen and pelvis revealed pancolitis and PMHx: as stated above PSHx: cardiac cath, h/o partial gastrectomy, hysterectomy, cholecystitis. FMH: unknown Social: active tobacco use, denies alcohol, or illicit drug use. Home meds: as per chart Allergy: acetaminophen, fish, iodine, mercury. Present on Admission - Present on Admission Any Indicators Present on Admission: No History of DVT/PE: No History of Uncontrolled Diabetes: No Urinary Catheter: No Decubitus Ulcer Present: No Review of Systems - Review of Systems All systems: reviewed and no additional remarkable complaints except Review of Systems: 10 point ROS reviewed, all negative except as mentioned in H&P. Past Patient History - Infectious Disease Hx of Infectious Diseases: None - Tetanus Immunizations Tetanus Immunization: Unknown - Past Medical History & Family History Past Medical History?: Yes - Past Social History Smoking Status: Current Some Days Smoker Alcohol: None Drugs: Denies Home Situation {Lives}: Alone - CARDIAC Hx Cardiac Disorders: Yes Hx Congestive Heart Failure: Yes Hx Hypertension: Yes - PULMONARY Hx Respiratory Disorders: Yes Hx Chronic Obstructive Pulmonary Disease (COPD): Yes - NEUROLOGICAL Hx Neurological Disorder: No - HEENT Hx HEENT Problems: Yes Hx Cataracts: Yes (sx bilat 2012) Other/Comment: b/l eyelid surg for drooping 2013 - RENAL Hx Chronic Kidney Disease: No - ENDOCRINE/METABOLIC Hx Endocrine Disorders: No - HEMATOLOGICAL/ONCOLOGICAL Hx Blood Disorders: No - INTEGUMENTARY Hx Dermatological Problems: No - MUSCULOSKELETAL/RHEUMATOLOGICAL Hx Musculoskeletal Disorders: Yes Hx Arthritis: Yes - GASTROINTESTINAL Hx Gastrointestinal Disorders: Yes Hx Gastroesophageal Reflux: Yes - GENITOURINARY/GYNECOLOGICAL Hx Genitourinary Disorders: No - PSYCHIATRIC Hx Psychophysiologic Disorder: Yes Hx Anxiety: Yes Hx Panic Symptoms: Yes Other/Comment: hx claustrophobia - SURGICAL HISTORY Hx Coronary Stent: Yes Hx Orthopedic Surgery: Yes (Right shoulder ligament repair) - ANESTHESIA Hx Anesthesia: Yes Meds Allergies/Adverse Reactions: Allergies Allergy/AdvReac Type Severity Reaction Status Date / Time acetaminophen [From Tylenol] Allergy RASH Verified 02/24/19 15:40 FISH Allergy RASH Verified 02/24/19 15:40 iodine Allergy RASH Verified 02/24/19 15:40 mercury (elemental) Allergy RASH Verified 02/24/19 15:40 shellfish derived Allergy RASH Verified 02/24/19 15:40 azithromycin AdvReac NAUSEA Verified 02/24/19 15:40 steroid Allergy RASH Uncoded 02/24/19 15:40 Physical Exam - Constitutional Appears: No Acute Distress, Chronically Ill - Head Exam Head Exam: ATRAUMATIC, NORMAL INSPECTION, NORMOCEPHALIC - Eye Exam Eye Exam: EOMI, Normal appearance, PERRL. absent: Scleral icterus Pupil Exam: NORMAL ACCOMODATION - ENT Exam ENT Exam: Mucous Membranes Moist - Neck Exam Neck exam: Positive for: Normal Inspection. Negative for: Lymphadenopathy, Meningismus, Tenderness, Thyromegaly - Respiratory Exam Respiratory Exam: Clear to Auscultation Bilateral, NORMAL BREATHING PATTERN. absent: Prolonged Expiratory Phase, Rales, Rhonchi, Wheezes, Respiratory Distress, Stridor - Cardiovascular Exam Cardiovascular Exam: REGULAR RHYTHM, RRR, +S1, +S2. absent: Bradycardia, Tachycardia, Diastolic murmur, Gallop, Irregular Rhythm, JVD, Rubs, Systolic Murmur - GI/Abdominal Exam GI & Abdominal Exam: Normal Bowel Sounds, Soft, Tenderness (diffuse.). absent: Distended, Firm, Guarding, Hyperactive Bowel Sounds, Hypoactive Bowel Sounds, Organomegaly, Pulsatile Mass, Rebound, Rigid Additional comments: + Obese abdomen. - Extremities Exam Extremities exam: Positive for: normal inspection - Back Exam Back exam: NORMAL INSPECTION - Neurological Exam Neurological exam: Alert, Oriented x3 - Psychiatric Exam Psychiatric exam: Normal Affect, Normal Mood - Skin Skin Exam: Dry, Intact, Normal Color, Warm Results - Vital Signs Recent Vital Signs: Last Vital Signs Temp Pulse 68 02/24/19 22:00 Resp 18 02/24/19 22:00 BP 128/65 02/24/19 22:00 Pulse Ox 100 02/24/19 22:00 - Labs Result Diagrams: 02/24/19 17:20 02/24/19 17:20 Labs: Laboratory Results - last 24 hr 02/24/19 02/24/19 02/24/19 17:20 17:20 17:20 WBC 9.3 RBC 4.81 Hgb 13.7 Hct 42.1 MCV 87.5 MCH 28.5 MCHC 32.5 RDW 14.0 Plt Count 227 MPV 9.5 Neut % (Auto) 54.1 Lymph % (Auto) 36.5 H Riley % (Auto) 7.4 H Eos % (Auto) 1.4 L Baso % (Auto) 0.6 Lymph # (Auto) 3.4 Riley # (Auto) 0.7 H Eos # (Auto) 0.1 Baso # (Auto) 0.06 Absolute Neuts (auto) 5.01 PT 11.9 INR 1.07 APTT 28.2 Sodium Potassium Chloride Carbon Dioxide Anion Gap BUN Creatinine Est GFR ( Amer) Est GFR (Non-Af Amer) Random Glucose Calcium Total Bilirubin AST ALT Alkaline Phosphatase Lactate Dehydrogenase Total Creatine Kinase Troponin I Total Protein Albumin Globulin Albumin/Globulin Ratio Amylase Lipase Urine Color Yellow Urine Appearance Slight-cloudy Urine pH 5.5 Ur Specific [place] >= 1.030 Urine Protein Negative Urine Glucose (UA) Negative Urine Ketones Negative Urine Blood Small H Urine Nitrate Negative Urine Bilirubin Negative Urine Urobilinogen 0.2 Ur Leukocyte Esterase Small H Urine RBC 1 - 3 H Urine WBC 2 - 5 Ur Epithelial Cells 0 - 2 Urine Other Mucus 02/24/19 17:20 WBC RBC Hgb Hct MCV MCH MCHC RDW Plt Count MPV Neut % (Auto) Lymph % (Auto) Riley % (Auto) Eos % (Auto) Baso % (Auto) Lymph # (Auto) Riley # (Auto) Eos # (Auto) Baso # (Auto) Absolute Neuts (auto) PT INR APTT Sodium 138 Potassium 3.9 Chloride 103 Carbon Dioxide 27 Anion Gap 12 BUN 13 Creatinine 0.8 Est GFR ( Amer) > 60 Est GFR (Non-Af Amer) > 60 Random Glucose 101 Calcium 9.2 Total Bilirubin 0.7 AST 22 ALT 25 Alkaline Phosphatase 93 Lactate Dehydrogenase 537 Total Creatine Kinase 56 Troponin I < 0.01 Total Protein 7.4 Albumin 3.9 Globulin 3.5 Albumin/Globulin Ratio 1.1 Amylase < 30 L Lipase 61 Urine Color Urine Appearance Urine pH Ur Specific [place] Urine Protein Urine Glucose (UA) Urine Ketones Urine Blood Urine Nitrate Urine Bilirubin Urine Urobilinogen Ur Leukocyte Esterase Urine RBC Urine WBC Ur Epithelial Cells Urine Other Assessment & Plan - Assessment and Plan (Free Text) Assessment: 1) Pancolitis 2) COPD with 2 litter oxygen, 3) CAD, 4) h/o CHF, 5) HTN, 6) h/o h pylori, 7) Anxiety, 8) Severe DJD 9) Gerd Plan: Patient is admitted for pancolitis. Will start Rocephin and Flagyl. Gi is consulted. No fever or leukocytosis. Blood cultures, urine and stool cultures were sent. Stool c diff is sent. Patient hs NS@75 cc per hour for hydration. On protonix for gerd, Valium for anxiety. Will add duoneb prn for COPD. Losartan for htn. External compressive device for DVT prophyalxis. Patient seen, examined and case discussed with Dr. Swanson. - Date & Time Date: 02/25/19 Time: 10:00 <Angel Swanson S - Last Filed: 02/25/19 19:56> Results - Vital Signs Recent Vital Signs: Last Vital Signs Temp 98 F 02/25/19 17:18 Pulse 86 02/25/19 17:18 Resp 16 02/25/19 17:50 BP 178/86 H 02/25/19 17:50 Pulse Ox 99 02/25/19 17:18 - Labs Result Diagrams: 02/24/19 17:20 02/24/19 17:20 Labs: Laboratory Results - last 24 hr 02/25/19 09:00 Stool Occult Blood Negative Assessment & Plan - Assessment and Plan (Free Text) Plan: Pt seen and examined by me. I have reviewed the note of the medical record librarian and I agree with it. I have discussed the assessment and plan with the resident. I have reviewed the medications and the last labs.
--- NOTE | 2019-02-25 08:48 | CARD ---
APPROVED REPORT Date of service: 02/24/2019 EKG Measurement Heart [id number] <Conclusion> Normal sinus rhythm Nonspecific T wave abnormality
--- NOTE | 2019-02-25 08:59 | RAD ---
Date of service: 02/24/2019 HISTORY: r/o infiltrate COMPARISON: 08/28/2018 TECHNIQUE: 1 view obtained. FINDINGS: LUNGS: No active pulmonary disease. PLEURA: No significant pleural effusion identified, no pneumothorax apparent. CARDIOVASCULAR: Aortic calcification Mild cardiomegaly. No pulmonary vascular congestion. OSSEOUS STRUCTURES: No significant abnormalities. VISUALIZED UPPER ABDOMEN: Normal. OTHER FINDINGS: None. IMPRESSION: No active disease.
[2019-02-25] MEDS ORDERED: Albuterol-Ipratrop 3 mg / 0.5 (3 ml) UD IH PRN (11:06)
--- NOTE | 2019-02-25 11:33 | CP.PCM.CON ---
<Mariel Barone - Last Filed: 02/25/19 15:20> History of Present Illness - History of Present Illness History of Present Illness: Mariel Barone, PGY2, GI Consult Note for Dr Sarmiento: Reason for consult: enteritis, abdominal pain CC: diarrhea Patient is a 73 year old female, poor historian, with PMH COPD with home 2 liters oxygen, HTN, h/o h pylori, anxiety, severe DJD, is here for diarrhea for past 1 month. Patient report brown, watery, diarrheal movements every day. Patient also reports left sided abdominal pain, achy in duration, occurring with BMs. Patient states that she started having such symptoms since she stopped smoking 1 year ago. Patient had a scheduled colonoscopy on 03/28/19. However, she was sent from Dr Monsivais's office as she complained of persistent diarrhea/pain. Denies recent antibiotic use, dizziness, raw green leafy vegetables, uncooked meat, eating out of the ordinary, weight loss, recent travel, fevers, chills. Prior EGD was in [address] Sarmiento, which showed h pylori, rick fundoplication, erosive gastropathy, focal intestinal metaplasia without dys plasia. Reports last colonoscopy with Dr Nevarez 5 years ago, had "few polyps." She was advised to go for colonoscopy after that, but refused to do it. In ED, patient afebrile with stable vitals, cbc, cmp. Imaging showed proctitis, given cipro, flagyl. C diff negative. GI consulted for further management. 12 point ROS as per HPI above, otherwise negative PMD: Dr. Monsivais PMH: COPD on home 2L O2, partial small bowel obstruction, partial gastrectomy, history of h pylori, severe degenerative disk disease, hypertension, chronic vertigo with prior vestibular treatment and meclizine use. GERD PSH: partial gastrectomy Allergies: acetaminophen, fish, iodine, mercury Family Hx: Non-contributory Social Hx: Extensive tobacco use, denies illicit drug and alcohol use Scopes: EGD (2016 for dysphagia): Rick fundoplication was found at GE junction. erosive gastropathy. single gastric polyp. nrml duodenum.bx: mild chronic active gastritis. focal intestinal metaplasia without dysplasia. + h pylori. Review of Systems - Review of Systems All systems: reviewed and no additional remarkable complaints except Review of Systems: as per HPI Past Patient History - Infectious Disease Hx of Infectious Diseases: None - Tetanus Immunizations Tetanus Immunization: Unknown - Past Medical History & Family History Past Medical History?: Yes - Past Social History Smoking Status: Current Some Days Smoker Alcohol: None Drugs: Denies Home Situation {Lives}: Alone - CARDIAC Hx Cardiac Disorders: Yes Hx Congestive Heart Failure: Yes Hx Hypertension: Yes - PULMONARY Hx Respiratory Disorders: Yes Hx Chronic Obstructive Pulmonary Disease (COPD): Yes - NEUROLOGICAL Hx Neurological Disorder: No - HEENT Hx HEENT Problems: Yes Hx Cataracts: Yes (sx bilat 2012) Other/Comment: b/l eyelid surg for drooping 2013 - RENAL Hx Chronic Kidney Disease: No - ENDOCRINE/METABOLIC Hx Endocrine Disorders: No - HEMATOLOGICAL/ONCOLOGICAL Hx Blood Disorders: No - INTEGUMENTARY Hx Dermatological Problems: No - MUSCULOSKELETAL/RHEUMATOLOGICAL Hx Musculoskeletal Disorders: Yes Hx Arthritis: Yes - GASTROINTESTINAL Hx Gastrointestinal Disorders: Yes Hx Gastroesophageal Reflux: Yes - GENITOURINARY/GYNECOLOGICAL Hx Genitourinary Disorders: No - PSYCHIATRIC Hx Psychophysiologic Disorder: Yes Hx Anxiety: Yes Hx Panic Symptoms: Yes Other/Comment: hx claustrophobia - SURGICAL HISTORY Hx Coronary Stent: Yes Hx Orthopedic Surgery: Yes (Right shoulder ligament repair) - ANESTHESIA Hx Anesthesia: Yes Meds Allergies/Adverse Reactions: Allergies Allergy/AdvReac Type Severity Reaction Status Date / Time acetaminophen [From Tylenol] Allergy RASH Verified 02/24/19 15:40 FISH Allergy RASH Verified 02/24/19 15:40 iodine Allergy RASH Verified 02/24/19 15:40 mercury (elemental) Allergy RASH Verified 02/24/19 15:40 shellfish derived Allergy RASH Verified 02/24/19 15:40 azithromycin AdvReac NAUSEA Verified 02/24/19 15:40 steroid Allergy RASH Uncoded 02/24/19 15:40 - Medications Medications: Current Medications Albuterol/Ipratropium (Duoneb 3 Mg/0.5 Mg (3 Ml) Ud) 3 ml IH [id number] PRN PRN Reason: Shortness of Breath Diazepam (Valium) 5 mg PO BID [facility]; Protocol Last Admin: 02/25/19 09:03 Dose: 5 mg Sodium Chloride (Sodium Chloride 0.45%) 1,000 mls @ 75 mls/hr IV .[id number] [facility] Metronidazole (Flagyl) 500 mg in 100 mls @ 100 mls/hr IVPB Q8 [facility]; Protocol Ceftriaxone Sodium (Rocephin 1 Gram Ivpb) 1 gm in 100 mls @ 100 mls/hr IVPB DAILY [facility]; Protocol Losartan Potassium (Cozaar) 100 mg PO DAILY [facility] Pantoprazole Sodium (Protonix Inj) 40 mg IVP DAILY [facility] Last Admin: 02/25/19 09:05 Dose: 40 mg Physical Exam - Constitutional Appears: Non-toxic, No Acute Distress - Head Exam Head Exam: ATRAUMATIC, NORMOCEPHALIC Additional comments: + facial hair noted. + signs of virilization - Eye Exam Eye Exam: EOMI, PERRL. absent: Conjunctival injection, Nystagmus, Scleral icterus Pupil Exam: NORMAL ACCOMODATION, PERRL. absent: Irregular, Miosis, Mydriatic - ENT Exam ENT Exam: Mucous Membranes Moist - Neck Exam Neck exam: Positive for: Full Rom - Respiratory Exam Respiratory Exam: Clear to Auscultation Bilateral, NORMAL BREATHING PATTERN. absent: Chest Wall Tenderness, Rhonchi, Respiratory Distress, Stridor - Cardiovascular Exam Cardiovascular Exam: RRR, +S1, +S2. absent: Systolic Murmur - GI/Abdominal Exam GI & Abdominal Exam: Normal Bowel Sounds. absent: Distended, Firm, Guarding, Mass, Rebound, Rigid Additional comments: + midline scar noted. + tenderness to palpation in LUQ and LLQ - Extremities Exam Extremities exam: Positive for: normal inspection. Negative for: calf tenderness, pedal edema - Back Exam Back exam: NORMAL INSPECTION - Neurological Exam Neurological exam: Alert, Oriented x3 - Psychiatric Exam Psychiatric exam: Normal Affect, Normal Mood - Skin Skin Exam: Dry, Normal Color, Warm Results - Vital Signs Recent Vital Signs: Last Vital Signs Temp 97.5 F L 02/25/19 06:00 Pulse 60 02/25/19 06:00 Resp 20 02/25/19 06:00 BP 159/84 H 02/25/19 06:00 Pulse Ox 98 02/25/19 06:00 - Labs Result Diagrams: 02/24/19 17:20 02/24/19 17:20 Labs: Laboratory Results - last 24 hr 02/24/19 02/24/19 02/24/19 17:20 17:20 17:20 WBC 9.3 RBC 4.81 Hgb 13.7 Hct 42.1 MCV 87.5 MCH 28.5 MCHC 32.5 RDW 14.0 Plt Count 227 MPV 9.5 Neut % (Auto) 54.1 Lymph % (Auto) 36.5 H [place] % (Auto) 7.4 H Eos % (Auto) 1.4 L Baso % (Auto) 0.6 Lymph # (Auto) 3.4 [place] # (Auto) 0.7 H Eos # (Auto) 0.1 Baso # (Auto) 0.06 Absolute Neuts (auto) 5.01 PT 11.9 INR 1.07 APTT 28.2 Sodium Potassium Chloride Carbon Dioxide Anion Gap BUN Creatinine Est GFR ( Amer) Est GFR (Non-Af Amer) Random Glucose Calcium Total Bilirubin AST ALT Alkaline Phosphatase Lactate Dehydrogenase Total Creatine Kinase Troponin I Total Protein Albumin Globulin Albumin/Globulin Ratio Amylase Lipase Urine Color Yellow Urine Appearance Slight-cloudy Urine pH 5.5 Ur Specific [place] >= 1.030 Urine Protein Negative Urine Glucose (UA) Negative Urine Ketones Negative Urine Blood Small H Urine Nitrate Negative Urine Bilirubin Negative Urine Urobilinogen 0.2 Ur Leukocyte Esterase Small H Urine RBC 1 - 3 H Urine WBC 2 - 5 Ur Epithelial Cells 0 - 2 Urine Other Mucus Stool Occult Blood 02/24/19 02/25/19 17:20 09:00 WBC RBC Hgb Hct MCV MCH MCHC RDW Plt Count MPV Neut % (Auto) Lymph % (Auto) [place] % (Auto) Eos % (Auto) Baso % (Auto) Lymph # (Auto) [place] # (Auto) Eos # (Auto) Baso # (Auto) Absolute Neuts (auto) PT INR APTT Sodium 138 Potassium 3.9 Chloride 103 Carbon Dioxide 27 Anion Gap 12 BUN 13 Creatinine 0.8 Est GFR ( Amer) > 60 Est GFR (Non-Af Amer) > 60 Random Glucose 101 Calcium 9.2 Total Bilirubin 0.7 AST 22 ALT 25 Alkaline Phosphatase 93 Lactate Dehydrogenase 537 Total Creatine Kinase 56 Troponin I < 0.01 Total Protein 7.4 Albumin 3.9 Globulin 3.5 Albumin/Globulin Ratio 1.1 Amylase < 30 L Lipase 61 Urine Color Urine Appearance Urine pH Ur Specific [place] Urine Protein Urine Glucose (UA) Urine Ketones Urine Blood Urine Nitrate Urine Bilirubin Urine Urobilinogen Ur Leukocyte Esterase Urine RBC Urine WBC Ur Epithelial Cells Urine Other Stool Occult Blood Negative Assessment & Plan - Assessment and Plan (Free Text) Assessment: # Proctitis # Diarrhea, abdominal pain # COPD on home 2L O2 # HTN # DJD # GERD # h/o h pylori - NPO - will take patient today for flexible sigmoidoscopy - c/w IVF - continue with antibiotics - further recs per Dr Sarmiento. Case seen and discussed with Dr Sarmiento. <Holden Sarmiento V - Last Filed: 02/25/19 19:36> Meds - Medications Medications: Current Medications Albuterol/Ipratropium (Duoneb 3 Mg/0.5 Mg (3 Ml) Ud) 3 ml IH [id number] PRN PRN Reason: Shortness of Breath Diazepam (Valium) 5 mg PO BID [facility]; Protocol Last Admin: 02/25/19 18:14 Dose: 5 mg Sodium Chloride (Sodium Chloride 0.45%) 1,000 mls @ 75 mls/hr IV .[id number] [facility] Metronidazole (Flagyl) 500 mg in 100 mls @ 100 mls/hr IVPB Q8 [facility]; Protocol Last Admin: 02/25/19 13:40 Dose: Not Given Ceftriaxone Sodium (Rocephin 1 Gram Ivpb) 1 gm in 100 mls @ 100 mls/hr IVPB DAILY [facility]; Protocol Last Admin: 02/25/19 12:05 Dose: Not Given Losartan Potassium (Cozaar) 100 mg PO DAILY [facility] Last Admin: 02/25/19 12:05 Dose: Not Given Pantoprazole Sodium (Protonix Inj) 40 mg IVP DAILY [facility] Last Admin: 02/25/19 09:05 Dose: 40 mg Results - Vital Signs Recent Vital Signs: Last Vital Signs Temp 98 F 02/25/19 17:18 Pulse 86 02/25/19 17:18 Resp 16 02/25/19 17:50 BP 178/86 H 02/25/19 17:50 Pulse Ox 99 02/25/19 17:18 - Labs Result Diagrams: 02/24/19 17:20 02/24/19 17:20 Labs: Laboratory Results - last 24 hr 02/25/19 09:00 Stool Occult Blood Negative Attending/Attestation - Attestation I have personally seen and examined this patient.: Yes I have fully participated in the care of the patient.: Yes I have reviewed all pertinent clinical information: Yes Notes (Text): This patient was seen and evaluated here earlier along with the resident. This is an addendum to the GI consultation report dictated by the medical equipment repairer. This patient has history of "" ulcerative colitis many years ago. 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 Had a colonoscopy surveillance for polyps. Not noted to have colitis. Last colonoscopy was more than 5 years ago. History of H. pylori gastritis in the past. Patient now admitted with a one month history of loose watery diarrhea. Some abdominal bloating. No bleeding. The CT scan done was reported as pancolitis. On examination abdomen soft bowel sounds normal no significant tenderness Patient would benefit from colonoscopy to rule out pseudomembranous colitis rule out ulcerative colitis. Risk benefits alternatives explained informed consent was obtained 02/25/19 19:34
--- NOTE | 2019-02-25 11:57 | CT ---
PROCEDURE: CT Abdomen and Pelvis without IV contrast. HISTORY: enteritis and abdominal pain COMPARISON: CT abdomen and pelvis without IV contrast performed 06/18/18 TECHNIQUE: Contiguous axial images of the abdomen and pelvis. Oral contrast was administered. No IV contrast given. Coronal and Sagittal reformats generated and reviewed. Radiation dose: Total exam DLP = 1048.09 mGy-cm. This CT exam was performed using one or more of the following dose reduction techniques: Automated exposure control, adjustment of the mA and/or kV according to patient size, and/or use of iterative reconstruction technique. FINDINGS: There is limited evaluation of the solid organs without the administration of IV contrast. LOWER THORAX: No visible consolidation, pleural effusion, or pneumothorax. Visualized portions of the heart appear within normal limits of size. LIVER: Heterogeneous hypoattenuation of the liver possibly related to hepatic steatosis. Hepatic calcifications may be seen in the setting of prior granulomatous infection. GALLBLADDER AND BILE DUCTS: Cholecystectomy. PANCREAS: Unremarkable unenhanced appearance. SPLEEN: 10 mm probable splenule. Otherwise unremarkable unenhanced appearance. ADRENALS: Unremarkable. KIDNEYS AND URETERS: No hydronephrosis or obstructing renal calculus. BLADDER: Mild wall thickening of the urinary bladder no associated inflammatory changes; recommend correlation with urinalysis. REPRODUCTIVE: Uterus is absent consistent with hysterectomy. APPENDIX: Unremarkable. BOWEL: The stomach is nondistended. Rectal wall thickening. Circumferential thickening of the rectosigmoid colon can be seen in setting of chronic diverticulosis. The bowel loops appear within normal limits of caliber without evidence of intestinal obstruction. PERITONEUM: No significant free fluid. No definite free air. LYMPH NODES: No bulky lymphadenopathy identified. VASCULATURE: No aortic aneurysm. Dense atherosclerotic calcifications of the aorta. BONES: Osseous demineralization. Degenerative changes. OTHER FINDINGS: None. IMPRESSION: Rectal wall thickening possibly secondary to proctitis however neoplasm cannot be excluded. Circumferential thickening of the rectosigmoid colon can be seen in setting of chronic diverticulosis. Correlate clinically. Suggest further evaluation with follow-up colonoscopy if indicated. Mild wall thickening of the urinary bladder no associated inflammatory changes; recommend correlation with urinalysis. Heterogeneous hypoattenuation of the liver possibly related to hepatic steatosis. Hepatic calcifications may be seen in the setting of prior granulomatous infection. Additional findings as above. Preliminary impression was provided by [employer] [facility]. Study marked for PA review.
[2019-02-25] MEDS: metroNIDAZOLE IV 500 mg/100 ml 500 MG/100 ML BAG IVPB SCH ×3 (12:05→21:33)
[2019-02-25] MEDS: cefTRIAXone 1 gm 1 GM/100 ML BAG IVPB SCH (12:05)
[2019-02-25] MEDS ORDERED: Lidocaine 2% Jelly (30 ml) ONE (17:22)
--- NOTE | 2019-02-25 20:21 | CP.PCM.PCO ---
Physician Communication Note - Physician Communication Note Physician Communication Note: Pt has Suture granuloma/?Colitis-Needs colonoscopy/suture removal office
--- NOTE | 2019-02-25 23:17 | HP ---
DATE OF EXAM: 02/25/2019 HISTORY OF PRESENT ILLNESS: The patient was seen and examined. I do agree with the note of the medical practitioners and the patient was involved in plan of care. This is coverage for Dr. Monsivais. The patient was admitted to hospital because of chronic diarrhea. She has been having diarrhea for the past few weeks. She has history of COPD, coronary artery disease, and hypertension. She had a CT scan that showed colitis, it was a pancolitis. She was placed on Rocephin and Flagyl. GI was consulted. Blood cultures and urine cultures have been sent. She is on IV fluids with normal saline. She is going to continue with Protonix for her gastroesophageal reflux disease. She does have anxiety. She is on Valium. She gets DuoNeb for her COPD. She is stable. The patient is on losartan for her hypertension. She does refuse medications at times because she states she has side effects. The patient does have osteoarthritis and DJD of her joints. I did speak to Dr. Monsivais regarding the patient's case earlier today prior to seeing the patient. The patient does not wish to have a colonoscopy done. The patient is going to be seen by GI and they will try to convince her about having a procedure done, possibly flex sigmoidoscopy. I also spoke with Dr. Herrmann because she complained of a small wound on her abdomen from a suture that she had many years ago. Angel Swanson MD
[2019-02-26] MEDS: Sodium Chloride 0.45% 1,000 ML IV SCH (04:02)
[2019-02-26] MEDS: metroNIDAZOLE IV 500 mg/100 ml 500 MG/100 ML BAG IVPB SCH ×3 (06:11→21:40)
[2019-02-26] MEDS ORDERED: Albuterol-Ipratrop 3 mg / 0.5 (3 ml) UD IH ONE (08:23)
[2019-02-26] MEDS: cefTRIAXone 1 gm 1 GM/100 ML BAG IVPB SCH (09:27)
--- NOTE | 2019-02-26 10:45 | PN ---
DATE: 02/26/2019 SUBJECTIVE: The patient has no complaints of any chest pain. No shortness of breath. No headaches. She says she does have abdominal discomfort. Her diarrhea is better. PHYSICAL EXAMINATION: VITAL SIGNS: Temperature is 98.1, pulse is 66, blood pressure is 175/92 and respirations 20. GENERAL: The patient is lying in bed, flat, comfortable. HEENT: No oral lesion. Anicteric sclerae. Moist mucosa. NECK: No JVD, adenopathy, or thyromegaly. CARDIOVASCULAR: S1 and S2, regular. No murmurs, rubs, or gallops. LUNGS: Clear to auscultation bilaterally. No wheeze, rales, or rhonchi. ABDOMEN: Bowel sounds are positive, soft, nontender and nondistended. EXTREMITIES: No cyanosis, clubbing or edema. LABORATORY DATA: White count is 9.3 and hemoglobin 13.7. Creatinine 0.8. ASSESSMENT: 1. Colitis with thickening of rectal wall, neoplasm cannot be ruled out. 2. Chronic obstructive pulmonary disease, stable. 3. Coronary artery disease. 4. Hypertension. 5. Anxiety. 6. Osteoarthritis/degenerative joint disease. 7. Gastroesophageal reflux disease. PLAN: The patient is being followed by GI. She has been refusing her IV antibiotic. She is advising importance of taking the antibiotics to help and improve her symptoms. She is on Losartan for hypertension. She is on Rocephin and Flagyl. She is on Valium as needed for anxiety. She has been noncompliant with her medications at home as well. She has blood cultures that are negative. The patient had C. diff that was also negative. I will placed on DuoNeb's as needed and she does get shortness of breath at times. Angel Swanson MD
--- NOTE | 2019-02-27 02:08 | PN ---
DATE: 02/26/2019 SUBJECTIVE: This patient was seen and evaluated earlier. The patient has been complaining of left-sided lower quadrant discomfort. PHYSICAL EXAMINATION: VITAL SIGNS: Remains afebrile. Temperature is 97.9, pulse 56, blood pressure 154/63, and O2 sat is 98%. HEENT: Atraumatic and anicteric. NECK: Supple. HEART: S1 and S2 heard. ABDOMEN: Soft. There is some mild tenderness present in the left lower quadrant area. EXTREMITIES: No cyanosis. No clubbing. NEUROLOGIC: Alert and oriented. Moves all the extremities. LABORATORY DATA: Hemoglobin 13.7, hematocrit 42.1, WBC 9.3, and platelets 227. Chemistry is essentially unremarkable. IMPRESSION: This is a 74-year-old patient admitted with nausea and vomiting, earlier the patient admitted with episodes of watery diarrhea, loose bowel movement for more than a month. Denies any bleeding. The patient was admitted for diarrhea, etiology unclear. The patient has questional h/o IBD , recent ct scan report suggestive of pancolitis in the past. The patient had no recent antibiotic use. The patient's CT scan was reviewed, which showed some colonic thickening and also rectal thickening, had underwent a flexible sigmoidoscopy exam yesterday and which showed only diminutive polyp in the sigmoid colon, no obvious rectal sigmoidal area abnormality noticed otherwise. Biopsies were taken to rule out any microscopic colitis. The etiology for chronic diarrhea is unclear, we would recommend to continue the antibiotics. The patient is reluctant to have the antibiotics. Followup stool studies and followup biopsy. If the patient's symptoms continue to persist, would need colonoscopy. Thank you very much for allowing us to participate in the care of the patient. Holden Sarmiento MD [facility]
[2019-02-27] MEDS: metroNIDAZOLE IV 500 mg/100 ml 500 MG/100 ML BAG IVPB SCH ×4 (08:09→22:25)
[2019-02-27] MEDS: Sodium Chloride 0.45% 1,000 ML IV SCH ×2 (08:10→14:47)
[2019-02-27] MEDS: cefTRIAXone 1 gm 1 GM/100 ML BAG IVPB SCH (09:24)
--- NOTE | 2019-02-27 17:05 | PN ---
DATE: 02/27/2019 SUBJECTIVE: The patient has no complaints of any chest pain or shortness of breath. She says has her diarrhea is better. She has been refusing her medications. PHYSICAL EXAMINATION: VITAL SIGNS: Temperature 97.9, pulse of 64, blood pressure 179/84, respirations 18. GENERAL: The patient is lying in bed, flat, comfortable. HEENT: No oral lesion. Anicteric sclerae. Moist mucosa. NECK: No JVD, adenopathy, or thyromegaly. CARDIOVASCULAR: S1 and S2, regular. No murmurs, rubs, or gallops. LUNGS: Clear to auscultation bilaterally. No wheeze, rales, or rhonchi. ABDOMEN: Bowel sounds are positive, soft, nontender and nondistended. EXTREMITIES: No cyanosis, clubbing or edema. LABORATORY DATA: White count is 9.3 and hemoglobin 13.7. Creatinine 0.8. ASSESSMENT: 1. Colitis with thickening of the rectal wall, neoplasm cannot be ruled out on CAT scan. 2. Chronic obstructive pulmonary disease. 3. Coronary artery disease. 4. Hypertension. 5. Anxiety. 6. Osteoarthritis. 7. Gastroesophageal reflux disease. PLAN: The patient does have watery diarrhea. She has been given Flagyl and Rocephin, but she has been refusing. She is on IV fluid with normal saline. I will decrease her IV fluids to 50 an hour. The patient is on nebulizer treatment. She is going to continue with her Valium as needed for anxiety. She does have an elevated blood pressure. She does refuse blood pressure medications as well. I will put her on Norvasc, if she is willing to take. I will also order labs for tomorrow. Angel Swanson MD
--- NOTE | 2019-02-28 00:37 | PN ---
DATE: 02/27/2019 SUBJECTIVE: This patient was seen and evaluated earlier, feels slightly better, feels hungry, wants to eat. diarrhea has slightly slowed down. PHYSICAL EXAMINATION: VITAL SIGNS: Temperature 98, pulse 60, blood pressure 161/69. HEENT: Atraumatic. Anicteric. NECK: Supple. HEART: S1 and S2 heard. LUNGS: Bilateral air entry present. ABDOMEN: Softly distended. There is mild tenderness in the left lower quadrant area. There is no rebound or guarding. EXTREMITIES: No cyanosis, no clubbing. NEUROLOGIC: Alert and oriented. Moves all extremities. IMPRESSION: This 74-year-old patient is admitted with nausea, vomiting and episodes of loose bowel movements. She described the bowel movements present more than a month. She is also complaining of discomfort in the left lower quadrant area. The CT scan done showed diffuse colitis and possibly some thickening in the rectosigmoidal and rectal area to rule out any underlying neoplasia. The patient does have a questionable history of inflammatory bowel disease. The patient did have multiple colonoscopies done by Dr. 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 The patient has a history of polyps. The patient did have flexible sigmoidoscopy that showed a small polyp in the sigmoid colon, no lesions noticed otherwise. In view of the history of colonic polyp, she would benefit from the colonoscopy. I did explain to her about the limitation of flexible sigmoidoscopy in an unprepared colon. The patient fully understood. At the moment, she does not want to go through the colonoscopy. We will slowly advance the diet. Thank you very much for allowing me to participate in the care of this patient. Holden Sarmiento MD
[2019-02-28] MEDS: Pantoprazole 40 mg EC Tab PO SCH (06:41)
[2019-02-28 07:27] LABS: HEMOGLOBIN 14.4 g/dL (12.0-16.0); MEAN CELL VOLUME 86.7 fl (80.0-105.0); MEAN CORPUSCULAR HEMOGLOBIN 28.5 pg (25.0-35.0); MEAN CORPUSCULAR HGB CONC 32.9 g/dl (31.0-37.0); MEAN PLATELET VOLUME 9.4 fl (7.0-11.0); RBC 5.05 10^6/uL (3.5-6.1); WHITE BLOOD COUNT 7.6 10^3/uL (4.5-11.0)
[2019-02-28 08:12] LABS: ALB/GLOB RATIO 1.2 (1.1-1.8); ALBUMIN 3.9 g/dL (3.0-4.8); ALT/SGPT 29 U/L (7-56); AST/SGOT 34 U/L (14-36); BLOOD UREA NITROGEN 20 mg/dL (7-21); CALCIUM 9.4 mg/dL (8.4-10.5); GFR NON-AFRICAN AMERICAN > 60
[2019-02-28] MEDS: Sodium Chloride 0.45% 1,000 ML IV SCH (09:25)
[2019-02-28] MEDS: Cefpodoxime (Vantin) 200 mg Tab PO SCH ×2 (11:24→21:46)
--- NOTE | 2019-02-28 13:56 | CP.PCM.PN ---
<Mariel Barone - Last Filed: 02/28/19 13:52> Subjective - Date & Time of Evaluation Date of Evaluation: 02/28/19 Time of Evaluation: 12:00 - Subjective Subjective: Mariel Barone, PGY2, GI Progress Note for Dr Sarmiento: Patient seen and examined at bedside. No acute events overnight. Patient reports that she had 1 solid bowel movement this AM with "pebble like brown" stools. However, patient then had 4 watery diarrheal movements after. Reports ongoing left sided abdominal pain. Denies fevers, chills, nausea, vomiting. This AM, patient agreed to do colonoscopy after risks/benefits explained, consent signed and witnessed by bedside nurse Reyna. Objective - Vital Signs/Intake and Output Vital Signs (last 24 hours): Temp Pulse Resp BP Pulse Ox 97.7 F 79 18 180/83 H 97 02/28/19 06:00 02/28/19 09:25 02/28/19 06:00 02/28/19 09:25 02/28/19 06:00 Intake and Output: 02/28/19 02/28/19 06:59 18:59 Intake Total 980 Balance 980 - Medications Medications: Current Medications Albuterol/Ipratropium (Duoneb 3 Mg/0.5 Mg (3 Ml) Ud) 3 ml IH [id number] PRN PRN Reason: Shortness of Breath Last Admin: 02/26/19 20:40 Dose: 3 ml Amlodipine Besylate (Norvasc) 5 mg PO DAILY [facility] Last Admin: 02/28/19 09:25 Dose: 5 mg Cefpodoxime Proxetil (Vantin) 200 mg PO Q12 [facility] Last Admin: 02/28/19 11:24 Dose: Not Given Diazepam (Valium) 5 mg PO BID [facility]; Protocol Last Admin: 02/28/19 09:22 Dose: 5 mg Sodium Chloride (Sodium Chloride 0.45%) 1,000 mls @ 50 mls/hr IV .Q20H [facility] Last Admin: 02/28/19 09:25 Dose: Not Given Losartan Potassium (Cozaar) 100 mg PO DAILY [facility] Last Admin: 02/28/19 09:25 Dose: Not Given Metronidazole (Flagyl) 500 mg PO Q8 [facility] Last Admin: 02/28/19 06:40 Dose: Not Given Pantoprazole Sodium (Protonix Ec Tab) 40 mg PO 0600 [facility] Last Admin: 02/28/19 06:41 Dose: Not Given - Labs Labs: 02/28/19 07:00 02/28/19 07:00 PT 11.9 SECONDS (9.4-12.5) 02/24/19 17:20 INR 1.07 02/24/19 17:20 APTT 28.2 Seconds (26.9-38.3) 02/24/19 17:20 - Additional Findings Additional findings: - Constitutional Appears: Non-toxic, No Acute Distress - Head Exam Head Exam: ATRAUMATIC, NORMOCEPHALIC Additional comments: + facial hair noted. + signs of virilization - Eye Exam Eye Exam: EOMI, PERRL. absent: Conjunctival injection, Nystagmus, Scleral icterus Pupil Exam: NORMAL ACCOMODATION, PERRL. absent: Irregular, Miosis, Mydriatic - ENT Exam ENT Exam: Mucous Membranes Moist - Neck Exam Neck exam: Positive for: Full Rom - Respiratory Exam Respiratory Exam: Clear to Auscultation Bilateral, NORMAL BREATHING PATTERN. absent: Chest Wall Tenderness, Rhonchi, Respiratory Distress, Stridor - Cardiovascular Exam Cardiovascular Exam: RRR, +S1, +S2. absent: Systolic Murmur - GI/Abdominal Exam GI & Abdominal Exam: Normal Bowel Sounds. absent: Distended, Firm, Guarding, Mass, Rebound, Rigid Additional comments: + midline scar noted. + tenderness to palpation in LUQ and LLQ - Extremities Exam Extremities exam: Positive for: normal inspection. Negative for: calf tenderness, pedal edema - Back Exam Back exam: NORMAL INSPECTION - Neurological Exam Neurological exam: Alert, Oriented x3 - Psychiatric Exam Psychiatric exam: Normal Affect, Normal Mood - Skin Skin Exam: Dry, Normal Color, Warm Assessment and Plan - Assessment and Plan (Free Text) Assessment: # Pancolitis # Diarrhea, abdominal pain # COPD on home 2L O2 # HTN # DJD # GERD # h/o h pylori - will switch to CLD - Flex sigmoidoscopy 02/25 showed diminutive polyp in sigmoid colon, removed with cold biopsy forceps. rectosigmoid normal, internal hemorrhoids. - will schedule for colonoscopy, likely on Thursday - continue with antibiotics - further recs per Dr Sarmiento. Case seen and discussed with Dr Sarmiento. <Holden Sarmiento V - Last Filed: 02/28/19 23:02> Objective - Vital Signs/Intake and Output Vital Signs (last 24 hours): Temp Pulse Resp BP Pulse Ox 97.5 F L 65 20 127/72 97 02/28/19 14:00 02/28/19 14:00 02/28/19 14:00 02/28/19 14:00 02/28/19 14:00 Intake and Output: 02/28/19 03/01/19 18:59 06:59 Intake Total 620 Balance 620 - Medications Medications: Current Medications Albuterol/Ipratropium (Duoneb 3 Mg/0.5 Mg (3 Ml) Ud) 3 ml IH [id number] PRN PRN Reason: Shortness of Breath Last Admin: 02/26/19 20:40 Dose: 3 ml Amlodipine Besylate (Norvasc) 5 mg PO DAILY [facility] Last Admin: 02/28/19 09:25 Dose: 5 mg Cefpodoxime Proxetil (Vantin) 200 mg PO Q12 [facility] Last Admin: 02/28/19 21:46 Dose: Not Given Diazepam (Valium) 5 mg PO BID [facility]; Protocol Last Admin: 02/28/19 18:14 Dose: 5 mg Sodium Chloride (Sodium Chloride 0.45%) 1,000 mls @ 50 mls/hr IV .Q20H [facility] Last Admin: 02/28/19 09:25 Dose: Not Given Losartan Potassium (Cozaar) 100 mg PO DAILY [facility] Last Admin: 02/28/19 09:25 Dose: Not Given Metronidazole (Flagyl) 500 mg PO Q8 [facility] Last Admin: 02/28/19 21:45 Dose: Not Given Mupirocin (Bactroban Ointment) 0 gm TOP BID [facility] Last Admin: 02/28/19 21:44 Dose: 1 units Pantoprazole Sodium (Protonix Ec Tab) 40 mg PO 0600 [facility] Last Admin: 02/28/19 06:41 Dose: Not Given - Labs Labs: 02/28/19 07:00 02/28/19 07:00 PT 11.9 SECONDS (9.4-12.5) 02/24/19 17:20 INR 1.07 02/24/19 17:20 APTT 28.2 Seconds (26.9-38.3) 02/24/19 17:20 Attending/Attestation - Attestation I have personally seen and examined this patient.: Yes I have fully participated in the care of the patient.: Yes I have reviewed all pertinent clinical information, including history, physical exam and plan: Yes Notes (Text): This patient was seen and evaluated along with the resident area. This is an addendum to the GI progress report dictated by the resident. Patient was area refusing colonoscopy evaluation however later he she agreed Risk benefits alternatives explained. 02/28/19 23:00
--- NOTE | 2019-02-28 14:18 | CP.PCM.CON ---
<Freddie Bartlett - Last Filed: 02/28/19 15:16> History of Present Illness - History of Present Illness History of Present Illness: Surgery Consult Note for Dr. Herrmann Consult: Suture granuloma HPI: Patient is a 74F, PMHx of COPD w/ home O2, CAD, CHF, HTN, PUD, anxiety, and severe DJD, consulted for suture granuloma. Patient states 2-3 months ago she noticed itching over an old abdominal scar (she cannot recall what surgery). After a few days, the skin became excoriated with a small open wound. From this wound, 3 sutures came out. During an outpatient office visit, patient showed her primary, Dr. Monsivais, these sutures and suspected a possible granuloma. Patient admitted to the hospital for proctitis with further GI work-up pending at this time. ROS negative unless otherwise states in HPI. PMHx: See above PSHx: cardiac cath, h/o partial gastrectomy, hysterectomy, cholecystitis FMH: unknown SHx: active tobacco use, denies alcohol, or illicit drug use ALL: acetaminophen, fish, iodine, mercury Meds: See MAR Review of Systems - Constitutional Constitutional: absent: Chills, Fever, Weight Loss - EENT Eyes: absent: Blurred Vision, Change in Vision Nose/Mouth/Throat: absent: Nasal Congestion, Nasal Discharge - Cardiovascular Cardiovascular: absent: Chest Pain, Dyspnea - Respiratory Respiratory: absent: Cough, Dyspnea - Gastrointestinal Gastrointestinal: Nausea. absent: Abdominal Pain, Bloating - Genitourinary Genitourinary: absent: Difficulty Urinating, Dysuria - Musculoskeletal Musculoskeletal: absent: Back Pain, Neck Pain - Integumentary Integumentary: absent: Bleeding Lesions, Changing Lesions - Neurological Neurological: absent: Confusion, Numbness - Psychiatric Psychiatric: absent: Anxiety, Depression Past Patient History - Infectious Disease Hx of Infectious Diseases: None - Tetanus Immunizations Tetanus Immunization: Unknown - Past Medical History & Family History Past Medical History?: Yes - Past Social History Smoking Status: Current Some Days Smoker Alcohol: None Drugs: Denies Home Situation {Lives}: Alone - CARDIAC Hx Cardiac Disorders: Yes Hx Congestive Heart Failure: Yes Hx Hypertension: Yes - PULMONARY Hx Respiratory Disorders: Yes Hx Chronic Obstructive Pulmonary Disease (COPD): Yes - NEUROLOGICAL Hx Neurological Disorder: No - HEENT Hx HEENT Problems: Yes Hx Cataracts: Yes (sx bilat 2012) Other/Comment: b/l eyelid surg for drooping 2014 - RENAL Hx Chronic Kidney Disease: No - ENDOCRINE/METABOLIC Hx Endocrine Disorders: No - HEMATOLOGICAL/ONCOLOGICAL Hx Blood Transfusions: No Hx Blood Transfusion Reaction: No - INTEGUMENTARY Hx Dermatological Problems: No - MUSCULOSKELETAL/RHEUMATOLOGICAL Hx Musculoskeletal Disorders: Yes Hx Arthritis: Yes - GASTROINTESTINAL Hx Gastrointestinal Disorders: Yes Hx Gastroesophageal Reflux: Yes - GENITOURINARY/GYNECOLOGICAL Hx Genitourinary Disorders: No - PSYCHIATRIC Hx Psychophysiologic Disorder: Yes Hx Anxiety: Yes Hx Panic Symptoms: Yes Other/Comment: hx claustrophobia - SURGICAL HISTORY Hx Surgeries: Yes - ANESTHESIA Hx Anesthesia Reactions: No Hx Malignant Hyperthermia: No Meds Allergies/Adverse Reactions: Allergies Allergy/AdvReac Type Severity Reaction Status Date / Time acetaminophen [From Tylenol] Allergy RASH Verified 02/24/19 15:40 FISH Allergy RASH Verified 02/24/19 15:40 iodine Allergy RASH Verified 02/24/19 15:40 mercury (elemental) Allergy RASH Verified 02/24/19 15:40 shellfish derived Allergy RASH Verified 02/24/19 15:40 azithromycin AdvReac NAUSEA Verified 02/24/19 15:40 steroid Allergy RASH Uncoded 02/24/19 15:40 - Medications Medications: Current Medications Albuterol/Ipratropium (Duoneb 3 Mg/0.5 Mg (3 Ml) Ud) 3 ml IH [id number] PRN PRN Reason: Shortness of Breath Last Admin: 02/26/19 20:40 Dose: 3 ml Amlodipine Besylate (Norvasc) 5 mg PO DAILY [facility] Last Admin: 02/28/19 09:25 Dose: 5 mg Cefpodoxime Proxetil (Vantin) 200 mg PO Q12 [facility] Last Admin: 02/28/19 11:24 Dose: Not Given Diazepam (Valium) 5 mg PO BID [facility]; Protocol Last Admin: 02/28/19 09:22 Dose: 5 mg Sodium Chloride (Sodium Chloride 0.45%) 1,000 mls @ 50 mls/hr IV .Q20H [facility] Last Admin: 02/28/19 09:25 Dose: Not Given Losartan Potassium (Cozaar) 100 mg PO DAILY [facility] Last Admin: 02/28/19 09:25 Dose: Not Given Metronidazole (Flagyl) 500 mg PO Q8 [facility] Last Admin: 02/28/19 14:17 Dose: Not Given Pantoprazole Sodium (Protonix Ec Tab) 40 mg PO 0600 [facility] Last Admin: 02/28/19 06:41 Dose: Not Given Physical Exam - Constitutional Appears: Well, Non-toxic, No Acute Distress - Head Exam Head Exam: ATRAUMATIC, NORMAL INSPECTION, NORMOCEPHALIC - Eye Exam Eye Exam: EOMI - ENT Exam ENT Exam: Mucous Membranes Moist - Respiratory Exam Respiratory Exam: Clear to Auscultation Bilateral, NORMAL BREATHING PATTERN. absent: Wheezes, Respiratory Distress - Cardiovascular Exam Cardiovascular Exam: REGULAR RHYTHM, +S1, +S2. absent: Systolic Murmur - GI/Abdominal Exam GI & Abdominal Exam: Normal Bowel Sounds, Soft. absent: Tenderness - Neurological Exam Neurological exam: Alert, Oriented x3 - Psychiatric Exam Psychiatric exam: Normal Affect, Normal Mood - Skin Additional comments: Vertical lateral abdominal scar from previous surgery with skin excoriation and scabbing, no active purulence or bleeding, mild erythema No visible sutures Results - Vital Signs Recent Vital Signs: Last Vital Signs Temp 97.7 F 02/28/19 06:00 Pulse 79 02/28/19 09:25 Resp 18 02/28/19 06:00 BP 180/83 H 02/28/19 09:25 Pulse Ox 97 02/28/19 06:00 - Labs Result Diagrams: 02/28/19 07:00 02/28/19 07:00 Labs: Laboratory Results - last 24 hr 02/27/19 02/27/19 02/27/19 10:54 15:57 20:44 WBC RBC Hgb Hct MCV MCH MCHC RDW Plt Count MPV Sodium Potassium Chloride Carbon Dioxide Anion Gap BUN Creatinine Est GFR ( Amer) Est GFR (Non-Af Amer) POC Glucose (mg/dL) 120 H 102 148 H Random Glucose Calcium Magnesium Total Bilirubin AST ALT Alkaline Phosphatase Total Protein Albumin Globulin Albumin/Globulin Ratio 02/28/19 02/28/19 02/28/19 06:35 07:00 07:00 WBC 7.6 RBC 5.05 Hgb 14.4 Hct 43.8 MCV 86.7 MCH 28.5 MCHC 32.9 RDW 14.0 Plt Count 233 MPV 9.4 Sodium 141 Potassium 4.2 Chloride 101 Carbon Dioxide 31 Anion Gap 12 BUN 20 Creatinine 0.8 Est GFR ( Amer) > 60 Est GFR (Non-Af Amer) > 60 POC Glucose (mg/dL) 106 Random Glucose 124 H Calcium 9.4 Magnesium 2.1 Total Bilirubin 0.8 AST 34 ALT 29 Alkaline Phosphatase 77 Total Protein 7.3 Albumin 3.9 Globulin 3.4 Albumin/Globulin Ratio 1.2 02/28/19 11:41 WBC RBC Hgb Hct MCV MCH MCHC RDW Plt Count MPV Sodium Potassium Chloride Carbon Dioxide Anion Gap BUN Creatinine Est GFR ( Amer) Est GFR (Non-Af Amer) POC Glucose (mg/dL) 86 Random Glucose Calcium Magnesium Total Bilirubin AST ALT Alkaline Phosphatase Total Protein Albumin Globulin Albumin/Globulin Ratio Assessment & Plan - Assessment and Plan (Free Text) Assessment: 74F w/ suture granuloma Plan: Patient to follow up with Dr. Herrmann in office for suture granuloma removal No acute surgical intervention indicated at this time Please reconsult as needed D/w Dr. Montez Bartlett PGY1 <Turner Herrmann - Last Filed: 02/28/19 20:50> Meds - Medications Medications: Current Medications Albuterol/Ipratropium (Duoneb 3 Mg/0.5 Mg (3 Ml) Ud) 3 ml IH [id number] PRN PRN Reason: Shortness of Breath Last Admin: 02/26/19 20:40 Dose: 3 ml Amlodipine Besylate (Norvasc) 5 mg PO DAILY [facility] Last Admin: 02/28/19 09:25 Dose: 5 mg Cefpodoxime Proxetil (Vantin) 200 mg PO Q12 [facility] Last Admin: 02/28/19 11:24 Dose: Not Given Diazepam (Valium) 5 mg PO BID [facility]; Protocol Last Admin: 02/28/19 18:14 Dose: 5 mg Sodium Chloride (Sodium Chloride 0.45%) 1,000 mls @ 50 mls/hr IV .Q20H [facility] Last Admin: 02/28/19 09:25 Dose: Not Given Losartan Potassium (Cozaar) 100 mg PO DAILY [facility] Last Admin: 02/28/19 09:25 Dose: Not Given Metronidazole (Flagyl) 500 mg PO Q8 [facility] Last Admin: 02/28/19 14:17 Dose: Not Given Mupirocin (Bactroban Ointment) 0 gm TOP BID [facility] Pantoprazole Sodium (Protonix Ec Tab) 40 mg PO 0600 [facility] Last Admin: 02/28/19 06:41 Dose: Not Given Results - Vital Signs Recent Vital Signs: Last Vital Signs Temp 97.5 F L 02/28/19 14:00 Pulse 65 02/28/19 14:00 Resp 20 02/28/19 14:00 BP 127/72 02/28/19 14:00 Pulse Ox 97 02/28/19 14:00 - Labs Result Diagrams: 02/28/19 07:00 02/28/19 07:00 Labs: Laboratory Results - last 24 hr 02/28/19 02/28/19 02/28/19 06:35 07:00 07:00 WBC 7.6 RBC 5.05 Hgb 14.4 Hct 43.8 MCV 86.7 MCH 28.5 MCHC 32.9 RDW 14.0 Plt Count 233 MPV 9.4 Sodium 141 Potassium 4.2 Chloride 101 Carbon Dioxide 31 Anion Gap 12 BUN 20 Creatinine 0.8 Est GFR ( Amer) > 60 Est GFR (Non-Af Amer) > 60 POC Glucose (mg/dL) 106 Random Glucose 124 H Calcium 9.4 Magnesium 2.1 Total Bilirubin 0.8 AST 34 ALT 29 Alkaline Phosphatase 77 Total Protein 7.3 Albumin 3.9 Globulin 3.4 Albumin/Globulin Ratio 1.2 02/28/19 02/28/19 11:41 15:57 WBC RBC Hgb Hct MCV MCH MCHC RDW Plt Count MPV Sodium Potassium Chloride Carbon Dioxide Anion Gap BUN Creatinine Est GFR ( Amer) Est GFR (Non-Af Amer) POC Glucose (mg/dL) 86 144 H Random Glucose Calcium Magnesium Total Bilirubin AST ALT Alkaline Phosphatase Total Protein Albumin Globulin Albumin/Globulin Ratio Assessment & Plan - Assessment and Plan (Free Text) Plan: 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
--- NOTE | 2019-02-28 14:42 | PN ---
DATE: 02/28/2019 SUBJECTIVE: The patient is 74-year-old was seen in office with persistent intermittent diarrhea for almost one month with abdominal discomfort, complain of nausea and decreased appetite. The patient underwent mural thickening has been on IV antibiotics. The patient on examination, still complain of diarrhea. She is agreeable for colonoscopy in the morning. PHYSICAL EXAMINATION: GENERAL: She is awake, alert and able to communicate. VITAL SIGNS: She is afebrile. Pulse 79, respiration 18 and blood pressure 134/61. LUNGS: Bilateral fair airflow. No rhonchi or crackle. HEART: S1 and S2, audible. ABDOMEN: Soft. Left lower quadrant discomfort. NEUROLOGIC: The patient is awake, alert and able to communicate. EXTREMITIES: Bilateral leg no edema. LABORATORY DATA: WBC 7.6, hemoglobin 14, hematocrit 43 and platelet 233. Chemistry; sodium 141, potassium 4.2, chloride 101, CO2 of 31, BUN 20, creatinine 0.8 and blood sugar of 124. Her urinalysis shows small leukocyte. Stool Hemoccult is negative. CT scan of the abdomen and pelvis shows mural thickening of descending rectosigmoid area. ASSESSMENT: 1. Recurrent severe diarrhea, etiology unclear. 2. Hypertension. 3. Insulin-dependant diabetes. 4. History of partial colectomy. PLAN: Currently, the patient is on IV fluid. She is on liquid diet. She is on amlodipine, I will discuss with Dr. Sarmiento. The patient agreed for colonoscopy . Prachi Monsivais MD
[2019-02-28] MEDS: Mupirocin 2% Ointment 15 GM TUBE TOP SCH (21:44)
[2019-03-01] MEDS: Pantoprazole 40 mg EC Tab PO SCH (06:20)
[2019-03-01] MEDS: Sodium Chloride 0.45% 1,000 ML IV SCH (06:20)
--- NOTE | 2019-03-01 09:07 | CP.PCM.PN ---
<Mariel Barone - Last Filed: 03/01/19 11:13> Subjective - Date & Time of Evaluation Date of Evaluation: 03/01/19 Time of Evaluation: 09:04 - Subjective Subjective: Mariel Braone, PGY2, GI Progress Note for Dr Sarmiento: Patient seen and examined at bedside. No acute events overnight. Patient reports 3-4 watery diarrheal BMs yesterday morning. Patient then switched to CLD. Patient reports ongoing abdominal pain, no nausea/vomiting. States that she is ready for her colonoscopy tomorrow. Objective - Vital Signs/Intake and Output Vital Signs (last 24 hours): Temp Pulse Resp BP Pulse Ox 97.5 F L 61 18 151/85 H 98 03/01/19 07:47 03/01/19 07:47 03/01/19 07:47 03/01/19 07:47 03/01/19 07:47 Intake and Output: 03/01/19 03/01/19 06:59 18:59 Intake Total 620 Balance 620 - Medications Medications: Current Medications Albuterol/Ipratropium (Duoneb 3 Mg/0.5 Mg (3 Ml) Ud) 3 ml IH [id number] PRN PRN Reason: Shortness of Breath Last Admin: 02/26/19 20:40 Dose: 3 ml Amlodipine Besylate (Norvasc) 5 mg PO DAILY [facility] Last Admin: 02/28/19 09:25 Dose: 5 mg Cefpodoxime Proxetil (Vantin) 200 mg PO Q12 [facility] Last Admin: 02/28/19 21:46 Dose: Not Given Diazepam (Valium) 5 mg PO BID [facility]; Protocol Last Admin: 02/28/19 18:14 Dose: 5 mg Sodium Chloride (Sodium Chloride 0.45%) 1,000 mls @ 50 mls/hr IV .Q20H [facility] Last Admin: 03/01/19 06:20 Dose: Not Given Losartan Potassium (Cozaar) 100 mg PO DAILY [facility] Last Admin: 02/28/19 09:25 Dose: Not Given Metronidazole (Flagyl) 500 mg PO Q8 [facility] Last Admin: 03/01/19 06:20 Dose: Not Given Mupirocin (Bactroban Ointment) 0 gm TOP BID [facility] Last Admin: 02/28/19 21:44 Dose: 1 units Pantoprazole Sodium (Protonix Ec Tab) 40 mg PO 0600 [facility] Last Admin: 03/01/19 06:20 Dose: Not Given - Labs Labs: 02/28/19 07:00 02/28/19 07:00 PT 11.9 SECONDS (9.4-12.5) 02/24/19 17:20 INR 1.07 02/24/19 17:20 APTT 28.2 Seconds (26.9-38.3) 02/24/19 17:20 - Additional Findings Additional findings: - Constitutional Appears: Non-toxic, No Acute Distress - Head Exam Head Exam: ATRAUMATIC, NORMOCEPHALIC Additional comments: + facial hair noted. + signs of virilization - Eye Exam Eye Exam: EOMI, PERRL. absent: Conjunctival injection, Nystagmus, Scleral icterus Pupil Exam: NORMAL ACCOMODATION, PERRL. absent: Irregular, Miosis, Mydriatic - ENT Exam ENT Exam: Mucous Membranes Moist - Neck Exam Neck exam: Positive for: Full Rom - Respiratory Exam Respiratory Exam: Clear to Auscultation Bilateral, NORMAL BREATHING PATTERN. absent: Chest Wall Tenderness, Rhonchi, Respiratory Distress, Stridor - Cardiovascular Exam Cardiovascular Exam: RRR, +S1, +S2. absent: Systolic Murmur - GI/Abdominal Exam GI & Abdominal Exam: Normal Bowel Sounds. absent: Distended, Firm, Guarding, Mass, Rebound, Rigid Additional comments: + midline scar noted. + tenderness to palpation in LUQ and LLQ - Extremities Exam Extremities exam: Positive for: normal inspection. Negative for: calf tenderness, pedal edema - Back Exam Back exam: NORMAL INSPECTION - Neurological Exam Neurological exam: Alert, Oriented x3 - Psychiatric Exam Psychiatric exam: Normal Affect, Normal Mood - Skin Skin Exam: Dry, Normal Color, Warm Assessment and Plan - Assessment and Plan (Free Text) Assessment: # Pancolitis # Diarrhea, abdominal pain # COPD on home 2L O2 # HTN # DJD # GERD # h/o h pylori - continue with CLD - Flex sigmoidoscopy 02/25 showed diminutive polyp in sigmoid colon, removed with cold biopsy forceps. rectosigmoid normal, internal hemorrhoids. - scheduled for colonoscopy, likely on Thursday. Will give Golytely today around 1 PM with dulcolax at 7 PM and 8 AM tomorrow morning. - continue with antibiotics - further recs per Dr Sarmiento. Case seen and discussed with Dr Sarmiento. <Holden Sarmiento V - Last Filed: 03/01/19 23:52> Objective - Vital Signs/Intake and Output Vital Signs (last 24 hours): Temp Pulse Resp BP Pulse Ox 97.5 F L 66 18 162/85 H 96 03/01/19 22:07 03/01/19 22:07 03/01/19 22:07 03/01/19 22:07 03/01/19 22:07 Intake and Output: 03/01/19 03/02/19 18:59 06:59 Intake Total 720 620 Balance 720 620 - Medications Medications: Current Medications Albuterol/Ipratropium (Duoneb 3 Mg/0.5 Mg (3 Ml) Ud) 3 ml IH [id number] PRN PRN Reason: Shortness of Breath Last Admin: 02/26/19 20:40 Dose: 3 ml Amlodipine Besylate (Norvasc) 5 mg PO DAILY [facility] Last Admin: 03/01/19 09:58 Dose: 5 mg Bisacodyl (Dulcolax) 5 mg PO ONCE ONE Stop: 03/02/19 08:01 Cefpodoxime Proxetil (Vantin) 200 mg PO Q12 [facility] Last Admin: 03/01/19 21:14 Dose: Not Given Diazepam (Valium) 5 mg PO BID [facility]; Protocol Last Admin: 03/01/19 17:43 Dose: 5 mg Sodium Chloride (Sodium Chloride 0.45%) 1,000 mls @ 50 mls/hr IV .Q20H [facility] Last Admin: 03/01/19 06:20 Dose: Not Given Losartan Potassium (Cozaar) 100 mg PO DAILY [facility] Last Admin: 03/01/19 09:59 Dose: Not Given Metronidazole (Flagyl) 500 mg PO Q8 [facility] Last Admin: 03/01/19 21:13 Dose: Not Given Mupirocin (Bactroban Ointment) 0 gm TOP BID [facility] Last Admin: 03/01/19 17:43 Dose: 1 applic Pantoprazole Sodium (Protonix Ec Tab) 40 mg PO 0600 [facility] Last Admin: 03/01/19 06:20 Dose: Not Given - Labs Labs: 02/28/19 07:00 02/28/19 07:00 PT 12.3 SECONDS (9.4-12.5) 03/01/19 10:00 INR 1.09 03/01/19 10:00 APTT 28.2 Seconds (26.9-38.3) 02/24/19 17:20 Attending/Attestation - Attestation I have personally seen and examined this patient.: Yes I have fully participated in the care of the patient.: Yes I have reviewed all pertinent clinical information, including history, physical exam and plan: Yes Notes (Text): This patient was seen and evaluated earlier along with the medical consultant. This is an addendum to the GI progress report dictated by the resident. Finally the patient agreed for colonoscopy evaluation. Patient is being prepared questionable history of inflammatory bowel disease. Flexible sigmoidoscopy did not reveal any active colitis. Abnormal CAT scan showing thickening of the colon and rectosigmoid. History of polyps before. Complains of lower abdominal and left-sided discomfort before with the loose bowel movements. Colonoscopy scheduled for tomorrow to further evaluate 03/01/19 23:51
[2019-03-01] MEDS: Mupirocin 2% Ointment 15 GM TUBE TOP SCH ×2 (09:57→17:43)
[2019-03-01] MEDS: Cefpodoxime (Vantin) 200 mg Tab PO SCH ×2 (09:58→21:14)
[2019-03-01 10:15] LABS: INR 1.09; PROTHROMBIN TIME 12.3 SECONDS (9.4-12.5)
[2019-03-01] MEDS ORDERED: NuLYTELY (NACL/NAHCO3/KCL/PEG) 4L PO ONE (13:00)
[2019-03-01] MEDS ORDERED: Bisacodyl 5mg EC Tab PO ONE (19:00)
--- NOTE | 2019-03-02 01:35 | PN ---
DATE: 03/01/2019 SUBJECTIVE: The patient is a 74-year-old, seen and examined, still has abdominal discomfort in the left lower quadrant area. Complaint of mid back pain. Complaint of still having water diarrhea and no appetite. PHYSICAL EXAMINATION VITAL SIGNS: She is afebrile, pulse 66, respirations 18, blood pressure 168/85. LUNGS: Bilateral fair airflow. No rhonchi or crackle. HEART: S1, S2 audible. ABDOMEN: Soft. Left upper quadrant and left lower quadrant palpable discomfort. NEUROLOGIC: She is awake and alert, able to communicate. LABORATORY DATA: Stool for Hemoccult is negative. ASSESSMENT: 1. Intractable diarrhea. 2. Mural thickening with nonspecific colitis. 3. Hypertension. 4. Noninsulin-dependent diabetes. PLAN: We will continue the patient on IV fluid. She is on IV antibiotics. Continue her Protonix. She is on a liquid diet; however, she is scheduled for colonoscopy in a.m. Prachi Monsivais MD
[2019-03-02] MEDS: Pantoprazole 40 mg EC Tab PO SCH (06:28)
[2019-03-02] MEDS: Sodium Chloride 0.45% 1,000 ML IV SCH (06:28)
[2019-03-02 07:39] LABS: BASO # 0.04 K/mm3 (0.0-2.0); BASO % 0.5 % (0.0-3.0); EOS # 0.2 (0.0-0.7); EOS % 2.6 % (1.5-5.0); HEMOGLOBIN 14.1 g/dL (12.0-16.0); INR 1.12; LYMPH # 3.2 (1.2-3.4); LYMPH % 38.1 % (22.0-35.0); MEAN CELL VOLUME 87.6 fl (80.0-105.0); MEAN CORPUSCULAR HEMOGLOBIN 28.2 pg (25.0-35.0); MEAN CORPUSCULAR HGB CONC 32.2 g/dl (31.0-37.0); MEAN PLATELET VOLUME 9.3 fl (7.0-11.0); MONO # 0.7 (0.1-0.6); MONO % 8.3 % (1.0-6.0); PROTHROMBIN TIME 12.7 SECONDS (9.4-12.5); RED CELL DISTRIBUTION WIDTH 14.3 % (11.5-14.5); WHITE BLOOD COUNT 8.3 10^3/uL (4.5-11.0)
[2019-03-02 07:49] LABS: ALB/GLOB RATIO 1.2 (1.1-1.8); ALBUMIN 4.1 g/dL (3.0-4.8); ALT/SGPT 26 U/L (7-56); AST/SGOT 27 U/L (14-36); BLOOD UREA NITROGEN 14 mg/dL (7-21); CALCIUM 9.6 mg/dL (8.4-10.5); GFR NON-AFRICAN AMERICAN > 60
[2019-03-02] MEDS ORDERED: Bisacodyl 5mg EC Tab PO ONE (08:00)
[2019-03-02] MEDS: Cefpodoxime (Vantin) 200 mg Tab PO SCH (09:11)
[2019-03-02] MEDS: Mupirocin 2% Ointment 15 GM TUBE TOP SCH ×2 (10:26→19:35)
--- NOTE | 2019-03-02 12:13 | RAD ---
Date of service: 03/02/2019 PROCEDURE: Radiographs of the Lumbar Spine. HISTORY: pain COMPARISON: No prior. TECHNIQUE: 5 views obtained. FINDINGS: BONES: Normal alignment. No listhesis. No fracture. DISC SPACES: Unremarkable. OTHER FINDINGS: Mild facet arthropathy at L5-S1 aortic calcification IMPRESSION: Unremarkable radiographs of the lumbar spine.
--- NOTE | 2019-03-02 12:13 | RAD ---
Date of service: 03/02/2019 HISTORY: pain COMPARISON: No prior. TECHNIQUE: 2 views obtained. FINDINGS: BONES: Alignment maintained. No fracture. DISC SPACES: Normal. SOFT TISSUES: Normal. OTHER FINDINGS: None. IMPRESSION: Normal radiographs of the thoracic spine.
[2019-03-02] MEDS ORDERED: Propofol 10 mg/ml Inj (20 ML) ONE (17:47)
[2019-03-02] MEDS ORDERED: Etomidate 20 mg/10ml Inj IV ONE (18:12)
[2019-03-02] MEDS ORDERED: Sodium Chloride 0.9% 1,000 ML IV SCH (18:30)
--- NOTE | 2019-03-02 23:46 | PN ---
DATE: 03/02/2019 SUBJECTIVE: Patient is 74 years old, seen and examined. Complained of back pain. Had x-ray done, seems to be unremarkable. Had colonoscopy done today, seems to be unremarkable. PHYSICAL EXAMINATION: GENERAL: She is awake and alert, able to communicate. VITAL SIGNS: She is afebrile. Pulse 63, respirations 16, blood pressure 172/68. LUNGS: Bilateral fair airflow. No rhonchi or crackles. HEART: S1 and S2 audible. ABDOMEN: Soft and nontender. No rebound. No guarding except in the left upper and lower quadrant area, she has palpable discomfort. NEUROLOGIC: She is awake and alert, able to communicate. LABORATORY DATA: WBC is 8.3, hemoglobin 14, hematocrit 43, and platelets 246. Chemistry; sodium 139, potassium 4.1, chloride 102, CO2 of 28, BUN 14, creatinine 0.7. Blood sugar 111. Stool cultures are negative. Stool C. diff is negative. Upper endoscopy and colonoscopy are unremarkable. Lumbosacral x-ray is unremarkable. PLAN: Discussed with Dr. Sarmiento. We will discontinue IV fluids, advance her diet. IBD serology. C. reactive disease profile and a chromogranin level has been ordered to rule out carcinoid. We will advance her diet and reevaluate in a.m. Prachi Monsivais MD
[2019-03-03 02:23] VITALS: RESP 18
[2019-03-03] MEDS: Pantoprazole 40 mg EC Tab PO SCH (06:15)
--- NOTE | 2019-03-03 07:42 | CP.PCM.PN ---
<Luz Elena Reyes - Last Filed: 03/03/19 07:36> Subjective - Date & Time of Evaluation Date of Evaluation: 03/03/19 Time of Evaluation: 07:37 - Subjective Subjective: Gastroenterology Fellow/PGY6 Progress Note Patient feels well. Tolerating regular diet. Denies abdominal pain. Denies A 12- point review of systems negative except for as above. Objective - Vital Signs/Intake and Output Vital Signs (last 24 hours): Temp Pulse Resp BP Pulse Ox 98 F 62 18 138/84 98 03/02/19 22:00 03/02/19 22:00 03/02/19 22:00 03/02/19 22:00 03/02/19 22:00 Intake and Output: 03/03/19 03/03/19 06:59 18:59 Intake Total 360 Balance 360 - Medications Medications: Current Medications Albuterol/Ipratropium (Duoneb 3 Mg/0.5 Mg (3 Ml) Ud) 3 ml IH [id number] PRN PRN Reason: Shortness of Breath Last Admin: 02/26/19 20:40 Dose: 3 ml Amlodipine Besylate (Norvasc) 5 mg PO DAILY [facility] Last Admin: 03/02/19 09:16 Dose: 5 mg Diazepam (Valium) 5 mg PO BID [facility]; Protocol Last Admin: 03/02/19 18:00 Dose: Not Given Losartan Potassium (Cozaar) 100 mg PO DAILY [facility] Last Admin: 03/02/19 09:10 Dose: Not Given Metronidazole (Flagyl) 500 mg PO Q8 [facility] Last Admin: 03/03/19 06:15 Dose: Not Given Mupirocin (Bactroban Ointment) 0 gm TOP BID [facility] Last Admin: 03/02/19 19:35 Dose: Not Given Pantoprazole Sodium (Protonix Ec Tab) 40 mg PO 0600 [facility] Last Admin: 03/03/19 06:15 Dose: Not Given - Labs Labs: 03/02/19 06:30 03/02/19 06:30 PT 12.7 SECONDS (9.4-12.5) H 03/02/19 06:30 INR 1.12 03/02/19 06:30 APTT 28.2 Seconds (26.9-38.3) 02/24/19 17:20 - Constitutional Appears: Non-toxic, No Acute Distress - Head Exam Head Exam: ATRAUMATIC, NORMOCEPHALIC - Eye Exam Eye Exam: EOMI, PERRL. absent: Scleral icterus Pupil Exam: PERRL. absent: Miosis, Mydriatic - ENT Exam ENT Exam: Mucous Membranes Moist, Normal Oropharynx - Neck Exam Neck Exam: Full ROM, Normal Inspection - Respiratory Exam Respiratory Exam: Clear to Ausculation Bilateral. absent: Rales, Rhonchi, Wheezes - Cardiovascular Exam Cardiovascular Exam: RRR, +S1, +S2. absent: Gallop, Rubs - GI/Abdominal Exam GI & Abdominal Exam: Soft, Normal Bowel Sounds. absent: Distended, Firm, Guarding, Rigid, Tenderness, Organomegaly, Rebound - Extremities Exam Extremities Exam: Normal Inspection. absent: Pedal Edema - Neurological Exam Neurological Exam: Alert, Awake - Psychiatric Exam Psychiatric exam: Normal Affect, Normal Mood - Skin Skin Exam: Dry, Intact, Normal Color, Warm Assessment and Plan - Assessment and Plan (Free Text) Assessment: 74 year old female with PMH of HTN, DJD, COPD presenting with abdominal pain and diarrhea. Active tretment of abdominal pain with CT A/p showing thickening of rectosigmoid colon in a patient with questionable history of IBD. Status post flexible sigmoidoscopy on 02/25 with normal rectosigmoid mucosa and biopsies showing no active colitis and negative for microscopic colitis. Plan: -POD1 (03/02) colonoscopy showing no active colitis -biopsies pending to rule out active colitis and microscopic colitis -tolerating regular diet -stool infectious workup negative -patient refuses to take Flagyl ordered on admission -remains afebrile, WBC count, and pain resolved -follow up with GI outpatient to re-assess symptoms -thank you for opportunity to participate in the care of this patient -please contact with questions or concerns <Holden Sarmiento V - Last Filed: 03/04/19 22:09> Objective - Vital Signs/Intake and Output Vital Signs (last 24 hours): Temp Pulse Resp BP Pulse Ox 98.4 F 63 18 145/65 96 03/03/19 14:00 03/03/19 14:00 03/03/19 14:00 03/03/19 14:00 03/03/19 14:00 Intake and Output: 03/03/19 03/04/19 18:59 06:59 Intake Total 1080 720 Balance 1080 720 - Medications Medications: Current Medications Albuterol/Ipratropium (Duoneb 3 Mg/0.5 Mg (3 Ml) Ud) 3 ml IH [id number] PRN PRN Reason: Shortness of Breath Last Admin: 02/26/19 20:40 Dose: 3 ml Amlodipine Besylate (Norvasc) 5 mg PO DAILY [facility] Last Admin: 03/03/19 10:33 Dose: 5 mg Diazepam (Valium) 5 mg PO BID [facility]; Protocol Last Admin: 03/03/19 18:17 Dose: 5 mg Losartan Potassium (Cozaar) 100 mg PO DAILY [facility] Last Admin: 03/03/19 11:08 Dose: Not Given Metronidazole (Flagyl) 500 mg PO Q8 [facility] Last Admin: 03/03/19 21:24 Dose: Not Given Mupirocin (Bactroban Ointment) 0 gm TOP BID [facility] Last Admin: 03/03/19 11:08 Dose: Not Given Pantoprazole Sodium (Protonix Ec Tab) 40 mg PO 0600 [facility] Last Admin: 03/03/19 06:15 Dose: Not Given - Labs Labs: 03/02/19 06:30 03/02/19 06:30 PT 12.7 SECONDS (9.4-12.5) H 03/02/19 06:30 INR 1.12 03/02/19 06:30 APTT 28.2 Seconds (26.9-38.3) 02/24/19 17:20 Attending/Attestation - Attestation I have personally seen and examined this patient.: Yes I have fully participated in the care of the patient.: Yes I have reviewed all pertinent clinical information, including history, physical exam and plan: Yes Notes (Text): This is an addendum to the GI progress report dictated by the fellow. The patient was seen along with the GI fellow earlier today Patient is tolerating the diet colonoscopies findings were reviewed with the patient. Patient needs a follow-up in the office follow-up of the IBD serology Coumadin the levels and celiac disease profile. Advise follow-up with PCP and follow-up in our office biopsies were taken rule out microscopic colitis 03/04/19 00:11
[2019-03-03] MEDS: Mupirocin 2% Ointment 15 GM TUBE TOP SCH (11:08)
--- NOTE | 2019-03-03 11:23 | CP.PCM.PCO ---
Physician Communication Note - Physician Communication Note Physician Communication Note: Dx: 34 y/o suture granuloma/Rx Bactroban/No surgery
[2019-03-03 14:48] VITALS: PULSE 63; TEMP 98.4; O2SAT 96
--- NOTE | 2019-03-04 00:50 | DS ---
HISTORY OF PRESENT ILLNESS: The patient is 74 years old, seen and examined, still has back pain, still has left upper and lower quadrant pain. She has a small wound in her left side of mid abdominal area that has scanty discharge from it. PHYSICAL EXAMINATION: VITAL SIGNS: She is afebrile. Pulse 72, respirations 18, blood pressure 130/65. LUNGS: Bilateral fair airflow. No rhonchi or crackle. HEART: S1 and S2 audible. ABDOMEN: Soft, nontender. No rebound. No guarding. NEUROLOGICAL: She is awake and alert, communicative, ambulatory. Complained of intractable back pain, does not want to take much of pain medications. DIAGNOSTIC DATA: She has thoracic and lumbar x-rays done, they are negative for compression fracture but have DJD. She is refusing MRI, because of claustrophobia. LABORATORY DATA: Blood sugar is 109. ASSESSMENT: 1. Intractable diarrhea, intermittent for almost a month. Stool Clostridium difficile was negative. The patient had endoscopy and colonoscopy done, both are unremarkable. Biopsies are taken, results are not available. 2. Hypertension. 3. Noninsulin-dependent diabetes. 4. History of Helicobacter pylori gastritis. PLAN: I spoke to Dr. Sarmiento. The patient has been started on regular diet, so far no diarrhea noticed. She is advised to take Imodium as needed, since there is no infectious process detected so far. IDB serologies, celiac disease, profile and chromogen level have been ordered. We will follow up as outpatient. The patient will be discharged home today. Prachi Monsivais MD
[2019-03-04] MEDS: Pantoprazole 40 mg EC Tab PO SCH (05:51)
[2019-03-04 09:00] VITALS: BP 148/68
[2019-03-04] MEDS: Mupirocin 2% Ointment 15 GM TUBE TOP SCH (10:21)
--- NOTE | 2019-03-04 23:03 | DS ---
HISTORY OF PRESENT ILLNESS: The patient is a 74-year-old who was having intractable diarrhea for almost a month. The patient was admitted in July, with COPD exacerbation. She was also given short course of antibiotics month and half ago for bronchitis. Her stool C. diff checked in office was negative. Because of her generalized weakness, dehydration and persistent watery diarrhea, she was referred to emergency room for further evaluation. She had endoscopy, colonoscopy done unremarkable. Path report is also negative. She was seen by Dr. Sarmiento and had above-mentioned procedures done, both were unremarkable. PHYSICAL EXAMINATION: GENERAL: Today, she is awake, alert, oriented, communicative. VITAL SIGNS: She is afebrile, pulse 63, respirations 18, blood pressure 148/68. LUNGS: Bilateral fair airflow. No rhonchi or crackle. HEART: S1, S2 audible. ABDOMEN: Soft. Slight left upper and lower quadrant palpable discomfort. 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 NEUROLOGIC: She is awake and alert, able to communicate. LABORATORY DATA: Blood sugar is 107. Celiac disease profile is negative. CT scan of the abdomen and pelvis is negative. PLAN: The patient is being discharged home. She was advised to take Imodium as needed. She will take Norvasc 5 mg daily. She will stay on Valium 5 mg twice a day and she will follow up with Dr. Sarmiento as outpatient. Will follow up her IBD serology, celiac disease profile as outpatient. Prachi Monsivais MD
== END 2019-03-04 14:55 | disposition home or self-care (01) | DRG 392 ==
LOC: ED 15:20 → ERH 20:28 → 5RSO 02-25 00:49
PROVIDERS: ADMIT Internal Medicine; ATTEND Internal Medicine
PROC: 0DBN8ZZ Excision of Sigmoid Colon, Via Natural or Artificial Opening Endoscopic (ICD-10-PCS; principal; 2019-02-25 14:45)
PROC: 0DBG8ZX Excision of Left Large Intestine, Via Natural or Artificial Opening Endoscopic, Diagnostic (ICD-10-PCS; 2019-03-02)
PROC: 0DBL8ZX Excision of Transverse Colon, Via Natural or Artificial Opening Endoscopic, Diagnostic (ICD-10-PCS; 2019-03-02)
PROC: 0DBF8ZX Excision of Right Large Intestine, Via Natural or Artificial Opening Endoscopic, Diagnostic (ICD-10-PCS; 2019-03-02)
DX: K52.9 Noninfective gastroenteritis and colitis, unspecified (principal); I11.0 Hypertensive heart disease with heart failure; J44.9 Chronic obstructive pulmonary disease, unspecified; I25.10 Atherosclerotic heart disease of native coronary artery without angina pectoris; R42 Dizziness and giddiness; K21.9 Gastro-esophageal reflux disease without esophagitis; F40.240 Claustrophobia; F41.0 Panic disorder [episodic paroxysmal anxiety]; E11.9 Type 2 diabetes mellitus without complications; K64.1 Second degree hemorrhoids; K63.5 Polyp of colon; I50.9 Heart failure, unspecified; M19.90 Unspecified osteoarthritis, unspecified site; Z91.14 Patient's other noncompliance with medication regimen; Z99.81 Dependence on supplemental oxygen; Z72.0 Tobacco use; T81.89XS Other complications of procedures, not elsewhere classified, sequela; Z90.3 Acquired absence of stomach [part of]; Z95.5 Presence of coronary angioplasty implant and graft